=== PATIENT | female | born 1960 | race Caucasian/White ===

== ENCOUNTER 2018-03-29 15:15 | Inpatient (IN) | payer MEDICARE, SELFPAY ==
[2018-03-29 15:37] VITALS: BP 100/59; PULSE 78; RESP 16; TEMP 36.7; O2SAT 92; BMI 20.7
[2018-03-29 16:00] VITALS: BP 100/59; PULSE 78; RESP 16; TEMP 36.7; O2SAT 92
--- NOTE | 2018-03-29 16:47 | PCM.PROGNOTE ---
<Ye Momin - Last Filed: 03/29/18 16:47> Subjective: This is a 57 year old female sent to the rehab unit following meningioma resection (9th occurrence) and CHARGE AUDITOR shunt placement in [facility] per Dr. Carolina. She has had decline in balance and requires PTOT prior to return home. She has had a recurrent meningioma and CSF leak. She experienced some hallucinations at the hospital prior to DC and initially today was wanting to go home apparently not wanting to be here and not remembering that she needed rehab but her son calmed her down. She also initially was not sure where she was but at the moment seems to have retained what the nurse told her. She reports of mild frontal right sided headache and blurry left eye vision. She also complains of no BM in 11 days. She has BL lower abdominal discomfort. No Nausea or vomiting. No issues with suture sights. No Fevers or chills. She has a listed hx of HTN but it is well controlled and she does not take anything for this. - Physical Exam General: Alert, Oriented x3, Cooperative HEENT: PERRLA, EOMI, Normocephalic, - - post surgical skull. sutures intact, no inflammation Neck: Supple, No JVD, Negative Carotid Bruits Lungs: Clear to auscultation, Normal air movement Cardiovascular: Regular rate, No murmurs, - Abdomen: Bowel Sounds Present, Soft, Non Tender, Hypoactive Bowel Sounds, - - right abdomen suture Extremities: No edema, Capillary Refill Less than 3 Seconds Skin: No rashes, No breakdown, - Musculoskeletal: No Tenderness to Palpation of Joints or Extremities Neurological: Cranial nerves II-XII grossly intact Psych/Mental Status: Normal Affect, Appropriate, Alert and oriented to time, place, person, mood and affect Vital Signs Temp Pulse Resp BP Pulse Ox 98.1 F 78 16 100/59 L 92 03/29/18 16:00 03/29/18 16:00 03/29/18 16:00 03/29/18 16:00 03/29/18 16:00 Oxygen Delivery Method Room Air Weight: 59.9 kg Body Mass Index (BMI) 20.7 Assessment/Plan 1. Recurrent Meningioma and CSF leak s/p resection and CHARGE AUDITOR shunt (on 03/15/2018) - Right sphenoid wing. Surgeon was Dr. Carolina. Monitor for recurrent hallucinations, impulsive behavior, memory deficits. Recurrent - 9th surgery. -tylenol for headache 2. HTN - stable, not on meds 3. Constipation - initiate bowel protocol 4. Debility/Unsteady gait - PTOT per rehab team. 5. Moderate protein calorie malnutrition - dietary eval/supplements. This patient was seen by Ye Momin PA-C under the supervision of Dr. Solo <ShaileshpilyIdania morgan - Last Filed: 03/29/18 18:38> - Physical Exam Vital Signs Temp Pulse Resp BP Pulse Ox 98.1 F 78 16 100/59 L 95 03/29/18 16:00 03/29/18 16:00 03/29/18 16:00 03/29/18 16:00 03/29/18 17:10 Oxygen Delivery Method Room Air Weight: 132 lb 0.91 oz Body Mass Index (BMI) 20.7 Assessment/Plan Hospitalist note: I am seeing this patient in conjunction with Ye Momin. I independently seen and examined the patient. Progress note above reviewed and I agree with above treatment plan. Patient was admitted to rehabilitation unit after she underwent meningioma resection and CHARGE AUDITOR shunt placement on March 15, 2018. Her history of recurrent meningiomas, this is the ninth recurrence. We are seeing this patient in consultation for medical management after admission to rehabilitation unit. Patient has been having some issues with hallucination. She does have right eye ptosis and according to her, this is because of the 1 of the surgeries for the meningioma. At this time, her vital signs are stable. - Physical Exam General: Alert, Oriented x3, Cooperative, No apparent distress. HEENT: Atraumatic, PERRLA, EOMI. Neck: Supple, No JVD, Negative Carotid Bruits, Trachea Midline, Thyroid Normal. Lungs: Clear to auscultation, Normal air movement, No rhonchi, No wheeze, No rales. Cardiovascular: Regular rate, Regular Rhythm, Normal S1, Normal S2, PMI Normal. Abdomen: Bowel Sounds Present, Soft, Non Tender, Non-Distended, No Hepato-splenomegaly. Extremities: No clubbing, No cyanosis, No edema Skin: No rashes, No breakdown Neurological: Right eye ptosis, other cranial nerves are intact, normal power and tone of all limbs. Vital Signs are stable. Assessment and plan: #1 status post meningioma resection and CHARGE AUDITOR shunt due to CSF leak, this was performed on March 15, 2018. Vital signs are stable. Plan for PT OT according to rehab team. CBC and BMP ordered for tomorrow. #2 other chronic medical problems: Stable, continue current medications as above. This note was generated with [employer] dictation software. It may contain incorrect words, spelling, and punctuation that were not noted in checking the note before signing. Code Visit Inpatient E&M: 86561 Subs Hosp L2
--- NOTE | 2018-03-29 16:58 | PN_ITS ---
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 Carolina. She has had decline in balance and requires PTOT prior to return home. She has had a recurrent meningioma and CSF leak. She experienced some hallucinations at the hospital prior to DC and initially today was wanting to go home apparently not wanting to be here and not remembering that she needed rehab but her son calmed her down. She also initially was not sure where she was but at the moment seems to have retained what the nurse told her. She reports of mild frontal right sided headache and blurry left eye vision. She also complains of no BM in 11 days. She has BL lower abdominal discomfort. No Nausea or vomiting. No issues with suture sights. No Fevers or chills. She has a listed hx of HTN but it is well controlled and she does not take anything for this. - Physical Exam General: Alert, Oriented x3, Cooperative HEENT: PERRLA, EOMI, Normocephalic, - - post surgical skull. sutures intact, no inflammation Neck: Supple, No JVD, Negative Carotid Bruits Lungs: Clear to auscultation, Normal air movement Cardiovascular: Regular rate, No murmurs, - Abdomen: Bowel Sounds Present, Soft, Non Tender, Hypoactive Bowel Sounds, - - right abdomen suture Extremities: No edema, Capillary Refill Less than 3 Seconds Skin: No rashes, No breakdown, - Musculoskeletal: No Tenderness to Palpation of Joints or Extremities Neurological: Cranial nerves II-XII grossly intact Psych/Mental Status: Normal Affect, Appropriate, Alert and oriented to time, place, person, mood and affect Vital Signs Temp Pulse Resp BP Pulse Ox 98.1 F 78 16 100/59 L 92 03/29/18 16:00 03/29/18 16:00 03/29/18 16:00 03/29/18 16:00 03/29/18 16:00 Oxygen Delivery Method Room Air Weight: 59.9 kg Body Mass Index (BMI) 20.7 Assessment/Plan 1. 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 Surgeon was Dr. Carolina. Monitor for recurrent hallucinations, impulsive behavior, memory deficits. Recurrent - 9th surgery. -tylenol for headache 2. HTN - stable, not on meds 3. Constipation - initiate bowel protocol 4. Debility/Unsteady gait - PTOT per rehab team. 5. Moderate protein calorie malnutrition - dietary eval/supplements. This patient was seen by Ye Momin PA-C under the supervision of Dr. Solo <ShaileshpilyIdania morgan - Last Filed: 03/29/18 18:38> - Physical Exam Vital Signs Temp Pulse Resp BP Pulse Ox 98.1 F 78 16 100/59 L 95 03/29/18 16:00 03/29/18 16:00 03/29/18 16:00 03/29/18 16:00 03/29/18 17:10 Oxygen Delivery Method Room Air Weight: 132 lb 0.91 oz Body Mass Index (BMI) 20.7 Assessment/Plan Hospitalist note: I am seeing this patient in conjunction with Ye Momin. I independently seen and examined the patient. Progress note above reviewed and I agree with above treatment plan. 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 Her history of recurrent meningiomas, this is the ninth recurrence. We are seeing this patient in consultation for medical management after admission to rehabilitation unit. Patient has been having some issues with hallucination. She does have right eye ptosis and according to her, this is because of the 1 of the surgeries for the meningioma. At this time, her vital signs are stable. - Physical Exam General: Alert, Oriented x3, Cooperative, No apparent distress. HEENT: Atraumatic, PERRLA, EOMI. Neck: Supple, No JVD, Negative Carotid Bruits, Trachea Midline, Thyroid Normal. Lungs: Clear to auscultation, Normal air movement, No rhonchi, No wheeze, No rales. Cardiovascular: Regular rate, Regular Rhythm, Normal S1, Normal S2, PMI Normal. Abdomen: Bowel Sounds Present, Soft, Non Tender, Non-Distended, No Hepato- splenomegaly. Extremities: No clubbing, No cyanosis, No edema Skin: No rashes, No breakdown Neurological: Right eye ptosis, other cranial nerves are intact, normal power and tone of all limbs. Vital Signs are stable. 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 Vital signs are stable. Plan for PT OT according to rehab team. CBC and BMP ordered for tomorrow. #2 other chronic medical problems: Stable, continue current medications as above. This note was generated with delicious dictation software. It may contain incorrect words, spelling, and punctuation that were not noted in checking the note before signing. Code Visit Inpatient E&M: 94950 Subs Hosp L2
[2018-03-29 17:10] VITALS: O2SAT 95
[2018-03-29 20:54] VITALS: BP 113/74; PULSE 78; RESP 16; TEMP 36.8; O2SAT 92
[2018-03-29] MEDS: Senna/Docusate Sodium 1 Tablet 2 TABLET PO (21:12)
[2018-03-29] MEDS: ALPRAZolam 0.25 MG Tablet PO (21:13)
[2018-03-30] MEDS: Enoxaparin 30 MG/0.3 ML Syringe SC (06:39)
[2018-03-30 07:31] VITALS: O2SAT 91
[2018-03-30] MEDS: HYDROcodone Bitartrate/Apap 5/325 Tablet PO (07:55)
[2018-03-30] MEDS: Senna/Docusate Sodium 1 Tablet 2 TABLET PO ×2 (07:56→21:11)
[2018-03-30 08:04] VITALS: BP 92/57; PULSE 101; RESP 16; TEMP 36.9; O2SAT 92
[2018-03-30 08:14] LABS: Absolute Lymphocyte Count 2.24 X10^3/ul (0.83-4.51); Absolute Neutrophil Count 5.7 X10^3/uL (2.0-7.7); Basophil# 0.07 X10^3/uL; Basophil% 0.8 % (0-1); Eosinophil# 0.21 X10^3/uL; Eosinophils% 2.4 % (0-5); Hematocrit 38.7 % (37-47); Lymphocyte # 2.24 X10^3/ul (4.0); Lymphocyte % 25.5 % (19-41); Mean Corp Hgb Conc 33.6 g/gl (32-36); Mean Corpuscular Hgb 32.7 pg (27.0-32.0); Mean Corpuscular Volume 97.5 fL (81-99); Mean Platelet Vol. 9.3 fl (6.2-12.0); Monocyte# 0.56 X10^3/uL; Monocyte% 6.4 % (0-10); Neutrophil # 5.67 X10^3/uL (2.7-7.7); Neutrophil % 64.7 % (47-70); Platelet Count 373 K/mm3 (150-450); RBC Distribution Width CV 13.2 % (11.6-14.6); RBC Distribution Width SD 46.1 fl (35.1-43.9); Red Blood Count 3.97 M/mm3 (4.2-5.4); White Blood Count 8.8 K/mm3 (4.4-11.0)
[2018-03-30 08:16] LABS: POSITIVE COUNT NO; POSITIVE DIFFERENTIAL NO; POSITIVE MORPHOLOGY NO
[2018-03-30 08:30] LABS: Anion Gap 6 (5-15); BUN 5 mg/dL (7-18); BUN/Creat Ratio 9.9 RATIO (10-20); Calcium,Total 9.1 mg/dL (8.5-10.1); Chloride 105 mmol/L (98-107); Creatinine, Serum 0.51 mg/dL (0.55-1.02); EST Glomerular Filtration Rate 133 mL/min (>60); Est Glom Filt Rate - Afr Amer 160 mL/min (>60); Glucose 78 mg/dL (74-106); Potassium 3.6 mmol/L (3.5-5.1); Sodium Level 140 mmol/L (136-145)
--- NOTE | 2018-03-30 12:53 | NURSING ---
pt refusing milk of mag offered d/t constipation. States I'm not taking that right now. Will reapproach.
[2018-03-30] MEDS: Magnesium Hydroxide 30 ML UDC PO (15:01)
--- NOTE | 2018-03-30 15:09 | PCM.HP.STD ---
History of Present Illness Date of Admission: 03/29/18 Chief Complaint: Debility The patient is a 57 year old male who is admitted to the [facility] acute rehab unit status post resection of the right sphenoid wing meningioma which was complicated by a CSF leak requiring apparently multiple surgical repairs. She was originally admitted to [place] 03/15/18 for meningioma resection. It is indicate that she did have some hallucinations as well as uncontrolled hypertension nausea and vomiting in the hospital. She does live with her son she describes a two-story house. Going to the hospital notes from [place] she was independent prior to her admission there. Notes also indicate that she has been constipated for quite some time. Her surgery was performed 03/15/[address] clark in [place]. 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 She actually currently is somnolent and denies having a recent surgery. Anger of her history at this point is unclear. The patient is unable to elucidate this and I do not have any other records. Past Medical History Medical History: Medical History (Last Updated 03/29/18 @ 15:53 by Carolina Marie) Cerebrospinal fluid leak G96.0 Former smoker Z87.891 Intracranial meningioma D32.0 Allergies carbamazepine Adverse Reaction (Verified 03/29/18 15:43) Unknown codeine Adverse Reaction (Verified 03/29/18 15:43) Unknown Home Medications: Ambulatory Orders Medication Instructions Recorded ALPRAZolam [Xanax] 0.25 mg PO QHS 03/29/18 Carboxymethyl/Gly/Poly80/Pf 1 each OP TID 03/29/18 [Refresh Optive Advanced Drops] Cholecalciferol (Vitamin D3) 1,000 unit PO DAILY 03/29/18 [Vitamin D3] Fluorometholone Acetate [Flarex] 1 drop RIGHT EYE BID 03/29/18 Hydrocodone/Acetaminophen 1 each PO Q8H PRN 03/29/18 [Hydrocodon-Acetaminophen 5-325] Smoking Status: Heavy Smoker (>10/day) Tobacco Use: Cigarettes Review of Systems Unable to obtain accurate/complete ROS d/t: Is somnolent does arouse and is unable to give me history. VTE Information - Inpt Only VTE Present on Admission: Yes VTE Pharm Prophylaxis ordered?: Yes - Physical Exam General: Lethargic Lungs: Clear to auscultation Cardiovascular: Regular rate Extremities: No Calf Tenderness Neurological: - - Neurologic exam she is sleepy but she arouses to voice and follows simple commands. She has right ptosis and proptosis, and decreased vision on the right apparently she is blind in her right eye. Neurologic examination is otherwise intact. Vital Signs Temp Pulse Resp BP Pulse Ox 36.9 C 101 H 16 92/57 L 92 03/30/18 08:04 03/30/18 08:04 03/30/18 08:04 03/30/18 08:04 03/30/18 08:04 Oxygen Delivery Method Room Air Weight: 59.9 kg Body Mass Index (BMI) 20.7 Intake and Output for Last 24 Hours 03/28/18 03/29/18 03/30/18 23:59 23:59 23:59 Intake Total 80 / 80 Balance 80 / 80 Laboratory Tests Past 24 Hrs 03/30/18 03/30/18 07:40 07:40 WBC 8.8 RBC 3.97 L Hgb 13.0 Hct 38.7 MCV 97.5 MCH 32.7 H MCHC 33.6 RDW 13.2 RDW Differential 46.1 H Plt Count 373 MPV 9.3 Immature Gran % (Auto) 0.200 Neut % (Auto) 64.7 Lymph % (Auto) 25.5 [place] % (Auto) 6.4 Eos % (Auto) 2.4 Baso % (Auto) 0.8 Absolute Neuts (auto) 5.7 Absolute Lymphs (auto) 2.24 Total Counted Not Reportable Sodium 140 Potassium 3.6 Chloride 105 Carbon Dioxide 29.0 Anion Gap 6 BUN 5 L Creatinine 0.51 L Estim Creat Clear Calc 113.70 Est GFR (MDRD) Af Amer 160 Est GFR (MDRD) Non-Af 133 BUN/Creatinine Ratio 9.9 L Glucose 78 Calcium 9.1 Current Medications Generic Name Dose Route Start Last Admin Trade Name Freq PRN Reason Stop Dose Admin Acetaminophen 650 mg 03/29/18 16:56 Tylenol PO Q6H PRN PRN HEADACHE Hydrocodone Bitart/Acetaminophen 1 tablet 03/29/18 17:47 03/30/18 07:55 [place] 5mg-325mg PO 1 tablet Q8H PRN Administration PAIN Alprazolam 0.25 mg 03/29/18 22:00 03/29/18 21:13 Xanax PO 0.25 mg QHS BRO Administration Artificial Tears 1 drop 03/29/18 22:00 03/30/18 14:59 Tears Naturale, Artificial Tears OPHTHALMIC 1 drop TID BRO Administration Bisacodyl 10 mg 03/29/18 16:37 Dulcolax RECTAL X1 PRN CONSTIPATION Cholecalciferol 1,000 unit 03/30/18 10:00 03/30/18 07:56 Vitamin D PO 1,000 unit DAILY BRO Administration Enoxaparin Sodium 30 mg 03/30/18 06:00 03/30/18 06:39 Lovenox SC 30 mg DAILY@0600 BRO Administration Non-Formulary Medication 1 drop 03/29/18 22:00 Fluorometholone Acetate RIGHT EYE BID [facility] Nutritional Formula (Lactose Free) 120 ml 03/30/18 14:00 03/30/18 15:02 Ensure Enlive PO 120 ml 4X/DAY BRO Administration Prednisolone Acetate 1 drop 03/30/18 22:00 Pred Forte Eye Drops (1 Ml) RIGHT EYE BID BRO Senna/Docusate Sodium 2 tablet 03/29/18 22:00 03/30/18 07:56 Senokot-S, Lissette-Colace PO 2 tablet BID BRO Administration Assessment/Plan Early status post meningioma resection status post CSF leak and shunt. The patient was previously independent goal of rehab is [facility] of prior level functional independence. Plan: Physical therapy for gait and balance Occupational Therapy for ADLs Speech therapy for speech and swallowing as well as cognition As needed analgesics Bowel protocol DVT prophylaxis: Lovenox Circadian disruption: Will stimulate during daytime with therapies hopefully this will resolve if not they need to address further by adjusting her Xanax dose or adding other sleep aids.
--- NOTE | 2018-03-30 15:16 | HP.PCM_ITS ---
History of Present Illness Date of Admission: 03/29/18 Chief Complaint: Debility The patient is a 57 year old male who is admitted to the [facility] acute rehab unit status post resection of the right sphenoid wing meningioma which was complicated by a CSF leak requiring apparently multiple surgical repairs. She was originally admitted to [place] 03/15/18 for meningioma resection. It is indicate that she did have some hallucinations as well as uncontrolled hypertension nausea and vomiting in the hospital. She does live with her son she describes a two-story house. Going to the hospital notes from [place] she was independent prior to her admission there. Notes also indicate that she has been constipated for quite some time. Her surgery was performed 03/15/[address] clark in [place]. 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 She actually currently is somnolent and denies having a recent surgery. Anger of her history at this point is unclear. The patient is unable to elucidate this and I do not have any other records. Past Medical History Medical History: Medical History (Last Updated 03/29/18 @ 15:53 by Carolina Marie) Cerebrospinal fluid leak G96.0 Former smoker Z87.891 Intracranial meningioma D32.0 Allergies carbamazepine Adverse Reaction (Verified 03/29/18 15:43) Unknown codeine Adverse Reaction (Verified 03/29/18 15:43) Unknown Home Medications: Ambulatory Orders Medication Instructions Recorded ALPRAZolam [Xanax] 0.25 mg PO QHS 03/29/18 Carboxymethyl/Gly/Poly80/Pf 1 each OP TID 03/29/18 [Refresh Optive Advanced Drops] Cholecalciferol (Vitamin D3) 1,000 unit PO DAILY 03/29/18 [Vitamin D3] Fluorometholone Acetate [Flarex] 1 drop RIGHT EYE BID 03/29/18 Hydrocodone/Acetaminophen 1 each PO Q8H PRN 03/29/18 [Hydrocodon-Acetaminophen 5-325] Smoking Status: Heavy Smoker (>10/day) Tobacco Use: Cigarettes Review of Systems Unable to obtain accurate/complete ROS d/t: Is somnolent does arouse and is unable to give me history. VTE Information - Inpt Only VTE Present on Admission: Yes VTE Pharm Prophylaxis ordered?: Yes - Physical Exam General: Lethargic Lungs: Clear to auscultation Cardiovascular: Regular rate Extremities: No Calf Tenderness Neurological: - - Neurologic exam she is sleepy but she arouses to voice and follows simple commands. She has right ptosis and proptosis, and decreased vision on the right apparently she is blind in her right eye. Neurologic examination is otherwise intact. Vital Signs Temp Pulse Resp BP Pulse Ox 36.9 C 101 H 16 92/57 L 92 03/30/18 08:04 03/30/18 08:04 03/30/18 08:04 03/30/18 08:04 03/30/18 08:04 Oxygen Delivery Method Room Air Weight: 59.9 kg Body Mass Index (BMI) 20.7 Intake and Output for Last 24 Hours 03/28/18 03/29/18 03/30/18 23:59 23:59 23:59 Intake Total 80 / 80 Balance 80 / 80 Laboratory Tests Past 24 Hrs 03/30/18 03/30/18 07:40 07:40 WBC 8.8 RBC 3.97 L Hgb 13.0 Hct 38.7 MCV 97.5 MCH 32.7 H MCHC 33.6 RDW 13.2 RDW Differential 46.1 H Plt Count 373 MPV 9.3 Immature Gran % (Auto) 0.200 Neut % (Auto) 64.7 Lymph % (Auto) 25.5 [place] % (Auto) 6.4 Eos % (Auto) 2.4 Baso % (Auto) 0.8 Absolute Neuts (auto) 5.7 Absolute Lymphs (auto) 2.24 Total Counted Not Reportable Sodium 140 Potassium 3.6 Chloride 105 Carbon Dioxide 29.0 Anion Gap 6 BUN 5 L Creatinine 0.51 L Estim Creat Clear Calc 113.70 Est GFR (MDRD) Af Amer 160 Est GFR (MDRD) Non-Af 133 BUN/Creatinine Ratio 9.9 L Glucose 78 Calcium 9.1 Current Medications Generic Name Dose Route Start Last Admin Trade Name Freq PRN Reason Stop Dose Admin Acetaminophen 650 mg 03/29/18 16:56 Tylenol PO Q6H PRN PRN HEADACHE Hydrocodone Bitart/Acetaminophen 1 tablet 03/29/18 17:47 03/30/18 07:55 [place] 5mg-325mg PO 1 tablet Q8H PRN Administration PAIN Alprazolam 0.25 mg 03/29/18 22:00 03/29/18 21:13 Xanax PO 0.25 mg QHS BRO Administration Artificial Tears 1 drop 03/29/18 22:00 03/30/18 14:59 Tears Naturale, Artificial Tears OPHTHALMIC 1 drop TID BRO Administration Bisacodyl 10 mg 03/29/18 16:37 Dulcolax RECTAL X1 PRN CONSTIPATION Cholecalciferol 1,000 unit 03/30/18 10:00 03/30/18 07:56 Vitamin D PO 1,000 unit DAILY BRO Administration Enoxaparin Sodium 30 mg 03/30/18 06:00 03/30/18 06:39 Lovenox SC 30 mg DAILY@0600 BRO Administration Non-Formulary Medication 1 drop 03/29/18 22:00 Fluorometholone Acetate RIGHT EYE BID [facility] Nutritional Formula (Lactose Free) 120 ml 03/30/18 14:00 03/30/18 15:02 Ensure Enlive PO 120 ml 4X/DAY BRO Administration Prednisolone Acetate 1 drop 03/30/18 22:00 Pred Forte Eye Drops (1 Ml) RIGHT EYE BID BRO Senna/Docusate Sodium 2 tablet 03/29/18 22:00 03/30/18 07:56 Senokot-S, Lissette-Colace PO 2 tablet BID BRO Administration Assessment/Plan Early status post meningioma resection status post CSF leak and shunt. The patient was previously independent goal of rehab is [facility] of prior level functional independence. Plan: Physical therapy for gait and balance Occupational Therapy for ADLs Speech therapy for speech and swallowing as well as cognition As needed analgesics Bowel protocol DVT prophylaxis: Lovenox Circadian disruption: Will stimulate during daytime with therapies hopefully this will resolve if not they need to address further by adjusting her Xanax dose or adding other sleep aids.
--- NOTE | 2018-03-30 15:19 | REHABEVAL_ITS ---
Admission Information Status Changes from Prescreening?: No changes Identified Actual Problem List:: Pain, ALteration in Cmfrt, Cognitve Impr/Memory Loss, Bowel, Constipation, Alteration in Sleep, Alteration in Nutrition, Mobility Impaired, Self Care Deficit, Ineffective Communication, Know.Dfct/Disease Process, Know.Dfct of Medicaitons, BP, Hypertension, Ineffect.D/C Plan r/t Psy Potential Problem List:: DVT, Bleeding, Infection, UTI, Aspiration, Falls, Skin Integrity, Depression Risk of Complications DVT: LMWH, MELECIO Hose, Sequential Compression Device Bleeding: Monitor Lab Values, Nursing to Teach Precautions for anti-coagulation therapy., Wound, if applicable, to be assessed every shift., Stroke patients assessed for lethargy or change in status. Infection: Clinical Staff to Monitor for S/S of infection:, S/S of infection include fever, redness, warmth, etc. Urinary Tract Infection: Monitor for frequency, burning, discomfort, or incontinence., Nursing will obtain urine sample for urinalysis and C&S when ordered. Aspiration: Clinical staff will monitor for coughing, drooling, congestion., Speech will evaluate swallowing and dsyphasia., Nursing will monitor patient swallowing during meals. Falls: Patient will be evaluated for Fall Precautions, Patient will be placed on Fall Precautions as indicated per protocol. Skin Breakdown: Nursing will assess skin daily using assessment tool., Nursing will place on Skin Breakdown Precautions as indicated. Pain: Clinical staff will assess patient's pain level per protocol., Medications will be given, if needed, and the pain level reassessed., Other methods: Massage, distraction, decrease stimulus, etc. used PRN. Plan of Care Patient requires physician specializing in physical medicine and rehab oversight to provide close medical supervision of rehab issues including: Pain Management, Sleep Problems, Bowel and Bladder, Medical and co-morbidity Management, DVT prophylaxis, Rehabilitation Leadership, Coordination of treatment team Patient needs Physical Therapy: For a minimum of 1 hour, At least 5 out of 7 days Patient needs Physical Therapy to improve:: Mobility, Mobility, Mobility, Strengthening, Transfers, Stretching, ROM, Endurance, Stairs, Gait, Balance Patient needs Occupational Therapy: For a minimum of 1 hour, At least 5 out of 7 days Patient needs Occupational Therapy to improve ADL's incl.: Eating, Grooming, Bathing, Dressing, Toileting, Toilet transfers, Community Reintegration, Higher functioning activities, Household tasks, Adaptive Equipment, Splinting, Other activities as determined Patient requires speech therapy: For a minimum of 1 hour, At least 5 out of 7 days Patient requires speech therapy for: Swallowing, Cognition, Language Skills, Compensatory Strategies Patient requires 24/ Rehabilitation Nursing for: Pain Issues, Identifying and preventing risk factors, Monitoring and reporting current medical conditions, Assisting with ambulation, transfer, and all ADL's, Teaching patients about disease process and medications, Family teaching, Providing safe environment, Bowel and Bladder Issues, Skin integrity, Medication Management Patient needs B2B Sales Professional/ Case Management for: Discharge Planning, Arranging Home Equipment or Services, Family Interventions Patient needs Dietary and Nutrition Services for: Adequate Nutrition, Nutritional Supplements, Nutritional Education Goals Patient will remain: free from falls, or injury at time of discharge. Patient will perform bed mobility at: MOD I level of assist. Patient will complete transfers from bed to chair at: MOD I level of assist. Patient will ambulate: 100 feet, with MOD I assist, with LRD Patient will complete upper body dressing at: MOD I level of assist. Patient will complete lower body dressing at: MOD I level of assist. Patient will complete toileting at: MOD I level of assist. Patient will perform bathing at: MOD I level of assist. Patient will complete grooming at: MOD I level of assist. Patient will complete home management skills at: MOD I level of assist. Patient will achieve: 12 stairs, at MOD I assist Patient will have pain level of: of 3 or less Patient's skin will: remain intact, free from infection. Patient will receive: adequate nutrition. Discharge Planning Pt Prognosis for Sig. Practical Improv. w/in Reasonable Time: Good Anticipated D/C Destination: Home with Outpt Therapy Was Preadmission Assessment Accurate?: Yes
--- NOTE | 2018-03-30 15:58 | NURSING ---
Walked pt around the [place], pt tolerated well.
[2018-03-30 19:29] VITALS: BP 91/65; PULSE 88; RESP 18; TEMP 36.8; O2SAT 95
[2018-03-30] MEDS: prednisoLONE eye drops (1 mL) 1 DROP OPTH.BTL 1 DRP RIGHT EYE (21:11)
[2018-03-30] MEDS: ALPRAZolam 0.25 MG Tablet PO (21:12)
[2018-03-30] MEDS: Bisacodyl 10 MG Suppository RECTAL (21:16)
--- NOTE | 2018-03-31 01:33 | NURSING ---
Pt set off alarms frequently while settling down for the night. Pt c/o cramping from the suppository and felt urgency to use the toilet, getting up on own till staff got into room in response to alarms. Pt finally settled down and is now resting quietly in bed with no s/sx of distress or discomfort.
[2018-03-31] MEDS: Enoxaparin 30 MG/0.3 ML Syringe SC (06:30)
[2018-03-31] MEDS: prednisoLONE eye drops (1 mL) 1 DROP OPTH.BTL 1 DRP RIGHT EYE ×2 (08:05→20:29)
[2018-03-31 08:26] VITALS: BP 89/59; PULSE 95; RESP 17; TEMP 36.8; O2SAT 92
[2018-03-31 20:24] VITALS: BP 93/65; PULSE 83; RESP 17; TEMP 36.8; O2SAT 92
[2018-03-31] MEDS: Senna/Docusate Sodium 1 Tablet 2 TABLET PO (20:29)
[2018-03-31] MEDS: ALPRAZolam 0.25 MG Tablet PO (20:40)
[2018-04-01] MEDS: Enoxaparin 30 MG/0.3 ML Syringe SC (05:43)
[2018-04-01 08:10] VITALS: BP 101/66; PULSE 86; RESP 18; TEMP 36.6; O2SAT 96
[2018-04-01] MEDS: prednisoLONE eye drops (1 mL) 1 DROP OPTH.BTL 1 DRP RIGHT EYE ×2 (08:12→20:34)
[2018-04-01] MEDS: Senna/Docusate Sodium 1 Tablet 2 TABLET PO ×2 (08:12→20:35)
[2018-04-01] MEDS: Acetaminophen 325 MG Tablet 650 MG PO (08:15)
--- NOTE | 2018-04-01 10:51 | PCM.PN.NEU ---
Subjective: Patient seen and examined. Complaining of a slight headache, has Tylenol and [place] available. Tolerating therapy. Nursing called surgeon to confirm wound care involving the incision located on her head, the patient may shower and wash her her using baby shampoo, scrub or scratching her head. The incision site has a mesh like dressing which is C/d/I. - Physical Exam General: Alert, Oriented x3, Cooperative HEENT: Atraumatic, PERRLA, EOMI, Normocephalic Neck: Supple, No JVD, Negative Carotid Bruits Lungs: Clear to auscultation, Normal air movement Cardiovascular: Regular rate, No murmurs Abdomen: Bowel Sounds Present, Soft, Non Tender Extremities: No edema, Capillary Refill Less than 3 Seconds Skin: No rashes, No breakdown Musculoskeletal: No Tenderness to Palpation of Joints or Extremities Neurological: Cranial nerves II-XII grossly intact Psych/Mental Status: Normal Affect, Appropriate, Alert and oriented to time, place, person, mood and affect Vital Signs Temp Pulse Resp BP Pulse Ox 97.8 F 86 18 101/66 96 04/01/18 08:10 04/01/18 08:10 04/01/18 08:10 04/01/18 08:10 04/01/18 08:10 Oxygen Delivery Method Room Air Weight: 59.9 kg Body Mass Index (BMI) 20.7 Intake and Output for Last 24 Hours 03/30/18 03/31/18 04/01/18 23:59 23:59 23:59 Intake Total 280 / 280 485 / 485 460 / 460 Balance 280 / 280 485 / 485 460 / 460 Active Medications Acetaminophen (Tylenol) 1,000 mg PO Q8H PRN PRN PRN Reason: HEADACHE Hydrocodone Bitart/Acetaminophen ([place] 5mg-325mg) 1 tablet PO Q8H PRN PRN Reason: PAIN Last Admin: 04/01/18 10:53 Dose: 1 tablet Alprazolam (Xanax) 0.25 mg PO QHS [facility] Last Admin: 03/31/18 20:40 Dose: 0.25 mg Artificial Tears (Tears Naturale, Artificial Tears) 1 drop OPHTHALMIC TID [facility] Last Admin: 04/01/18 05:44 Dose: 1 drop Bisacodyl (Dulcolax) 10 mg RECTAL X1 PRN PRN Reason: CONSTIPATION Last Admin: 03/30/18 21:16 Dose: 10 mg Cholecalciferol (Vitamin D) 1,000 unit PO DAILY [facility] Last Admin: 04/01/18 08:12 Dose: 1,000 unit Enoxaparin Sodium (Lovenox) 30 mg SC DAILY@0600 [facility] Last Admin: 04/01/18 05:43 Dose: 30 mg Nutritional Formula (Lactose Free) (Ensure Enlive) 120 ml PO 4X/DAY [facility] Last Admin: 04/01/18 08:12 Dose: 120 ml Prednisolone Acetate (Pred Forte Eye Drops (1 Ml)) 1 drop RIGHT EYE BID [facility] Last Admin: 04/01/18 08:12 Dose: 1 drop Senna/Docusate Sodium (Senokot-S, Lissette-Colace) 2 tablet PO BID [facility] Last Admin: 04/01/18 08:12 Dose: 2 tablet Medical Necessity - Tobacco Use Smoking Status: Heavy Smoker (>10/day) Tobacco Use: Cigarettes Assessment/Plan Early status post meningioma resection status post CSF leak and shunt. The patient was previously independent goal of rehab is adventist of prior level functional independence. Plan: - Physical therapy for gait and balance - Occupational Therapy for ADLs - Speech therapy for speech and swallowing as well as cognition - As needed analgesics - Bowel protocol - DVT prophylaxis: Lovenox, SCDs, Kael han - Circadian disruption: Will stimulate during daytime with therapies hopefully this will resolve if not they need to address further by adjusting her Xanax dose or adding other sleep aids. - Donor site - C/D/I keep covered with adaptive dressing, do not place gait belt over the area, or below the breast area, may place belt above the breast. - Head incision - May shampoo hair, do not rub incision site, do not scratch incision site. Pat dy incision area.
[2018-04-01] MEDS: HYDROcodone Bitartrate/Apap 5/325 Tablet PO (10:53)
--- NOTE | 2018-04-01 11:02 | PN.NEURO_ITS ---
Subjective: Patient seen and examined. Complaining of a slight headache, has Tylenol and [place] available. Tolerating therapy. Nursing called surgeon to confirm wound care involving the incision located on her head, the patient may shower and wash her her using baby shampoo, scrub or scratching her head. The incision site has a mesh like dressing which is C/d/I. - Physical Exam General: Alert, Oriented x3, Cooperative HEENT: Atraumatic, PERRLA, EOMI, Normocephalic Neck: Supple, No JVD, Negative Carotid Bruits Lungs: Clear to auscultation, Normal air movement Cardiovascular: Regular rate, No murmurs Abdomen: Bowel Sounds Present, Soft, Non Tender Extremities: No edema, Capillary Refill Less than 3 Seconds Skin: No rashes, No breakdown Musculoskeletal: No Tenderness to Palpation of Joints or Extremities Neurological: Cranial nerves II-XII grossly intact Psych/Mental Status: Normal Affect, Appropriate, Alert and oriented to time, place, person, mood and affect Vital Signs Temp Pulse Resp BP Pulse Ox 97.8 F 86 18 101/66 96 04/01/18 08:10 04/01/18 08:10 04/01/18 08:10 04/01/18 08:10 04/01/18 08:10 Oxygen Delivery Method Room Air Weight: 59.9 kg Body Mass Index (BMI) 20.7 Intake and Output for Last 24 Hours 03/30/18 03/31/18 04/01/18 23:59 23:59 23:59 Intake Total 280 / 280 485 / 485 460 / 460 Balance 280 / 280 485 / 485 460 / 460 Active Medications Acetaminophen (Tylenol) 1,000 mg PO Q8H PRN PRN PRN Reason: HEADACHE Hydrocodone Bitart/Acetaminophen ([place] 5mg-325mg) 1 tablet PO Q8H PRN PRN Reason: PAIN Last Admin: 04/01/18 10:53 Dose: 1 tablet Alprazolam (Xanax) 0.25 mg PO QHS [facility] Last Admin: 03/31/18 20:40 Dose: 0.25 mg Artificial Tears (Tears Naturale, Artificial Tears) 1 drop OPHTHALMIC TID [facility] Last Admin: 04/01/18 05:44 Dose: 1 drop Bisacodyl (Dulcolax) 10 mg RECTAL X1 PRN PRN Reason: CONSTIPATION Last Admin: 03/30/18 21:16 Dose: 10 mg Cholecalciferol (Vitamin D) 1,000 unit PO DAILY [facility] Last Admin: 04/01/18 08:12 Dose: 1,000 unit Enoxaparin Sodium (Lovenox) 30 mg SC DAILY@0600 [facility] Last Admin: 04/01/18 05:43 Dose: 30 mg Nutritional Formula (Lactose Free) (Ensure Enlive) 120 ml PO 4X/DAY [facility] Last Admin: 04/01/18 08:12 Dose: 120 ml Prednisolone Acetate (Pred Forte Eye Drops (1 Ml)) 1 drop RIGHT EYE BID [facility] Last Admin: 04/01/18 08:12 Dose: 1 drop Senna/Docusate Sodium (Senokot-S, Lissette-Colace) 2 tablet PO BID [facility] Last Admin: 04/01/18 08:12 Dose: 2 tablet Medical Necessity - Tobacco Use Smoking Status: Heavy Smoker (>10/day) Tobacco Use: Cigarettes Assessment/Plan Early status post meningioma resection status post CSF leak and shunt. The patient was previously independent goal of rehab is rastafarian of prior level functional independence. Plan: - Physical therapy for gait and balance - Occupational Therapy for ADLs - Speech therapy for speech and swallowing as well as cognition - As needed analgesics - Bowel protocol - DVT prophylaxis: Lovenox, SCDs, Kael han - Circadian disruption: Will stimulate during daytime with therapies hopefully this will resolve if not they need to address further by adjusting her Xanax dose or adding other sleep aids. - Donor site - C/D/I keep covered with adaptive dressing, do not place gait belt over the area, or below the breast area, may place belt above the breast. - Head incision - May shampoo hair, do not rub incision site, do not scratch incision site. Pat dy incision area.
--- NOTE | 2018-04-01 12:02 | CASEMGMT ---
Social Work Telephone call to patient son's, Sivakumar and Heber. Updated on team meeting. Both sons work and are unsure if they are able to attend team meeting on . This public health social worker to contact Sivakumar with any updates after team meeting if family is unable to attend. Will continue to follow. Nandini PEÑA, MOLECULAR TECHNOLOGIST
--- NOTE | 2018-04-01 13:22 | NURSING ---
spoke cee at dr clark office. ok for patient to shower, but do not scrub over incision area and use baby shampoo. No drsg required over incision to head. f/u appt with dr clark on 04/16/2018 @ [id number] [place] [id number]
--- NOTE | 2018-04-01 14:10 | NURSING ---
patient a/o x1 self only, constant cues/prompting needed but easily redirected. patient does not call for assistance and attempts self transfers multiple times this shift. Personal alarm, chair alarm, bed alarm and hi low bed.
[2018-04-01 20:03] VITALS: BP 115/71; PULSE 80; RESP 18; TEMP 36.7; O2SAT 94
[2018-04-01] MEDS: ALPRAZolam 0.25 MG Tablet PO (20:37)
--- NOTE | 2018-04-01 21:43 | NURSING ---
Pt's son, Kentrell Hankins, called to check in on todays progress of his mother. Kentrell stated he is concerned about her and would appreciate any update that would occur re:pt status.
--- NOTE | 2018-04-02 03:40 | NURSING ---
Pt setting off bed alarm several times and wondering what time she could get a shower. Pt restless in bed and reoriented to time of night.
[2018-04-02] MEDS: Enoxaparin 30 MG/0.3 ML Syringe SC (05:49)
[2018-04-02] MEDS: HYDROcodone Bitartrate/Apap 5/325 Tablet PO ×2 (06:40→15:33)
[2018-04-02] MEDS: prednisoLONE eye drops (1 mL) 1 DROP OPTH.BTL 1 DRP RIGHT EYE ×2 (07:52→21:56)
[2018-04-02] MEDS: Senna/Docusate Sodium 1 Tablet 2 TABLET PO (07:52)
--- NOTE | 2018-04-02 09:39 | PCM.PN.NEU ---
Subjective: Patient napping in bedside recliner, easily arousable. Was very restless during the night attempting to get out of bed several times, will start low dose of Seroquel at HS. - Physical Exam General: Alert, Oriented x3, Cooperative HEENT: Atraumatic, PERRLA, EOMI, Normocephalic Neck: Supple, No JVD, Negative Carotid Bruits Lungs: Clear to auscultation, Normal air movement Cardiovascular: Regular rate, No murmurs Abdomen: Bowel Sounds Present, Soft, Non Tender Extremities: No edema, Capillary Refill Less than 3 Seconds Skin: No rashes, No breakdown Musculoskeletal: No Tenderness to Palpation of Joints or Extremities Neurological: Cranial nerves II-XII grossly intact Psych/Mental Status: Normal Affect, Appropriate Vital Signs Temp Pulse Resp BP Pulse Ox 98.0 F 80 18 115/71 94 04/01/18 20:03 04/01/18 20:03 04/01/18 20:03 04/01/18 20:03 04/01/18 20:03 Oxygen Delivery Method Room Air Weight: 59.9 kg Body Mass Index (BMI) 20.7 Intake and Output for Last 24 Hours 03/31/18 04/01/18 04/02/18 23:59 23:59 23:59 Intake Total 485 / 485 460 / 460 260 / 260 Balance 485 / 485 460 / 460 260 / 260 Active Medications Acetaminophen (Tylenol) 1,000 mg PO Q8H PRN PRN PRN Reason: HEADACHE Hydrocodone Bitart/Acetaminophen ([place] 5mg-325mg) 1 tablet PO Q8H PRN PRN Reason: PAIN Last Admin: 04/02/18 06:40 Dose: 1 tablet Alprazolam (Xanax) 0.25 mg PO QHS [facility] Last Admin: 04/01/18 20:37 Dose: 0.25 mg Artificial Tears (Tears Naturale, Artificial Tears) 1 drop OPHTHALMIC TID [facility] Last Admin: 04/02/18 05:49 Dose: 1 drop Bisacodyl (Dulcolax) 10 mg RECTAL X1 PRN PRN Reason: CONSTIPATION Last Admin: 03/30/18 21:16 Dose: 10 mg Cholecalciferol (Vitamin D) 1,000 unit PO DAILY [facility] Last Admin: 04/02/18 07:52 Dose: 1,000 unit Enoxaparin Sodium (Lovenox) 30 mg SC DAILY@0600 [facility] Last Admin: 04/02/18 05:49 Dose: 30 mg Nutritional Formula (Lactose Free) (Ensure Enlive) 120 ml PO 4X/DAY [facility] Last Admin: 04/02/18 07:52 Dose: 120 ml Prednisolone Acetate (Pred Forte Eye Drops (1 Ml)) 1 drop RIGHT EYE BID [facility] Last Admin: 04/02/18 07:52 Dose: 1 drop Senna/Docusate Sodium (Senokot-S, Lissette-Colace) 2 tablet PO BID [facility] Last Admin: 04/02/18 07:52 Dose: 2 tablet Medical Necessity - Tobacco Use Smoking Status: Heavy Smoker (>10/day) Tobacco Use: Cigarettes Assessment/Plan Early status post meningioma resection status post CSF leak and shunt. The patient was previously independent goal of rehab is moravian of prior level functional independence. Plan: - Physical therapy for gait and balance - Occupational Therapy for ADLs - Speech therapy for speech and swallowing as well as cognition - As needed analgesics - Bowel protocol - DVT prophylaxis: Lovenox, SCDs, Kael han - Circadian disruption: Will stimulate during daytime with therapies hopefully this will resolve if not they need to address further by adjusting her Xanax dose or adding other sleep aids. - Donor site - C/D/I keep covered with adaptive dressing, do not place gait belt over the area, or below the breast area, may place belt above the breast. - Head incision - May shampoo hair, do not rub incision site, do not scratch incision site. Pat dy incision area.
--- NOTE | 2018-04-02 09:42 | PN.NEURO_ITS ---
Subjective: Patient napping in bedside recliner, easily arousable. Was very restless during the night attempting to get out of bed several times, will start low dose of Seroquel at HS. - Physical Exam General: Alert, Oriented x3, Cooperative HEENT: Atraumatic, PERRLA, EOMI, Normocephalic Neck: Supple, No JVD, Negative Carotid Bruits Lungs: Clear to auscultation, Normal air movement Cardiovascular: Regular rate, No murmurs Abdomen: Bowel Sounds Present, Soft, Non Tender Extremities: No edema, Capillary Refill Less than 3 Seconds Skin: No rashes, No breakdown Musculoskeletal: No Tenderness to Palpation of Joints or Extremities Neurological: Cranial nerves II-XII grossly intact Psych/Mental Status: Normal Affect, Appropriate Vital Signs Temp Pulse Resp BP Pulse Ox 98.0 F 80 18 115/71 94 04/01/18 20:03 04/01/18 20:03 04/01/18 20:03 04/01/18 20:03 04/01/18 20:03 Oxygen Delivery Method Room Air Weight: 59.9 kg Body Mass Index (BMI) 20.7 Intake and Output for Last 24 Hours 03/31/18 04/01/18 04/02/18 23:59 23:59 23:59 Intake Total 485 / 485 460 / 460 260 / 260 Balance 485 / 485 460 / 460 260 / 260 Active Medications Acetaminophen (Tylenol) 1,000 mg PO Q8H PRN PRN PRN Reason: HEADACHE Hydrocodone Bitart/Acetaminophen ([place] 5mg-325mg) 1 tablet PO Q8H PRN PRN Reason: PAIN Last Admin: 04/02/18 06:40 Dose: 1 tablet Alprazolam (Xanax) 0.25 mg PO QHS [facility] Last Admin: 04/01/18 20:37 Dose: 0.25 mg Artificial Tears (Tears Naturale, Artificial Tears) 1 drop OPHTHALMIC TID [facility] Last Admin: 04/02/18 05:49 Dose: 1 drop Bisacodyl (Dulcolax) 10 mg RECTAL X1 PRN PRN Reason: CONSTIPATION Last Admin: 03/30/18 21:16 Dose: 10 mg Cholecalciferol (Vitamin D) 1,000 unit PO DAILY [facility] Last Admin: 04/02/18 07:52 Dose: 1,000 unit Enoxaparin Sodium (Lovenox) 30 mg SC DAILY@0600 [facility] Last Admin: 04/02/18 05:49 Dose: 30 mg Nutritional Formula (Lactose Free) (Ensure Enlive) 120 ml PO 4X/DAY [facility] Last Admin: 04/02/18 07:52 Dose: 120 ml Prednisolone Acetate (Pred Forte Eye Drops (1 Ml)) 1 drop RIGHT EYE BID [facility] Last Admin: 04/02/18 07:52 Dose: 1 drop Senna/Docusate Sodium (Senokot-S, Lissette-Colace) 2 tablet PO BID [facility] Last Admin: 04/02/18 07:52 Dose: 2 tablet Medical Necessity - Tobacco Use Smoking Status: Heavy Smoker (>10/day) Tobacco Use: Cigarettes Assessment/Plan Early status post meningioma resection status post CSF leak and shunt. The patient was previously independent goal of rehab is denominational of prior level functional independence. Plan: - Physical therapy for gait and balance - Occupational Therapy for ADLs - Speech therapy for speech and swallowing as well as cognition - As needed analgesics - Bowel protocol - DVT prophylaxis: Lovenox, SCDs, Kael han - Circadian disruption: Will stimulate during daytime with therapies hopefully this will resolve if not they need to address further by adjusting her Xanax dose or adding other sleep aids. - Donor site - C/D/I keep covered with adaptive dressing, do not place gait belt over the area, or below the breast area, may place belt above the breast. - Head incision - May shampoo hair, do not rub incision site, do not scratch incision site. Pat dy incision area.
--- NOTE | 2018-04-02 09:45 | CT_ITS ---
STUDY: CT BRAIN WITHOUT CONTRAST REASON FOR EXAM: Female, 57 years old. Status post craniotomy for meningioma resection. CSF leak following surgery. RADIATION DOSAGE (If Supplied By Facility): CTDIvol = ( 44.99 ) mGy, DLP = ( 1395.37 ) mGycm TECHNIQUE: Transaxial CT imaging of the brain was performed without administration of intravenous contrast material. Individualized dose optimization techniques were used for this CT. COMPARISON: None. FINDINGS: Normal soft tissue structures. The patient is status post right frontal temporal parietal craniotomy. Postsurgical changes are seen. A right-sided ventriculoperitoneal shunt tube is seen with the tip in the left frontal horn. There is evidence of a 2.4 cm x 3 cm mass in the region of the right sphenoid sinus and right sphenoid wing with evidence of a inhomogeneous appearance of the underlying bony structure demonstrating both hyperostosis and lytic changes. This is in keeping with history of patient's meningioma. There is opacification of the right sphenoid sinus and partial opacification of the right maxillary sinus as well as the ethmoid sinuses and right frontal sinus. There is mild cerebral atrophy with widening of the extra-axial spaces and ventricular dilatation. Focal area of decreased attenuation in the right temporal parietal lobe suggestive of a postoperative encephalomalacia. Normal basal ganglia and thalami. Normal brainstem. Normal cerebellum. There is no intracranial hemorrhage. 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 Electronically Signed: Clifton Taylor MD at 14:02 EDT Tel [phone], Service support ,
[2018-04-02 10:00] VITALS: BP 97/64; PULSE 81; RESP 16; TEMP 36.7; O2SAT 93
--- NOTE | 2018-04-02 15:56 | PCM.PN.HOSP ---
Subjective: Patient's with ongoing confusion, occasional hallucinations and memory impairments as well as insomnia and mild agitation at nights. Low-dose Seroquel added this evening to attempt to improve status. Patient has been complaining of headache ongoing and was administered Tylenol and [place] with some improvement but secondary to ongoing nature CT head was obtained which demonstrated postoperative changes with persistent mass lesion in the right sphenoid sinus and right sphenoid wing with evidence of sinusitis. Per discussion with nursing staff no evidence of fevers, chills, nausea, emesis, abdominal pain, chest pain or dyspnea. Objective: Physical Examination: General: awakens to stimuli, fatigued, less alert currently, laying in bed, recent narcotic w/ sedation secondary to headache, currently NAD. Skin: normal color, turgor, no icterus, cyanosis. HEENT: Post-surgical changes, incision R lateral intact, no evidence of erythema or drainage, MMM, mild facial asymmetry, suspect chronic secondary to serial surgical interventions. Lungs: CTA bilaterally, moderate effort, mild decrease BL bases, no rales, ronchi or wheezing. Heart: Regular rate and rhythm; no gallop, rub audible. Abdomen: soft, NTTP, ND, normal BS. Extremities: no cyanosis, clubbing, or edema. Neurological: awakens to stimuli, fatigued, less alert currently, laying in bed, recent narcotic w/ sedation secondary to headache; cognitive function declined; pupils equally reactive to light and accomodation; cranial nerves II-XII grossly normal, moving all 4 extremities, ataxia ongoing per therapy. Psychiatric: affect appears fatigued, no acute evidence of depressive or anxiety feelings. Vitals/I&O's: Vital Signs Temp Pulse Resp BP Pulse Ox 98.1 F 81 16 97/64 93 04/02/18 10:00 04/02/18 10:00 04/02/18 10:00 04/02/18 10:04/02/18 10:00 Oxygen Delivery Method Room Air Weight: 132 lb 0.91 oz Body Mass Index (BMI) 20.7 Intake and Output for Last 24 Hours 03/31/18 04/01/18 04/02/18 23:59 23:59 23:59 Intake Total 485 / 485 460 / 460 380 / 380 Balance 485 / 485 460 / 460 380 / 380 Current Medications Acetaminophen (Tylenol) 650 mg PO Q8H PRN PRN PRN Reason: HEADACHE Hydrocodone Bitart/Acetaminophen ([place] 5mg-325mg) 1 tablet PO Q6H PRN PRN Reason: PAIN Last Admin: 04/02/18 15:33 Dose: 1 tablet Alprazolam (Xanax) 0.25 mg PO QHS [facility] Last Admin: 04/01/18 20:37 Dose: 0.25 mg Artificial Tears (Tears Naturale, Artificial Tears) 1 drop OPHTHALMIC TID [facility] Last Admin: 04/02/18 14:54 Dose: 1 drop Bisacodyl (Dulcolax) 10 mg RECTAL X1 PRN PRN Reason: CONSTIPATION Last Admin: 03/30/18 21:16 Dose: 10 mg Cholecalciferol (Vitamin D) 1,000 unit PO DAILY [facility] Last Admin: 04/02/18 07:52 Dose: 1,000 unit Enoxaparin Sodium (Lovenox) 30 mg SC DAILY@0600 [facility] Last Admin: 04/02/18 05:49 Dose: 30 mg Nutritional Formula (Lactose Free) (Ensure Enlive) 120 ml PO 4X/DAY [facility] Last Admin: 04/02/18 15:33 Dose: 120 ml Prednisolone Acetate (Pred Forte Eye Drops (1 Ml)) 1 drop RIGHT EYE BID [facility] Last Admin: 04/02/18 07:52 Dose: 1 drop Quetiapine Fumarate (Seroquel) 25 mg PO QHS [facility] Senna/Docusate Sodium (Senokot-S, Lissette-Colace) 2 tablet PO BID [facility] Last Admin: 04/02/18 07:52 Dose: 2 tablet Medical Necessity - Tobacco Use Smoking Status: Heavy Smoker (>10/day) Tobacco Use: Cigarettes Assessment/Plan The patient is a 57 y/o F w/ PMHx: Hypertension, Constipation, Moderate Protein-Calorie Malnutrition, Meningioma who presents to the [facility] Facility on 03/29/18 following recurrent meningioma w/ CSF leak s/p resection and COMMUNICATIONS REPRESENTATIVE shunt placement 03/15/[address] Carolnia. (1) Recurrent Meningioma w/ CSF leak: 03/15/18 s/p resection and COMMUNICATIONS REPRESENTATIVE shunt placement per Dr. Carolnia, transitioned to Acute Rehabilitation for ongoing therapies and close neurological observation, from report now patient's 9th surgery, fall precautions w/ history of unsteady gait/ongoing ataxia, PRN agents for headache w/ follow-up CT Head with post surgical changes, continue wound care for cranial incision w/ mesh-like dressing in place, allowed to shower and wash per surgeon report. q HS seroquel for mild agitation. (2) Hypertension: Noted history, not on regimen, BP normal, continue to trend, defer any regimen addition unless above goal. (3) Anxiety: Maintain on home xanax regimen, q HS seroquel, may benefit from consideration of SSRI/SNRI. (4) Chronic Constipation: Continue bowel regimen. (5) Moderate Protein-calorie Malnutrition: Nutrition consulted, following, supplements per their discretion. (6) DVT Prophylaxis: SCDs, lovenox. Code Visit Inpatient E&M: 19398 Subs Hosp L2
--- NOTE | 2018-04-02 16:03 | PN_ITS ---
Subjective: Patient's with ongoing confusion, occasional hallucinations and memory impairments as well as insomnia and mild agitation at nights. Low-dose Seroquel added this evening to attempt to improve status. Patient has been complaining of headache ongoing and was administered Tylenol and [place] with some improvement but secondary to ongoing nature CT head was obtained which demonstrated postoperative changes with persistent mass lesion in the right sphenoid sinus and right sphenoid wing with evidence of sinusitis. Per discussion with nursing staff no evidence of fevers, chills, nausea, emesis, abdominal pain, chest pain or dyspnea. Objective: Physical Examination: General: awakens to stimuli, fatigued, less alert currently, laying in bed, recent narcotic w/ sedation secondary to headache, currently NAD. Skin: normal color, turgor, no icterus, cyanosis. HEENT: Post-surgical changes, incision R lateral intact, no evidence of erythema or drainage, MMM, mild facial asymmetry, suspect chronic secondary to serial surgical interventions. Lungs: CTA bilaterally, moderate effort, mild decrease BL bases, no rales, ronchi or wheezing. Heart: Regular rate and rhythm; no gallop, rub audible. Abdomen: soft, NTTP, ND, normal BS. Extremities: no cyanosis, clubbing, or edema. Neurological: awakens to stimuli, fatigued, less alert currently, laying in bed , recent narcotic w/ sedation secondary to headache; cognitive function declined ; pupils equally reactive to light and accomodation; cranial nerves II-XII grossly normal, moving all 4 extremities, ataxia ongoing per therapy. Psychiatric: affect appears fatigued, no acute evidence of depressive or anxiety feelings. Vitals/I&O's: Vital Signs Temp Pulse Resp BP Pulse Ox 98.1 F 81 16 97/64 93 04/02/18 10:00 04/02/18 10:00 04/02/18 10:00 04/02/18 10:04/02/18 10:00 Oxygen Delivery Method Room Air Weight: 132 lb 0.91 oz Body Mass Index (BMI) 20.7 Intake and Output for Last 24 Hours 03/31/18 04/01/18 04/02/18 23:59 23:59 23:59 Intake Total 485 / 485 460 / 460 380 / 380 Balance 485 / 485 460 / 460 380 / 380 Current Medications Acetaminophen (Tylenol) 650 mg PO Q8H PRN PRN PRN Reason: HEADACHE Hydrocodone Bitart/Acetaminophen ([place] 5mg-325mg) 1 tablet PO Q6H PRN PRN Reason: PAIN Last Admin: 04/02/18 15:33 Dose: 1 tablet Alprazolam (Xanax) 0.25 mg PO QHS [facility] Last Admin: 04/01/18 20:37 Dose: 0.25 mg Artificial Tears (Tears Naturale, Artificial Tears) 1 drop OPHTHALMIC TID [facility] Last Admin: 04/02/18 14:54 Dose: 1 drop Bisacodyl (Dulcolax) 10 mg RECTAL X1 PRN PRN Reason: CONSTIPATION Last Admin: 03/30/18 21:16 Dose: 10 mg Cholecalciferol (Vitamin D) 1,000 unit PO DAILY [facility] Last Admin: 04/02/18 07:52 Dose: 1,000 unit Enoxaparin Sodium (Lovenox) 30 mg SC DAILY@0600 [facility] Last Admin: 04/02/18 05:49 Dose: 30 mg Nutritional Formula (Lactose Free) (Ensure Enlive) 120 ml PO 4X/DAY [facility] Last Admin: 04/02/18 15:33 Dose: 120 ml Prednisolone Acetate (Pred Forte Eye Drops (1 Ml)) 1 drop RIGHT EYE BID [facility] Last Admin: 04/02/18 07:52 Dose: 1 drop Quetiapine Fumarate (Seroquel) 25 mg PO QHS [facility] Senna/Docusate Sodium (Senokot-S, Lissette-Colace) 2 tablet PO BID [facility] Last Admin: 04/02/18 07:52 Dose: 2 tablet Medical Necessity - Tobacco Use Smoking Status: Heavy Smoker (>10/day) Tobacco Use: Cigarettes Assessment/Plan The patient is a 57 y/o F w/ PMHx: Hypertension, Constipation, Moderate Protein- Calorie Malnutrition, Meningioma who presents to the [facility] Facility on 03/29/18 following recurrent meningioma w/ CSF leak s/p resection and SOFTWARE QA SYSTEM SPECIALIST shunt placement 03/15/[address] Carolina. (1) Recurrent Meningioma w/ CSF leak: 03/15/18 s/p resection and SOFTWARE QA SYSTEM SPECIALIST shunt placement per Dr. Carolina, transitioned to Acute Rehabilitation for ongoing therapies and close neurological observation, from report now patient's 9th surgery, fall precautions w/ history of unsteady gait/ongoing ataxia, PRN agents for headache w/ follow-up CT Head with post surgical changes, continue wound care for cranial incision w/ mesh-like dressing in place, allowed to shower and wash per surgeon report. q HS seroquel for mild agitation. (2) Hypertension: Noted history, not on regimen, BP normal, continue to trend, defer any regimen addition unless above goal. (3) Anxiety: Maintain on home xanax regimen, q HS seroquel, may benefit from consideration of SSRI/SNRI. (4) Chronic Constipation: Continue bowel regimen. (5) Moderate Protein-calorie Malnutrition: Nutrition consulted, following, supplements per their discretion. (6) DVT Prophylaxis: SCDs, lovenox. Code Visit Inpatient E&M: 20944 Subs Hosp L2
[2018-04-02 19:49] VITALS: BP 113/69; PULSE 74; RESP 16; TEMP 37; O2SAT 96
[2018-04-02] MEDS: QUEtiapine 25 MG Tablet PO (20:05)
[2018-04-02] MEDS: ALPRAZolam 0.25 MG Tablet PO (21:57)
[2018-04-03] MEDS: Enoxaparin 30 MG/0.3 ML Syringe SC (05:40)
[2018-04-03 07:56] VITALS: PULSE 101; RESP 16; TEMP 37.1; O2SAT 96
[2018-04-03] MEDS: prednisoLONE eye drops (1 mL) 1 DROP OPTH.BTL 1 DRP RIGHT EYE ×2 (08:01→20:47)
[2018-04-03] MEDS: HYDROcodone Bitartrate/Apap 5/325 Tablet PO (08:04)
--- NOTE | 2018-04-03 10:03 | PCM.PN.NEU ---
Subjective: Patient has ongoing mild confusion, occasional hallucinations and memory impairments. Per nursing staff patient slept well last night no agitation or anxiety noted, started on Seroquel. Tolerating therapy. CTH was negative for acute hemorrhage, did show some sinuitis. She is tolerating regular diet. No issues with GI/. - Physical Exam General: Alert, Cooperative HEENT: Atraumatic, PERRLA, EOMI, Normocephalic Neck: Supple, No JVD, Negative Carotid Bruits Lungs: Clear to auscultation, Normal air movement Cardiovascular: Regular rate, No murmurs Abdomen: Bowel Sounds Present, Soft, Non Tender Extremities: No edema, Capillary Refill Less than 3 Seconds Skin: No rashes, No breakdown Musculoskeletal: No Tenderness to Palpation of Joints or Extremities Neurological: Cranial nerves II-XII grossly intact Psych/Mental Status: Normal Affect, Appropriate Vital Signs Temp Pulse Resp BP Pulse Ox 98.7 F 101 H 16 113/69 96 04/03/18 07:56 04/03/18 07:56 04/03/18 07:56 04/02/18 19:49 04/03/18 07:56 Oxygen Delivery Method Room Air Weight: 59.6 kg Body Mass Index (BMI) 20.7 Intake and Output for Last 24 Hours 04/01/18 04/02/18 04/03/18 23:59 23:59 23:59 Intake Total 460 / 460 380 / 380 Balance 460 / 460 380 / 380 Active Medications Acetaminophen (Tylenol) 650 mg PO Q8H PRN PRN PRN Reason: HEADACHE Hydrocodone Bitart/Acetaminophen ([place] 5mg-325mg) 1 tablet PO Q6H PRN PRN Reason: PAIN Last Admin: 04/03/18 08:04 Dose: 1 tablet Artificial Tears (Tears Naturale, Artificial Tears) 1 drop OPHTHALMIC TID [facility] Last Admin: 04/03/18 05:40 Dose: 1 drop Bisacodyl (Dulcolax) 10 mg RECTAL X1 PRN PRN Reason: CONSTIPATION Last Admin: 03/30/18 21:16 Dose: 10 mg Cholecalciferol (Vitamin D) 1,000 unit PO DAILY [facility] Last Admin: 04/03/18 08:02 Dose: 1,000 unit Enoxaparin Sodium (Lovenox) 30 mg SC DAILY@0600 [facility] Last Admin: 04/03/18 05:40 Dose: 30 mg Nutritional Formula (Lactose Free) (Ensure Enlive) 120 ml PO 4X/DAY [facility] Last Admin: 04/03/18 08:02 Dose: 120 ml Prednisolone Acetate (Pred Forte Eye Drops (1 Ml)) 1 drop RIGHT EYE BID [facility] Last Admin: 04/03/18 08:01 Dose: 1 drop Quetiapine Fumarate (Seroquel) 25 mg PO QHS [facility] Last Admin: 04/02/18 20:05 Dose: 25 mg Senna/Docusate Sodium (Senokot-S, Lissette-Colace) 2 tablet PO BID [facility] Last Admin: 04/03/18 08:02 Dose: Not Given Medical Necessity - Tobacco Use Smoking Status: Heavy Smoker (>10/day) Tobacco Use: Cigarettes Assessment/Plan Early status post meningioma resection status post CSF leak and shunt. The patient was previously independent goal of rehab is buddhism of prior level functional independence. Plan: - Physical therapy for gait and balance - Occupational Therapy for ADLs - Speech therapy for speech and swallowing as well as cognition - As needed analgesics - Bowel protocol - DVT prophylaxis: Lovenox, SCDs, Kael han - Circadian disruption: Will stimulate during daytime with therapies hopefully this will resolve if not they need to address further by adjusting her Xanax dose or adding other sleep aids. - Donor site - C/D/I keep covered with adaptive dressing, do not place gait belt over the area, or below the breast area, may place belt above the breast. - Head incision - May shampoo hair, do not rub incision site, do not scratch incision site. Pat dy incision area.
--- NOTE | 2018-04-03 10:10 | PN.NEURO_ITS ---
Subjective: Patient has ongoing mild confusion, occasional hallucinations and memory impairments. Per nursing staff patient slept well last night no agitation or anxiety noted, started on Seroquel. Tolerating therapy. CTH was negative for acute hemorrhage, did show some sinuitis. She is tolerating regular diet. No issues with GI/. - Physical Exam General: Alert, Cooperative HEENT: Atraumatic, PERRLA, EOMI, Normocephalic Neck: Supple, No JVD, Negative Carotid Bruits Lungs: Clear to auscultation, Normal air movement Cardiovascular: Regular rate, No murmurs Abdomen: Bowel Sounds Present, Soft, Non Tender Extremities: No edema, Capillary Refill Less than 3 Seconds Skin: No rashes, No breakdown Musculoskeletal: No Tenderness to Palpation of Joints or Extremities Neurological: Cranial nerves II-XII grossly intact Psych/Mental Status: Normal Affect, Appropriate Vital Signs Temp Pulse Resp BP Pulse Ox 98.7 F 101 H 16 113/69 96 04/03/18 07:56 04/03/18 07:56 04/03/18 07:56 04/02/18 19:49 04/03/18 07:56 Oxygen Delivery Method Room Air Weight: 59.6 kg Body Mass Index (BMI) 20.7 Intake and Output for Last 24 Hours 04/01/18 04/02/18 04/03/18 23:59 23:59 23:59 Intake Total 460 / 460 380 / 380 Balance 460 / 460 380 / 380 Active Medications Acetaminophen (Tylenol) 650 mg PO Q8H PRN PRN PRN Reason: HEADACHE Hydrocodone Bitart/Acetaminophen ([place] 5mg-325mg) 1 tablet PO Q6H PRN PRN Reason: PAIN Last Admin: 04/03/18 08:04 Dose: 1 tablet Artificial Tears (Tears Naturale, Artificial Tears) 1 drop OPHTHALMIC TID [facility] Last Admin: 04/03/18 05:40 Dose: 1 drop Bisacodyl (Dulcolax) 10 mg RECTAL X1 PRN PRN Reason: CONSTIPATION Last Admin: 03/30/18 21:16 Dose: 10 mg Cholecalciferol (Vitamin D) 1,000 unit PO DAILY [facility] Last Admin: 04/03/18 08:02 Dose: 1,000 unit Enoxaparin Sodium (Lovenox) 30 mg SC DAILY@0600 [facility] Last Admin: 04/03/18 05:40 Dose: 30 mg Nutritional Formula (Lactose Free) (Ensure Enlive) 120 ml PO 4X/DAY [facility] Last Admin: 04/03/18 08:02 Dose: 120 ml Prednisolone Acetate (Pred Forte Eye Drops (1 Ml)) 1 drop RIGHT EYE BID [facility] Last Admin: 04/03/18 08:01 Dose: 1 drop Quetiapine Fumarate (Seroquel) 25 mg PO QHS [facility] Last Admin: 04/02/18 20:05 Dose: 25 mg Senna/Docusate Sodium (Senokot-S, Lissette-Colace) 2 tablet PO BID [facility] Last Admin: 04/03/18 08:02 Dose: Not Given Medical Necessity - Tobacco Use Smoking Status: Heavy Smoker (>10/day) Tobacco Use: Cigarettes Assessment/Plan Early status post meningioma resection status post CSF leak and shunt. The patient was previously independent goal of rehab is orthodoxy of prior level functional independence. Plan: - Physical therapy for gait and balance - Occupational Therapy for ADLs - Speech therapy for speech and swallowing as well as cognition - As needed analgesics - Bowel protocol - DVT prophylaxis: Lovenox, SCDs, Kael han - Circadian disruption: Will stimulate during daytime with therapies hopefully this will resolve if not they need to address further by adjusting her Xanax dose or adding other sleep aids. - Donor site - C/D/I keep covered with adaptive dressing, do not place gait belt over the area, or below the breast area, may place belt above the breast. - Head incision - May shampoo hair, do not rub incision site, do not scratch incision site. Pat dy incision area.
[2018-04-03 11:00] VITALS: BP 140/88
[2018-04-03] MEDS: Senna/Docusate Sodium 1 Tablet 2 TABLET PO (20:48)
[2018-04-03] MEDS: QUEtiapine 25 MG Tablet PO (20:48)
[2018-04-03 20:53] VITALS: BP 104/61; PULSE 78; RESP 16; TEMP 37.1; O2SAT 91
--- NOTE | 2018-04-03 22:54 | NURSING ---
Reviewed and agree with LANDING SIGNAL OFFICER documentation and FIMS charting.
--- NOTE | 2018-04-04 02:09 | NURSING ---
Pt awakened for toileting and exhibiting confusion. Pt cued to stand up to walk to bathroom. Pt stated everyone keeps telling her she is in the hospital but she finds that hard to believe since she is home and there has been some remodeling done. Pt bed alarm and PA in place. Pt reoriented to time of night and urged to try to relax to enable more sleep. Pt states she is checking everything out.
[2018-04-04] MEDS: Enoxaparin 30 MG/0.3 ML Syringe SC (05:13)
[2018-04-04] MEDS: HYDROcodone Bitartrate/Apap 5/325 Tablet PO (05:30)
--- NOTE | 2018-04-04 05:31 | NURSING ---
1 norco tablet provided for 4/10 pain in head.
[2018-04-04 10:00] VITALS: BP 98/64; PULSE 83; RESP 17; TEMP 36.9; O2SAT 92
[2018-04-04] MEDS: Senna/Docusate Sodium 1 Tablet 2 TABLET PO ×2 (10:15→20:16)
[2018-04-04] MEDS: prednisoLONE eye drops (1 mL) 1 DROP OPTH.BTL 1 DRP RIGHT EYE ×2 (10:16→20:16)
--- NOTE | 2018-04-04 10:23 | PCM.PN.NEU ---
Subjective: Staffed in team meeting. Family at bedside. Questions answered. With Physical therapy, She is able to walk about 166 feet with a walker. She was able to walk a flight of stairs with no loss of balance. She does require cues to use her walker at all times, she feels she is able to do a cane, she was trial with a cane and was very unsteady. With Occupational therapy, she is contact guard for toileting and stand by assist for personal care. With Speech therapy, she continues to have issues with attention, memory, and processing information. Speech recommends when she is discharged home that she have 24 hour supervision, due to Safety concerns. With Nursing, the patient is having a lot of confusion, prior to coming to this hospital at [facility] she had a UTI, it is unclear if they treated her for it, a UA, and culture was sent. Her appetite is very poor she is eating less than 25% at each meal, and she is having some depression like symptoms will start a low dose of Remeron. Will re-team her again next . - Physical Exam General: Alert, Oriented x3, Cooperative HEENT: Atraumatic, PERRLA, EOMI, Normocephalic Neck: Supple, No JVD, Negative Carotid Bruits Lungs: Clear to auscultation, Normal air movement Cardiovascular: Regular rate, No murmurs Abdomen: Bowel Sounds Present, Soft, Non Tender Extremities: No edema, Capillary Refill Less than 3 Seconds Skin: No rashes, No breakdown Musculoskeletal: No Tenderness to Palpation of Joints or Extremities Neurological: Cranial nerves II-XII grossly intact Psych/Mental Status: Normal Affect, Appropriate Vital Signs Temp Pulse Resp BP Pulse Ox 98.7 F 78 16 104/61 91 04/03/18 20:53 04/03/18 20:53 04/03/18 20:53 04/03/18 20:53 04/03/18 20:53 Oxygen Delivery Method Room Air Weight: 59.6 kg Body Mass Index (BMI) 20.7 Intake and Output for Last 24 Hours 04/02/18 04/03/18 04/04/18 23:59 23:59 23:59 Intake Total 380 / 380 260 / 260 Balance 380 / 380 260 / 260 Active Medications Acetaminophen (Tylenol) 650 mg PO Q8H PRN PRN PRN Reason: HEADACHE Hydrocodone Bitart/Acetaminophen ([place] 5mg-325mg) 1 tablet PO Q6H PRN PRN Reason: PAIN Last Admin: 04/04/18 05:30 Dose: 1 tablet Artificial Tears (Tears Naturale, Artificial Tears) 1 drop OPHTHALMIC TID [facility] Last Admin: 04/04/18 05:13 Dose: 1 drop Bisacodyl (Dulcolax) 10 mg RECTAL X1 PRN PRN Reason: CONSTIPATION Last Admin: 03/30/18 21:16 Dose: 10 mg Cholecalciferol (Vitamin D) 1,000 unit PO DAILY [facility] Last Admin: 04/04/18 10:16 Dose: 1,000 unit Enoxaparin Sodium (Lovenox) 30 mg SC DAILY@0600 [facility] Last Admin: 04/04/18 05:13 Dose: 30 mg Mirtazapine (Remeron) 15 mg PO QHS [facility] Nutritional Formula (Lactose Free) (Ensure Enlive) 120 ml PO 4X/DAY [facility] Last Admin: 04/04/18 10:18 Dose: 120 ml Prednisolone Acetate (Pred Forte Eye Drops (1 Ml)) 1 drop RIGHT EYE BID [facility] Last Admin: 04/04/18 10:16 Dose: 1 drop Quetiapine Fumarate (Seroquel) 25 mg PO QHS [facility] Last Admin: 04/03/18 20:48 Dose: 25 mg Senna/Docusate Sodium (Senokot-S, Lissette-Colace) 2 tablet PO BID [facility] Last Admin: 04/04/18 10:15 Dose: 2 tablet Medical Necessity - Tobacco Use Smoking Status: Heavy Smoker (>10/day) Tobacco Use: Cigarettes Assessment/Plan Early status post meningioma resection status post CSF leak and shunt. The patient was previously independent goal of rehab is oriental orthodox of prior level functional independence. Plan: - Physical therapy for gait and balance - Occupational Therapy for ADLs - Speech therapy for speech and swallowing as well as cognition - As needed analgesics - Bowel protocol - DVT prophylaxis: Lovenox, SCDs, Kael guille - Circadian disruption: Will stimulate during daytime with therapies hopefully this will resolve if not they need to address further by adjusting her Xanax dose or adding other sleep aids. - Donor site - C/D/I keep covered with adaptive dressing, do not place gait belt over the area, or below the breast area, may place belt above the breast. - Head incision - May shampoo hair, do not rub incision site, do not scratch incision site. Pat dy incision area. - Depression, decreased appetite => Remeron 15mg at HS
--- NOTE | 2018-04-04 11:57 | CASEMGMT ---
Team meeting held. Patient present as well as patient family. No discharge date set at this time. Patient with an insurance update due on 04/05/18, patient and patient aware that continued stay approval is not guaranteed. Team currently recommending continued stay for patient at this time due to cognitive deficits. Patient is being tested for a UTI on this day. Team currently recommending for patient to have 24hr care/supervision at time of discharge due to cognitive deficits. This aids social worker asking family and patient if patient would be able to have 24hr care within the home if continued stay is denied by insurance, family not answering said question and simply looking at this aids social worker. This aids social worker explaining that a facility could be an option for patient but that if [facility] is not approving Inpatient Rehab any more then they may not approve a penitentiary facility and patient would need to pay private pay to stay in the facility, family voicing understanding and planning to discuss further. A telephone call to was made to, Sivakumar (patient son who was not present during team) per patient request. Voicemail left. This aids social worker encouraging Sivakumar to contact this aids social worker back in regards to collaborating on possible discharge plan. Support given. Will continue to follow. Nandini PEÑA, CIVIL CLERK
[2018-04-04 12:00] LABS: Mucous, Urine 0 SEEN /hpf (<or=2+); Red Blood Cells-Urine 0 SEEN /hpf (0-5)
[2018-04-04] MEDS: Acetaminophen 325 MG Tablet 650 MG PO (12:15)
[2018-04-04 12:35] LABS: Color, Urine Yellow (Yellow); Glucose, Dipstick Normal (Normal); Ketone-Dipstick Negative (Negative); Leukocyte Esterase-Dipstick 100 /ul (Negative); Nitrite-Dipstick Negative (Negative); Occult Blood-Urine Negative /ul (Negative); Protein-Dipstick Negative (Negative); Specific Gravity, Urine 1.015 (1.002-1.030); Urine Bilirubin Dipstick Negative (Negative); Urine Clarity Sl. Cloudy (Clear); Urine Urobilinogen Normal (Normal); Urine pH 6.5 (5.0 - 8.0)
[2018-04-04 12:51] LABS: Bacteria 1+ /hpf (None Seen); Squamous Epithelial Cells - UA 0-5 SEEN /hpf (5-10); White Blood Cells 10-25 SEEN /hpf (0-5)
--- NOTE | 2018-04-04 16:42 | CASEMGMT ---
Social Work Telephone call from patient son, Joseluis. Joseluis reporting to be working with family on a plan B in the event that continued stay is denied by insurance. Joseluis educated on facilities in the area both assisted living and extended care facilities. Joseluis reporting to be planning to appeal insurance if continued stay is denied. Support given. Will continue to follow. Nandini PEÑA, FOOD AND BEVERAGE ASSOCIATE
[2018-04-04 18:09] VITALS: BP 98/64; PULSE 83; RESP 17; TEMP 36.9; O2SAT 92
[2018-04-04] MEDS: Cephalexin 500 MG Capsule PO (18:50)
[2018-04-04 20:08] VITALS: BP 91/48; PULSE 85; RESP 16; TEMP 36.8; O2SAT 81
[2018-04-04] MEDS: Mirtazapine 15 MG Tablet PO (20:16)
[2018-04-04] MEDS: QUEtiapine 25 MG Tablet PO (20:16)
[2018-04-05] MEDS: HYDROcodone Bitartrate/Apap 5/325 Tablet PO ×2 (00:18→06:00)
[2018-04-05] MEDS: Enoxaparin 30 MG/0.3 ML Syringe SC (06:00)
[2018-04-05] MEDS: Cephalexin 500 MG Capsule PO (07:48)
[2018-04-05] MEDS: prednisoLONE eye drops (1 mL) 1 DROP OPTH.BTL 1 DRP RIGHT EYE ×2 (07:48→20:13)
[2018-04-05 09:41] VITALS: BP 103/58; PULSE 89; RESP 16; TEMP 36.8; O2SAT 93
--- NOTE | 2018-04-05 11:06 | CASEMGMT ---
Insurance Clinical updates faxed to insurance company. Will await continued stay determination. Auth # [id number] MARIANA Ballard
[2018-04-05 20:06] VITALS: BP 97/55; PULSE 81; RESP 16; TEMP 36.8; O2SAT 92
[2018-04-05] MEDS: Senna/Docusate Sodium 1 Tablet 2 TABLET PO (20:14)
[2018-04-05] MEDS: QUEtiapine 25 MG Tablet PO (20:14)
[2018-04-05] MEDS: Mirtazapine 15 MG Tablet PO (20:14)
[2018-04-05] MEDS: Acetaminophen 325 MG Tablet 650 MG PO (20:16)
[2018-04-06] MEDS: HYDROcodone Bitartrate/Apap 5/325 Tablet PO (00:46)
--- NOTE | 2018-04-06 01:07 | NURSING ---
Bed alarms and PA going off - pt asks how RN got into her house. Wants to go out for a cigarette. Reoriented. Continues to think staff is in her house. Calls staff by name. C/O headache - refusing pain med. States I want to go into a rubber room. Staff reorients frequently. Staff offers to walk with pt in halls. Pt agrees and currently is walking the halls with FILM MAKER. notified - ativan 2mg IM ordered.
[2018-04-06] MEDS: LORazepam 2 MG/ML Syringe IM (01:32)
--- NOTE | 2018-04-06 01:52 | NURSING ---
Now sitting on edge of bed, talking pleasantly with CARDIAC CATH RN and drinking coffee. Ativan given.
[2018-04-06] MEDS: Enoxaparin 30 MG/0.3 ML Syringe SC (06:40)
[2018-04-06] MEDS: prednisoLONE eye drops (1 mL) 1 DROP OPTH.BTL 1 DRP RIGHT EYE ×2 (07:34→22:27)
[2018-04-06 08:10] VITALS: BP 96/60; PULSE 80; RESP 16; TEMP 36.6; O2SAT 96
[2018-04-06 19:41] VITALS: BP 120/58; PULSE 81; RESP 12; TEMP 36.7; O2SAT 94
[2018-04-06] MEDS: QUEtiapine 25 MG Tablet PO (22:27)
[2018-04-06] MEDS: Senna/Docusate Sodium 1 Tablet 2 TABLET PO (22:27)
[2018-04-06] MEDS: Mirtazapine 15 MG Tablet PO (22:27)
[2018-04-07] MEDS: HYDROcodone Bitartrate/Apap 5/325 Tablet PO ×2 (00:42→08:57)
--- NOTE | 2018-04-07 01:21 | NURSING ---
PT ATTEMPTS CONFUSED AND RESTLESS IN BED WITH REPEATED AND FREQUENT ATTEMPTS TO GET OUT OF BED. PT RETURNS LAYS BACK DOWN IN BED AFTER EXPLANATION AND ATTEMPTS TO REORIENT PT TO SURROUNDING. PT HALLUCINATES THAT SHE SEES WOLVES AND MISTAKES ORDINARY OBJECTS FOR OTHER THINGS. PT REMAINS MOSTLY CALM, BUT OCCASIONALLY GETS ANNOYED WITH STAFF.
--- NOTE | 2018-04-07 01:37 | NURSING ---
PT CONTINUING TO TRY TO GET OUT OF BED AND WANTS TO GO UPSTAIRS. PT WALKED IN HALLWAY WITH FIREMAN HELPER AND RETURNS TO BED. CONTINUES TO HAVE HEADACHE PAIN WHICH SHE RATES #5. PT DRIFTS TO R SIDE WHEN SHE WALKS.
--- NOTE | 2018-04-07 02:15 | NURSING ---
DR ASHLEY NOTIFIED THAT PT IS CURRENTLY PAIN FREE AND THAT SHE IS CONFUSED AND CONTINUALLY TRYING TO GET OUT OF BED THIS SHIFT. ORDERS GIVEN.
[2018-04-07] MEDS: LORazepam 1 MG Tablet PO ×3 (02:23→23:51)
[2018-04-07] MEDS: Enoxaparin 30 MG/0.3 ML Syringe SC (08:55)
--- NOTE | 2018-04-07 09:10 | CT_ITS ---
STUDY: CT BRAIN WITHOUT CONTRAST REASON FOR EXAM: Female, 57 years old. CSF leak following surgery. Intracranial meningioma. RADIATION DOSAGE (If Supplied By Facility): CTDIvol = ( 44.99 ) mGy, DLP = ( 812.98 ) mGycm TECHNIQUE: Transaxial CT imaging of the brain was performed without administration of intravenous contrast material. Individualized dose optimization techniques were used for this CT. COMPARISON: None. FINDINGS: Right-sided frontal temporal craniotomy changes noted. Encephalomalacia and gliosis in the right temporal lobe seen. Heterogeneous soft tissue density with osseous destructive changes in the greater and lesser sphenoid wings identified. Soft tissue density extends along the pterygopalatine fossa and the retromaxillary region as well as along the right aspect of the nasopharynx as well as in the sella with suprasellar extension. Involvement of the right orbit also seen with sclerotic appearance of the adjacent bony structures. There is likely invasion of the right cavernous sinus however this is not well determined on the current examination. There is likely narrowing of the right optic canal A right-sided frontal approach ventriculostomy shunt catheter noted traversing through the frontal horn of the left lateral ventricle with its tip in the left basal ganglia. The ventricular system appears decompressed. No discrete mass in the posterior fossa. Opacification of the bilateral mastoid air cells. Mucosal thickening of the ethmoid vessels also seen. IMPRESSION: Status post right-sided ventriculostomy shunt catheter placement with its tip traversing through the frontal horn of the left lateral ventricle and terminating in the left basal ganglia. Decompressed appearance of the ventricular system. Postsurgical changes in the right frontal lobe with a large area of encephalomalacia and gliosis. Heterogeneous density mass in the right parasellar region with suprasellar extension as well as involvement of the sella and the greater as well as the lesser sphenoid wings with extension into the nasopharynx and the pterygopalatine fossa as well as in the right orbit. Involvement of the right-sided masseter muscles with osseous destructive changes of the pterygoid plates and the maxillary sinus can as well as the right middle cranial fossa. There is consider MRI exam for better assessment Electronically Signed: Kristofer Bocanegra, at 10:47 EDT Tel , Service support , CT/Brain/Head without Contrast
--- NOTE | 2018-04-07 09:27 | NURSING ---
Dr. Kim aware of increased confusion and agitation noted by staff report and new orders received. Patient currently 1:1 provided by nursing due to increased confusion and at this time patient refused to go for her CT scan and became agitated with staff. Prn ativan given. 1:1 has been ineffective and reorientation.
[2018-04-07 09:53] LABS: Hematocrit 37.2 % (37-47); Mean Corp Hgb Conc 32.3 g/gl (32-36); Mean Corpuscular Hgb 31.7 pg (27.0-32.0); Mean Corpuscular Volume 98.2 fL (81-99); Mean Platelet Vol. 9.2 fl (6.2-12.0); Platelet Count 413 K/mm3 (150-450); RBC Distribution Width CV 13.8 % (11.6-14.6); RBC Distribution Width SD 48.8 fl (35.1-43.9); Red Blood Count 3.79 M/mm3 (4.2-5.4); White Blood Count 5.5 K/mm3 (4.4-11.0)
[2018-04-07 09:54] LABS: Scan Indicated on CBC? Y/N NO
[2018-04-07 10:00] VITALS: BP 100/50; PULSE 83; RESP 17; TEMP 36.7; O2SAT 96
--- NOTE | 2018-04-07 10:09 | NURSING ---
Patient given much 1:1 and redirection, continues to report she is leaving and going to smoke a cigarette and going outside. Patient agreed at this time to go get CT scan done per Dr. kenyon. Off floor with LIFE UNDERWRITER.
[2018-04-07 10:12] LABS: Anion Gap 7 (5-15); BUN 9 mg/dL (7-18); Calcium,Total 9.1 mg/dL (8.5-10.1); Chloride 107 mmol/L (98-107); Creatinine, Serum 0.56 mg/dL (0.55-1.02); EST Glomerular Filtration Rate 118 mL/min (>60); Est Glom Filt Rate - Afr Amer 142 mL/min (>60); Estimated Creatinine Clearance 103.03 ml/min; Glucose 99 mg/dL (74-106); Potassium 3.7 mmol/L (3.5-5.1); Sodium Level 142 mmol/L (136-145)
[2018-04-07] MEDS: prednisoLONE eye drops (1 mL) 1 DROP OPTH.BTL 1 DRP RIGHT EYE ×2 (10:57→21:19)
[2018-04-07] MEDS: QUEtiapine 25 MG Tablet PO (12:13)
--- NOTE | 2018-04-07 15:57 | PN_ITS ---
Subjective: Patient seen and examined. Resting comfortably in bed. Nursing reports patient has had ongoing confusion/agitation requiring a sitter at bedside for safety. Patient denies current complaints. Denies headache. Denies pain. - Physical Exam General: No apparent distress, - - Drowsy HEENT: - - Right eye chronic swelling, right lateral scalp incision intact. Blindness right eye. Oral: Moist Mucosa Neck: Supple, No JVD, Negative Carotid Bruits Lungs: Clear to auscultation, Diminished Cardiovascular: Regular rate, Regular Rhythm, Normal S1, Normal S2, No murmurs Abdomen: Bowel Sounds Present, Soft, Non Tender, Non-Distended Extremities: No clubbing, No cyanosis, No edema, Capillary Refill Less than 3 Seconds Skin: No rashes, No breakdown, - - Right lateral scalp postoperative incision intact without redness, drainage. Musculoskeletal: No Tenderness to Palpation of Joints or Extremities Neurological: Cranial nerves II-XII grossly intact, Motor Exam 5/5 strength throughout Psych/Mental Status: Appropriate Vital Signs Temp Pulse Resp BP Pulse Ox 98.0 F 83 17 100/50 L 96 04/07/18 10:00 04/07/18 10:00 04/07/18 10:00 04/07/18 10:04/07/18 10:00 Oxygen Delivery Method Room Air Weight: 59.6 kg Body Mass Index (BMI) 20.7 Intake and Output for Last 24 Hours 04/05/18 04/06/18 04/07/18 23:59 23:59 23:59 Intake Total 200 / 200 200 / 200 120 / 120 Balance 200 / 200 200 / 200 120 / 120 Microbiology Past 72 Hours 04/04/18 11:50 Urine Culture - Final Urine, Clean Catch Mixed Gram Positive Organisms Laboratory Tests Past 24 Hrs 04/07/18 04/07/18 09:30 09:30 WBC 5.5 RBC 3.79 L Hgb 12.0 Hct 37.2 MCV 98.2 MCH 31.7 MCHC 32.3 RDW 13.8 RDW Differential 48.8 H Plt Count 413 MPV 9.2 Sodium 142 Potassium 3.7 Chloride 107 Carbon Dioxide 28.0 Anion Gap 7 BUN 9 Creatinine 0.56 Estim Creat Clear Calc 103.03 Est GFR (MDRD) Af Amer 142 Est GFR (MDRD) Non-Af 118 BUN/Creatinine Ratio 16.0 Glucose 99 Calcium 9.1 Medical Necessity - Tobacco Use Smoking Status: Heavy Smoker (>10/day) Tobacco Use: Cigarettes Assessment/Plan Patient is a 57-year-old female admitted to rehab unit 03/29/2018 status post resection of right sphenoid wing meningioma complicated by CSF leak requiring multiple surgical repairs including BLANKET INSPECTOR shunt placement 03/15/[address] Carolina. She has a past medical history of hypertension, moderate protein calorie malnutrition, chronic constipation, recurrent meningioma. 1. Physical debility, cognitive impairment due to recurrent meningioma with CSF leak-status post meningioma with BLANKET INSPECTOR shunt placement 03/15/[address] Carolina. Patient is reported to have a history of 9 brain surgeries regarding recurrent meningiomas. PT/OT. PRN pain regimen for intermittent headache. Fall precautions given ongoing ataxia. Seroquel recently added for mild agitation. No significant improvement thus far. Sitter at bedside for safety. Repeat CT of brain this morning showed status post right-sided ventriculostomy shunt catheter placement with its tip tray worsening through the frontal horn of the left lateral ventricle and terminating in the left basal ganglia. A decompressed appearance of the ventricle system. Postsurgical changes in the right frontal lobe with a large area of encephalomalacia and gliosis. Heterogeneous density mass in the right parasellar region with suprasellar extension as well as involvement of the sella and the greater as well as the lesser sphenoid wings with extension into the nasal pharynx and the pterygopalatine fossa as well as in the right orbit. Involvement of the right sided massive tear muscles with osseous destructive changes of the pterygoid plates and the maxillary sinus can as well as the right middle cranial fossa. Urinalysis unremarkable. No evidence of infectious etiology for her ongoing confusion. 2. Hypertension-stable, not on current regimen. Continue to monitor. 3. Chronic constipation-continue current bowel regimen. 4. Moderate protein calorie malnutrition-nutrition consulted. Continue supplementations. 5. Anxiety/depression-continue home Xanax, remeron regimen. Continue Seroquel in a.m. and nightly. DVT prophylaxis-SCDs, Lovenox subcu. This patient was seen by CHRISTI Okeefe under the supervision of Dr. Odell.
[2018-04-07 20:50] VITALS: BP 86/62; PULSE 95; RESP 16; TEMP 36.6; O2SAT 95
[2018-04-07] MEDS: Acetaminophen 325 MG Tablet 650 MG PO (20:56)
[2018-04-07] MEDS: QUEtiapine 25 MG Tablet 50 MG PO (21:18)
[2018-04-07] MEDS: Mirtazapine 15 MG Tablet PO (21:18)
--- NOTE | 2018-04-07 23:56 | NURSING ---
PT GETTING HAS TRIED TO GET OUT OF BED WITHOUT ASKING FOR HELP 5-6 TIMES AND IS BECOMING INCREASINGLY ANNOYED AND IRRITATED WITH CHIEF CLINICAL DIETITIAN WHO IS OBSERVING PT CONTINUOUSLY. PT IS HALLUCINATING AND CONFUSED. PT HAS BEEN PROVIDED WITH TOILETING OPPORTUNITIES, PAIN MEDICATION, REPOSITIONING AND ORAL FLUIDS. MEDICATED FOR AGITATION.
--- NOTE | 2018-04-08 01:59 | NURSING ---
REVIEWED AND AGREE WITH PATIENT ACCOUNT REPRESENTATIVE'S FIM AND HANDOFF CHARTING.
[2018-04-08] MEDS: LORazepam 1 MG Tablet PO (04:31)
--- NOTE | 2018-04-08 04:34 | NURSING ---
PT AGITATED, RESTLESS AND HALLUCINATING AND REPEATEDLY COAXED BACK TO BED SHE ATTEMPTS TO GET OUT. PT HAS BEEN WALKED IN [place] 3 TIMES WITH SOME RELIEF FROM AGITATION PT BELIEVES SHE IS WALKING HOME AND RETURNING TO HER BED. PT IMAGINES SHE SEES MULTIPLE DIFFERENT ANIMALS IN ROOM DURING THIS SHIFT. MEDICATED FOR AGITATION.
[2018-04-08] MEDS: Enoxaparin 30 MG/0.3 ML Syringe SC (05:12)
[2018-04-08 07:19] VITALS: BP 95/65; PULSE 63; RESP 18; TEMP 36.6; O2SAT 98
[2018-04-08] MEDS: HYDROcodone Bitartrate/Apap 5/325 Tablet PO (07:34)
[2018-04-08] MEDS: prednisoLONE eye drops (1 mL) 1 DROP OPTH.BTL 1 DRP RIGHT EYE ×2 (07:34→20:43)
[2018-04-08] MEDS: QUEtiapine 25 MG Tablet PO (08:16)
--- NOTE | 2018-04-08 13:09 | PN.NEURO_ITS ---
Subjective: Patient is less agitated today, she still has confusion, which has improved slightly since starting the additional dose of Seroquel in the morning. She was able to do therapy today, however the therapist had to explained things very slowly and she still had some difficulty following instructions. Repeat CT was unchanged from the one done earlier in the week, Will continue to monitor. - Physical Exam General: Alert, Oriented x3, Cooperative HEENT: Atraumatic, PERRLA, EOMI, Normocephalic Neck: Supple, No JVD, Negative Carotid Bruits Lungs: Clear to auscultation, Normal air movement Cardiovascular: Regular rate, No murmurs Abdomen: Bowel Sounds Present, Soft, Non Tender Extremities: No edema, Capillary Refill Less than 3 Seconds Skin: No rashes, No breakdown Musculoskeletal: No Tenderness to Palpation of Joints or Extremities Neurological: Cranial nerves II-XII grossly intact Psych/Mental Status: Normal Affect, Appropriate Vital Signs Temp Pulse Resp BP Pulse Ox 97.8 F 63 18 95/65 98 04/08/18 07:19 04/08/18 07:19 04/08/18 07:19 04/08/18 07:19 04/08/18 07:19 Oxygen Delivery Method Room Air Weight: 59.6 kg Body Mass Index (BMI) 20.7 Intake and Output for Last 24 Hours 04/06/18 04/07/18 04/08/18 23:59 23:59 23:59 Intake Total 200 / 200 120 / 120 Balance 200 / 200 120 / 120 Microbiology Past 72 Hours 04/04/18 11:50 Urine Culture - Final Urine, Clean Catch Mixed Gram Positive Organisms Active Medications Acetaminophen (Tylenol) 650 mg PO Q8H PRN PRN PRN Reason: HEADACHE Last Admin: 04/07/18 20:56 Dose: 650 mg Hydrocodone Bitart/Acetaminophen ([place] 5mg-325mg) 1 tablet PO Q6H PRN PRN Reason: PAIN Last Admin: 04/08/18 07:34 Dose: 1 tablet Artificial Tears (Tears Naturale, Artificial Tears) 1 drop OPHTHALMIC TID BRO Last Admin: 04/08/18 05:11 Dose: 1 drop Bisacodyl (Dulcolax) 10 mg RECTAL X1 PRN PRN Reason: CONSTIPATION Last Admin: 03/30/18 21:16 Dose: 10 mg Cholecalciferol (Vitamin D) 1,000 unit PO DAILY BRO Last Admin: 04/08/18 07:34 Dose: 1,000 unit Enoxaparin Sodium (Lovenox) 30 mg SC DAILY@0600 [facility] Last Admin: 04/08/18 05:12 Dose: 30 mg Mirtazapine (Remeron) 15 mg PO QHS [facility] Last Admin: 04/07/18 21:18 Dose: 15 mg Nutritional Formula (Lactose Free) (Ensure Enlive) 120 ml PO 4X/DAY [facility] Last Admin: 04/08/18 07:34 Dose: 120 ml Prednisolone Acetate (Pred Forte Eye Drops (1 Ml)) 1 drop RIGHT EYE BID [facility] Last Admin: 04/08/18 07:34 Dose: 1 drop Quetiapine Fumarate (Seroquel) 50 mg PO QHS [facility] Last Admin: 04/07/18 21:18 Dose: 50 mg Quetiapine Fumarate (Seroquel) 25 mg PO QAM [facility] Last Admin: 04/08/18 08:16 Dose: 25 mg Senna/Docusate Sodium (Senokot-S, Lissette-Colace) 2 tablet PO BID [facility] Last Admin: 04/08/18 07:35 Dose: Not Given Medical Necessity - Tobacco Use Smoking Status: Heavy Smoker (>10/day) Tobacco Use: Cigarettes Assessment/Plan Early status post meningioma resection status post CSF leak and shunt. The patient was previously independent goal of rehab is buddhism of prior level functional independence. Plan: - Physical therapy for gait and balance - Occupational Therapy for ADLs - Speech therapy for speech and swallowing as well as cognition - As needed analgesics - Bowel protocol - DVT prophylaxis: Lovenox, SCDs, Kael han - Circadian disruption: Will stimulate during daytime with therapies hopefully this will resolve if not they need to address further by adjusting her Xanax dose or adding other sleep aids. - Donor site - C/D/I keep covered with adaptive dressing, do not place gait belt over the area, or below the breast area, may place belt above the breast. - Head incision - May shampoo hair, do not rub incision site, do not scratch incision site. Pat dy incision area. - Depression, decreased appetite => Remeron 15mg at HS - Seroquel 25mg in AM, and 50mg PM
--- NOTE | 2018-04-08 15:58 | CHAPLAIN ---
Type of Pastoral Visit _x__ Initial Visit ___ Follow-up Visit ___ On-call Visit ___ General Patient Visit ___ Spiritual Assessment ___ Family Conference ___ Bereavement ___ Rapid Response ___ Code Blue ___ Other (describe below) Pastoral Care Referral From ___ Patient ___ Family _x__ Nurse ___ Physician ___ Director Systems ___ Arcade Technician ___ Other (describe below) Sacrament/Intervention _x__ Active listening ___ Anointing ___ Hindu ___ Bereavement ___ Communion ___ Megan exploration ___ ___ Life review _x__ Prayer ___ Reconciliation ___ Sacrament of Sick _x__ Supportive presence ___ Wedding ___ Other (describe below) Pastoral Comments RN asked this tablet tester to visit with patient for a brief time; [facility] was with patient at this time but she excused herself while I talked with pt; pt is not showing awareness of where she is at this time; pt conversed but had difficulty due to poor hearing and eyesight; [place] family around; pt said yes to prayer but after the prayer seemed 'confused' as to what I had just done or said
[2018-04-08] MEDS: QUEtiapine 25 MG Tablet 50 MG PO (20:43)
[2018-04-08] MEDS: Senna/Docusate Sodium 1 Tablet 2 TABLET PO (20:44)
[2018-04-08] MEDS: Mirtazapine 15 MG Tablet PO (20:44)
[2018-04-08 20:45] VITALS: BP 93/62; PULSE 83; RESP 16; TEMP 36.8; O2SAT 93
--- NOTE | 2018-04-09 02:27 | NURSING ---
Reviewed and agree with CALL CENTER RECEPTIONIST documentation and FIMS charting
[2018-04-09] MEDS: Enoxaparin 30 MG/0.3 ML Syringe SC (06:30)
[2018-04-09] MEDS: Senna/Docusate Sodium 1 Tablet 2 TABLET PO ×2 (07:30→19:34)
[2018-04-09] MEDS: HYDROcodone Bitartrate/Apap 5/325 Tablet PO (07:30)
[2018-04-09] MEDS: QUEtiapine 25 MG Tablet PO (07:31)
[2018-04-09] MEDS: prednisoLONE eye drops (1 mL) 1 DROP OPTH.BTL 1 DRP RIGHT EYE ×2 (07:31→19:35)
[2018-04-09 08:30] VITALS: BP 100/65; PULSE 90; RESP 18; TEMP 36.9; O2SAT 95
--- NOTE | 2018-04-09 13:02 | PCM.PN.NEU ---
Subjective: Patient's confusion has improved, she is more oriented and alert. She is calmer today and better able to follow commands and instructions. Overall she is doing better today. - Physical Exam General: Alert, Oriented x3, Cooperative HEENT: Atraumatic, PERRLA, EOMI, Normocephalic Neck: Supple, No JVD, Negative Carotid Bruits Lungs: Clear to auscultation, Normal air movement Cardiovascular: Regular rate, No murmurs Abdomen: Bowel Sounds Present, Soft, Non Tender Extremities: No edema, Capillary Refill Less than 3 Seconds Skin: No rashes, No breakdown Musculoskeletal: No Tenderness to Palpation of Joints or Extremities Neurological: Cranial nerves II-XII grossly intact Psych/Mental Status: Normal Affect, Appropriate, Alert and oriented to time, place, person, mood and affect Vital Signs Temp Pulse Resp BP Pulse Ox 98.4 F 90 18 100/65 95 04/09/18 08:30 04/09/18 08:30 04/09/18 08:30 04/09/18 08:30 04/09/18 08:30 Oxygen Delivery Method Room Air Weight: 59.6 kg Body Mass Index (BMI) 20.7 Intake and Output for Last 24 Hours 04/07/18 04/08/18 04/09/18 23:59 23:59 23:59 Intake Total 120 / 120 240 / 240 Balance 120 / 120 240 / 240 Microbiology Past 72 Hours 04/04/18 11:50 Urine Culture - Final Urine, Clean Catch Mixed Gram Positive Organisms Active Medications Acetaminophen (Tylenol) 650 mg PO Q8H PRN PRN PRN Reason: HEADACHE Last Admin: 04/07/18 20:56 Dose: 650 mg Hydrocodone Bitart/Acetaminophen ([place] 5mg-325mg) 1 tablet PO Q6H PRN PRN Reason: PAIN Last Admin: 04/09/18 07:30 Dose: 1 tablet Artificial Tears (Tears Naturale, Artificial Tears) 1 drop OPHTHALMIC TID BRO Last Admin: 04/09/18 06:30 Dose: 1 drop Bisacodyl (Dulcolax) 10 mg RECTAL X1 PRN PRN Reason: CONSTIPATION Last Admin: 03/30/18 21:16 Dose: 10 mg Cholecalciferol (Vitamin D) 1,000 unit PO DAILY BRO Last Admin: 04/09/18 07:31 Dose: 1,000 unit Enoxaparin Sodium (Lovenox) 30 mg SC DAILY@0600 [facility] Last Admin: 04/09/18 06:30 Dose: 30 mg Mirtazapine (Remeron) 15 mg PO QHS [facility] Last Admin: 04/08/18 20:44 Dose: 15 mg Nutritional Formula (Lactose Free) (Ensure Enlive) 120 ml PO 4X/DAY [facility] Last Admin: 04/09/18 07:32 Dose: 120 ml Prednisolone Acetate (Pred Forte Eye Drops (1 Ml)) 1 drop RIGHT EYE BID [facility] Last Admin: 04/09/18 07:31 Dose: 1 drop Quetiapine Fumarate (Seroquel) 25 mg PO DAILY@0800 [facility] Last Admin: 04/09/18 07:31 Dose: 25 mg Quetiapine Fumarate (Seroquel) 50 mg PO DAILY@1999 [facility] Last Admin: 04/08/18 20:43 Dose: 50 mg Senna/Docusate Sodium (Senokot-S, Lissette-Colace) 2 tablet PO BID [facility] Last Admin: 04/09/18 07:30 Dose: 2 tablet Medical Necessity - Tobacco Use Smoking Status: Heavy Smoker (>10/day) Tobacco Use: Cigarettes Assessment/Plan Early status post meningioma resection status post CSF leak and shunt. The patient was previously independent goal of rehab is bahai of prior level functional independence. Plan: - Physical therapy for gait and balance - Occupational Therapy for ADLs - Speech therapy for speech and swallowing as well as cognition - As needed analgesics - Bowel protocol - DVT prophylaxis: Lovenox, SCDs, Kael hoses - Circadian disruption: Will stimulate during daytime with therapies hopefully this will resolve if not they need to address further by adjusting her Xanax dose or adding other sleep aids. - Donor site - C/D/I keep covered with adaptive dressing, do not place gait belt over the area, or below the breast area, may place belt above the breast. - Head incision - May shampoo hair, do not rub incision site, do not scratch incision site. Pat dy incision area. - Depression, decreased appetite => Remeron 15mg at HS - Seroquel 25mg in AM, and 50mg PM
--- NOTE | 2018-04-09 13:08 | PN.NEURO_ITS ---
Subjective: Patient's confusion has improved, she is more oriented and alert. She is calmer today and better able to follow commands and instructions. Overall she is doing better today. - Physical Exam General: Alert, Oriented x3, Cooperative HEENT: Atraumatic, PERRLA, EOMI, Normocephalic Neck: Supple, No JVD, Negative Carotid Bruits Lungs: Clear to auscultation, Normal air movement Cardiovascular: Regular rate, No murmurs Abdomen: Bowel Sounds Present, Soft, Non Tender Extremities: No edema, Capillary Refill Less than 3 Seconds Skin: No rashes, No breakdown Musculoskeletal: No Tenderness to Palpation of Joints or Extremities Neurological: Cranial nerves II-XII grossly intact Psych/Mental Status: Normal Affect, Appropriate, Alert and oriented to time, place, person, mood and affect Vital Signs Temp Pulse Resp BP Pulse Ox 98.4 F 90 18 100/65 95 04/09/18 08:30 04/09/18 08:30 04/09/18 08:30 04/09/18 08:30 04/09/18 08:30 Oxygen Delivery Method Room Air Weight: 59.6 kg Body Mass Index (BMI) 20.7 Intake and Output for Last 24 Hours 04/07/18 04/08/18 04/09/18 23:59 23:59 23:59 Intake Total 120 / 120 240 / 240 Balance 120 / 120 240 / 240 Microbiology Past 72 Hours 04/04/18 11:50 Urine Culture - Final Urine, Clean Catch Mixed Gram Positive Organisms Active Medications Acetaminophen (Tylenol) 650 mg PO Q8H PRN PRN PRN Reason: HEADACHE Last Admin: 04/07/18 20:56 Dose: 650 mg Hydrocodone Bitart/Acetaminophen ([place] 5mg-325mg) 1 tablet PO Q6H PRN PRN Reason: PAIN Last Admin: 04/09/18 07:30 Dose: 1 tablet Artificial Tears (Tears Naturale, Artificial Tears) 1 drop OPHTHALMIC TID BRO Last Admin: 04/09/18 06:30 Dose: 1 drop Bisacodyl (Dulcolax) 10 mg RECTAL X1 PRN PRN Reason: CONSTIPATION Last Admin: 03/30/18 21:16 Dose: 10 mg Cholecalciferol (Vitamin D) 1,000 unit PO DAILY BRO Last Admin: 04/09/18 07:31 Dose: 1,000 unit Enoxaparin Sodium (Lovenox) 30 mg SC DAILY@0600 [facility] Last Admin: 04/09/18 06:30 Dose: 30 mg Mirtazapine (Remeron) 15 mg PO QHS [facility] Last Admin: 04/08/18 20:44 Dose: 15 mg Nutritional Formula (Lactose Free) (Ensure Enlive) 120 ml PO 4X/DAY [facility] Last Admin: 04/09/18 07:32 Dose: 120 ml Prednisolone Acetate (Pred Forte Eye Drops (1 Ml)) 1 drop RIGHT EYE BID [facility] Last Admin: 04/09/18 07:31 Dose: 1 drop Quetiapine Fumarate (Seroquel) 25 mg PO DAILY@0800 [facility] Last Admin: 04/09/18 07:31 Dose: 25 mg Quetiapine Fumarate (Seroquel) 50 mg PO DAILY@1999 [facility] Last Admin: 04/08/18 20:43 Dose: 50 mg Senna/Docusate Sodium (Senokot-S, Lissette-Colace) 2 tablet PO BID [facility] Last Admin: 04/09/18 07:30 Dose: 2 tablet Medical Necessity - Tobacco Use Smoking Status: Heavy Smoker (>10/day) Tobacco Use: Cigarettes Assessment/Plan Early status post meningioma resection status post CSF leak and shunt. The patient was previously independent goal of rehab is jew of prior level functional independence. Plan: - Physical therapy for gait and balance - Occupational Therapy for ADLs - Speech therapy for speech and swallowing as well as cognition - As needed analgesics - Bowel protocol - DVT prophylaxis: Lovenox, SCDs, Kael hoses - Circadian disruption: Will stimulate during daytime with therapies hopefully this will resolve if not they need to address further by adjusting her Xanax dose or adding other sleep aids. - Donor site - C/D/I keep covered with adaptive dressing, do not place gait belt over the area, or below the breast area, may place belt above the breast. - Head incision - May shampoo hair, do not rub incision site, do not scratch incision site. Pat dy incision area. - Depression, decreased appetite => Remeron 15mg at HS - Seroquel 25mg in AM, and 50mg PM
[2018-04-09 19:30] VITALS: BP 88/63; PULSE 97; RESP 18; TEMP 36.8; O2SAT 93
[2018-04-09] MEDS: Mirtazapine 15 MG Tablet PO (19:34)
[2018-04-09] MEDS: QUEtiapine 25 MG Tablet 50 MG PO (19:35)
[2018-04-10] MEDS: Enoxaparin 30 MG/0.3 ML Syringe SC (06:47)
[2018-04-10 07:43] VITALS: BP 97/62; PULSE 82; RESP 16; TEMP 36.2; O2SAT 96
[2018-04-10] MEDS: QUEtiapine 25 MG Tablet PO (07:45)
[2018-04-10] MEDS: prednisoLONE eye drops (1 mL) 1 DROP OPTH.BTL 1 DRP RIGHT EYE ×2 (07:45→20:34)
[2018-04-10] MEDS: Senna/Docusate Sodium 1 Tablet 2 TABLET PO ×2 (07:45→20:34)
--- NOTE | 2018-04-10 10:04 | PCM.PN.NEU ---
Subjective: Patient did not require a sitter during the night, or this morning. She is Tolerating therapy, and a regular diet. No issues with GI/. - Physical Exam General: Alert, Cooperative, No apparent distress HEENT: Atraumatic, PERRLA, EOMI, Normocephalic Neck: Supple, No JVD, Negative Carotid Bruits Lungs: Clear to auscultation, Normal air movement Cardiovascular: Regular rate, No murmurs Abdomen: Bowel Sounds Present, Soft, Non Tender Extremities: No edema, Capillary Refill Less than 3 Seconds Skin: No rashes, No breakdown Musculoskeletal: No Tenderness to Palpation of Joints or Extremities Neurological: Cranial nerves II-XII grossly intact Psych/Mental Status: Normal Affect, Appropriate Vital Signs Temp Pulse Resp BP Pulse Ox 97.2 F L 82 16 97/62 96 04/10/18 07:43 04/10/18 07:43 04/10/18 07:43 04/10/18 07:43 04/10/18 07:43 Oxygen Delivery Method Room Air Weight: 60 kg Body Mass Index (BMI) 20.7 Intake and Output for Last 24 Hours 04/08/18 04/09/18 04/10/18 23:59 23:59 23:59 Intake Total 360 / 360 Balance 360 / 360 Active Medications Acetaminophen (Tylenol) 650 mg PO Q8H PRN PRN PRN Reason: HEADACHE Last Admin: 04/07/18 20:56 Dose: 650 mg Hydrocodone Bitart/Acetaminophen ([place] 5mg-325mg) 1 tablet PO Q6H PRN PRN Reason: PAIN Last Admin: 04/09/18 07:30 Dose: 1 tablet Artificial Tears (Tears Naturale, Artificial Tears) 1 drop OPHTHALMIC TID [facility] Last Admin: 04/10/18 06:47 Dose: 1 drop Bisacodyl (Dulcolax) 10 mg RECTAL X1 PRN PRN Reason: CONSTIPATION Last Admin: 03/30/18 21:16 Dose: 10 mg Cholecalciferol (Vitamin D) 1,000 unit PO DAILY [facility] Last Admin: 04/10/18 07:45 Dose: 1,000 unit Enoxaparin Sodium (Lovenox) 30 mg SC DAILY@0600 [facility] Last Admin: 04/10/18 06:47 Dose: 30 mg Mirtazapine (Remeron) 15 mg PO QHS [facility] Last Admin: 04/09/18 19:34 Dose: 15 mg Nutritional Formula (Lactose Free) (Ensure Enlive) 120 ml PO 4X/DAY [facility] Last Admin: 04/10/18 07:45 Dose: 120 ml Prednisolone Acetate (Pred Forte Eye Drops (1 Ml)) 1 drop RIGHT EYE BID [facility] Last Admin: 04/10/18 07:45 Dose: 1 drop Quetiapine Fumarate (Seroquel) 25 mg PO DAILY@0800 [facility] Last Admin: 04/10/18 07:45 Dose: 25 mg Quetiapine Fumarate (Seroquel) 50 mg PO DAILY@2000 [facility] Last Admin: 04/09/18 19:35 Dose: 50 mg Senna/Docusate Sodium (Senokot-S, Lissette-Colace) 2 tablet PO BID [facility] Last Admin: 04/10/18 07:45 Dose: 2 tablet Medical Necessity - Tobacco Use Smoking Status: Heavy Smoker (>10/day) Tobacco Use: Cigarettes Assessment/Plan Early status post meningioma resection status post CSF leak and shunt. The patient was previously independent goal of rehab is synagogue of prior level functional independence. Plan: - Physical therapy for gait and balance - Occupational Therapy for ADLs - Speech therapy for speech and swallowing as well as cognition - As needed analgesics - Bowel protocol - DVT prophylaxis: Lovenox, SCDs, Kael han - Circadian disruption: Will stimulate during daytime with therapies hopefully this will resolve if not they need to address further by adjusting her Xanax dose or adding other sleep aids. - Donor site - C/D/I keep covered with adaptive dressing, do not place gait belt over the area, or below the breast area, may place belt above the breast. - Head incision - May shampoo hair, do not rub incision site, do not scratch incision site. Pat dy incision area. - Depression, decreased appetite => Remeron 15mg at HS - Seroquel 25mg in AM, and 50mg PM
--- NOTE | 2018-04-10 10:07 | PN.NEURO_ITS ---
Subjective: Patient did not require a sitter during the night, or this morning. She is Tolerating therapy, and a regular diet. No issues with GI/. - Physical Exam General: Alert, Cooperative, No apparent distress HEENT: Atraumatic, PERRLA, EOMI, Normocephalic Neck: Supple, No JVD, Negative Carotid Bruits Lungs: Clear to auscultation, Normal air movement Cardiovascular: Regular rate, No murmurs Abdomen: Bowel Sounds Present, Soft, Non Tender Extremities: No edema, Capillary Refill Less than 3 Seconds Skin: No rashes, No breakdown Musculoskeletal: No Tenderness to Palpation of Joints or Extremities Neurological: Cranial nerves II-XII grossly intact Psych/Mental Status: Normal Affect, Appropriate Vital Signs Temp Pulse Resp BP Pulse Ox 97.2 F L 82 16 97/62 96 04/10/18 07:43 04/10/18 07:43 04/10/18 07:43 04/10/18 07:43 04/10/18 07:43 Oxygen Delivery Method Room Air Weight: 60 kg Body Mass Index (BMI) 20.7 Intake and Output for Last 24 Hours 04/08/18 04/09/18 04/10/18 23:59 23:59 23:59 Intake Total 360 / 360 Balance 360 / 360 Active Medications Acetaminophen (Tylenol) 650 mg PO Q8H PRN PRN PRN Reason: HEADACHE Last Admin: 04/07/18 20:56 Dose: 650 mg Hydrocodone Bitart/Acetaminophen ([place] 5mg-325mg) 1 tablet PO Q6H PRN PRN Reason: PAIN Last Admin: 04/09/18 07:30 Dose: 1 tablet Artificial Tears (Tears Naturale, Artificial Tears) 1 drop OPHTHALMIC TID [facility] Last Admin: 04/10/18 06:47 Dose: 1 drop Bisacodyl (Dulcolax) 10 mg RECTAL X1 PRN PRN Reason: CONSTIPATION Last Admin: 03/30/18 21:16 Dose: 10 mg Cholecalciferol (Vitamin D) 1,000 unit PO DAILY [facility] Last Admin: 04/10/18 07:45 Dose: 1,000 unit Enoxaparin Sodium (Lovenox) 30 mg SC DAILY@0600 [facility] Last Admin: 04/10/18 06:47 Dose: 30 mg Mirtazapine (Remeron) 15 mg PO QHS [facility] Last Admin: 04/09/18 19:34 Dose: 15 mg Nutritional Formula (Lactose Free) (Ensure Enlive) 120 ml PO 4X/DAY [facility] Last Admin: 04/10/18 07:45 Dose: 120 ml Prednisolone Acetate (Pred Forte Eye Drops (1 Ml)) 1 drop RIGHT EYE BID [facility] Last Admin: 04/10/18 07:45 Dose: 1 drop Quetiapine Fumarate (Seroquel) 25 mg PO DAILY@0800 [facility] Last Admin: 04/10/18 07:45 Dose: 25 mg Quetiapine Fumarate (Seroquel) 50 mg PO DAILY@2000 [facility] Last Admin: 04/09/18 19:35 Dose: 50 mg Senna/Docusate Sodium (Senokot-S, Lissette-Colace) 2 tablet PO BID [facility] Last Admin: 04/10/18 07:45 Dose: 2 tablet Medical Necessity - Tobacco Use Smoking Status: Heavy Smoker (>10/day) Tobacco Use: Cigarettes Assessment/Plan Early status post meningioma resection status post CSF leak and shunt. The patient was previously independent goal of rehab is sikhism of prior level functional independence. Plan: - Physical therapy for gait and balance - Occupational Therapy for ADLs - Speech therapy for speech and swallowing as well as cognition - As needed analgesics - Bowel protocol - DVT prophylaxis: Lovenox, SCDs, Kael han - Circadian disruption: Will stimulate during daytime with therapies hopefully this will resolve if not they need to address further by adjusting her Xanax dose or adding other sleep aids. - Donor site - C/D/I keep covered with adaptive dressing, do not place gait belt over the area, or below the breast area, may place belt above the breast. - Head incision - May shampoo hair, do not rub incision site, do not scratch incision site. Pat dy incision area. - Depression, decreased appetite => Remeron 15mg at HS - Seroquel 25mg in AM, and 50mg PM
[2018-04-10] MEDS: HYDROcodone Bitartrate/Apap 5/325 Tablet PO (10:10)
--- NOTE | 2018-04-10 14:29 | NURSING ---
patient has been cooperative this shift, no agitation noted. patient has called for assistance with needs and participating in therapy well.
[2018-04-10 20:30] VITALS: BP 98/57; PULSE 81; RESP 16; TEMP 36.8; O2SAT 96
[2018-04-10] MEDS: Mirtazapine 15 MG Tablet PO (20:33)
[2018-04-10] MEDS: QUEtiapine 25 MG Tablet 50 MG PO (20:34)
[2018-04-11] MEDS: HYDROcodone Bitartrate/Apap 5/325 Tablet PO (02:48)
--- NOTE | 2018-04-11 02:50 | NURSING ---
REVIEWED AND AGREE WITH BODY FITTER'S FIM AND HANDOFF CHARTING.
--- NOTE | 2018-04-11 02:53 | NURSING ---
pt woke to the go to the br and upon returning pt became weak and nauseated per director emergency services. pt stated that she had a headache and was noted to be dry heaving when back in the bed. vs 113/71 and ap was 89, which was higher than when assessed earlier in the shift. pt reports that her h/a was a 5/10 on the pain scale with a slight increase in blurriness;pt did not have her glasses on at this time. pt given sprite, crackers and cool wash cloth for her head. pt reported her nausea was subsiding. pt medicated with norco for h/a. will continue to monitor pt, rn aware.
[2018-04-11] MEDS: Enoxaparin 30 MG/0.3 ML Syringe SC (06:26)
[2018-04-11 07:44] VITALS: BP 112/67; PULSE 83; RESP 16; TEMP 36.6; O2SAT 95
[2018-04-11] MEDS: QUEtiapine 25 MG Tablet PO (07:48)
[2018-04-11] MEDS: prednisoLONE eye drops (1 mL) 1 DROP OPTH.BTL 1 DRP RIGHT EYE ×2 (07:49→20:24)
[2018-04-11] MEDS: Senna/Docusate Sodium 1 Tablet 2 TABLET PO ×2 (07:49→20:24)
--- NOTE | 2018-04-11 09:40 | CASEMGMT ---
Team meeting held. Patient present as well as patient son, Sivakumar. No discharge date set at this time. Patient to have insurance update on 04/12/18, patient and Sivakumar aware that continued stay approval is not guaranteed. Patient plans to discharge home where Sivakumar is working on getting [place] paperwork in order to be able to provide 24hr care for patient at time of discharge. Team is recommending for patient to have 24hr supervision at time of discharge. Patient to continue at this time. Plan is to re-team patient next week in the event that insurance approves more time. Support given. Will continue to follow. Nandini PEÑA, OUTBOUND SALES CONSULTANT
--- NOTE | 2018-04-11 10:44 | PCM.PN.NEU ---
Subjective: Staffed in team meeting. Family at bedside. Questions answered. With Physical therapy she is standby assist for getting to her feet, and for transfers. She is able to walk about 130 feet with a walker at contact guard. She does require cues occasionally to use the walker, has a tendency to park the walker and attempt to walk without it. She is able to go up and down 10 steps using one handrails at stand by to contact guard. With Occupational therapy, she is stand by assist for all self care, she occasionally needs help with some of her clothing, mostly to orient how the clothing items should go on. With Speech therapy, they will continue to work on the higher executive functional task. With Nursing, no new issues, patient's confusion has improved greatly. She has a follow up appointment with the surgeon on 04/16 at 11:30. Will re-team her next on 04/18. - Physical Exam General: Alert, Oriented x3, Cooperative HEENT: Atraumatic, PERRLA, EOMI, Normocephalic Neck: Supple, No JVD, Negative Carotid Bruits Lungs: Clear to auscultation, Normal air movement Cardiovascular: Regular rate, No murmurs Abdomen: Bowel Sounds Present, Soft, Non Tender Extremities: No edema, Capillary Refill Less than 3 Seconds Skin: No rashes, No breakdown Musculoskeletal: No Tenderness to Palpation of Joints or Extremities Neurological: Cranial nerves II-XII grossly intact Psych/Mental Status: Normal Affect, Appropriate Vital Signs Temp Pulse Resp BP Pulse Ox 97.8 F 83 16 112/67 95 04/11/18 07:44 04/11/18 07:44 04/11/18 07:44 04/11/18 07:44 04/11/18 07:44 Oxygen Delivery Method Room Air Weight: 60 kg Body Mass Index (BMI) 20.7 Intake and Output for Last 24 Hours 04/09/18 04/10/18 04/11/18 23:59 23:59 23:59 Intake Total 360 / 360 280 / 280 240 / 240 Balance 360 / 360 280 / 280 240 / 240 Active Medications Acetaminophen (Tylenol) 650 mg PO Q8H PRN PRN PRN Reason: HEADACHE Last Admin: 04/07/18 20:56 Dose: 650 mg Hydrocodone Bitart/Acetaminophen ([place] 5mg-325mg) 1 tablet PO Q6H PRN PRN Reason: PAIN Last Admin: 04/11/18 02:48 Dose: 1 tablet Artificial Tears (Tears Naturale, Artificial Tears) 1 drop OPHTHALMIC TID [facility] Last Admin: 04/11/18 06:26 Dose: 1 drop Bisacodyl (Dulcolax) 10 mg RECTAL X1 PRN PRN Reason: CONSTIPATION Last Admin: 03/30/18 21:16 Dose: 10 mg Cholecalciferol (Vitamin D) 1,000 unit PO DAILY [facility] Last Admin: 04/11/18 07:49 Dose: 1,000 unit Enoxaparin Sodium (Lovenox) 30 mg SC DAILY@0600 [facility] Last Admin: 04/11/18 06:26 Dose: 30 mg Mirtazapine (Remeron) 15 mg PO QHS [facility] Last Admin: 04/10/18 20:33 Dose: 15 mg Nutritional Formula (Lactose Free) (Ensure Enlive) 120 ml PO 4X/DAY [facility] Last Admin: 04/11/18 07:49 Dose: 120 ml Prednisolone Acetate (Pred Forte Eye Drops (1 Ml)) 1 drop RIGHT EYE BID [facility] Last Admin: 04/11/18 07:49 Dose: 1 drop Quetiapine Fumarate (Seroquel) 25 mg PO DAILY@0800 [facility] Last Admin: 04/11/18 07:48 Dose: 25 mg Quetiapine Fumarate (Seroquel) 50 mg PO DAILY@2000 [facility] Last Admin: 04/10/18 20:34 Dose: 50 mg Senna/Docusate Sodium (Senokot-S, Lissette-Colace) 2 tablet PO BID [facility] Last Admin: 04/11/18 07:49 Dose: 2 tablet Medical Necessity - Tobacco Use Smoking Status: Heavy Smoker (>10/day) Tobacco Use: Cigarettes Assessment/Plan Early status post meningioma resection status post CSF leak and shunt. The patient was previously independent goal of rehab is nondenominational of prior level functional independence. Plan: - Physical therapy for gait and balance - Occupational Therapy for ADLs - Speech therapy for speech and swallowing as well as cognition - As needed analgesics - Bowel protocol - DVT prophylaxis: Lovenox, SCDs, Kael hoses - Circadian disruption: Will stimulate during daytime with therapies hopefully this will resolve if not they need to address further by adjusting her Xanax dose or adding other sleep aids. - Donor site - C/D/I keep covered with adaptive dressing, do not place gait belt over the area, or below the breast area, may place belt above the breast. - Head incision - May shampoo hair, do not rub incision site, do not scratch incision site. Pat dy incision area. - Depression, decreased appetite => Remeron 15mg at HS - Seroquel 25mg in AM, and 50mg PM
--- NOTE | 2018-04-11 10:54 | PN.NEURO_ITS ---
Subjective: Staffed in team meeting. Family at bedside. Questions answered. With Physical therapy she is standby assist for getting to her feet, and for transfers. She is able to walk about 130 feet with a walker at contact guard. She does require cues occasionally to use the walker, has a tendency to park the walker and attempt to walk without it. She is able to go up and down 10 steps using one handrails at stand by to contact guard. With Occupational therapy, she is stand by assist for all self care, she occasionally needs help with some of her clothing, mostly to orient how the clothing items should go on. With Speech therapy, they will continue to work on the higher executive functional task. With Nursing, no new issues, patient's confusion has improved greatly. She has a follow up appointment with the surgeon on 04/16 at 11:30. Will re-team her next on 04/18. - Physical Exam General: Alert, Oriented x3, Cooperative HEENT: Atraumatic, PERRLA, EOMI, Normocephalic Neck: Supple, No JVD, Negative Carotid Bruits Lungs: Clear to auscultation, Normal air movement Cardiovascular: Regular rate, No murmurs Abdomen: Bowel Sounds Present, Soft, Non Tender Extremities: No edema, Capillary Refill Less than 3 Seconds Skin: No rashes, No breakdown Musculoskeletal: No Tenderness to Palpation of Joints or Extremities Neurological: Cranial nerves II-XII grossly intact Psych/Mental Status: Normal Affect, Appropriate Vital Signs Temp Pulse Resp BP Pulse Ox 97.8 F 83 16 112/67 95 04/11/18 07:44 04/11/18 07:44 04/11/18 07:44 04/11/18 07:44 04/11/18 07:44 Oxygen Delivery Method Room Air Weight: 60 kg Body Mass Index (BMI) 20.7 Intake and Output for Last 24 Hours 04/09/18 04/10/18 04/11/18 23:59 23:59 23:59 Intake Total 360 / 360 280 / 280 240 / 240 Balance 360 / 360 280 / 280 240 / 240 Active Medications Acetaminophen (Tylenol) 650 mg PO Q8H PRN PRN PRN Reason: HEADACHE Last Admin: 04/07/18 20:56 Dose: 650 mg Hydrocodone Bitart/Acetaminophen ([place] 5mg-325mg) 1 tablet PO Q6H PRN PRN Reason: PAIN Last Admin: 04/11/18 02:48 Dose: 1 tablet Artificial Tears (Tears Naturale, Artificial Tears) 1 drop OPHTHALMIC TID [facility] Last Admin: 04/11/18 06:26 Dose: 1 drop Bisacodyl (Dulcolax) 10 mg RECTAL X1 PRN PRN Reason: CONSTIPATION Last Admin: 03/30/18 21:16 Dose: 10 mg Cholecalciferol (Vitamin D) 1,000 unit PO DAILY [facility] Last Admin: 04/11/18 07:49 Dose: 1,000 unit Enoxaparin Sodium (Lovenox) 30 mg SC DAILY@0600 [facility] Last Admin: 04/11/18 06:26 Dose: 30 mg Mirtazapine (Remeron) 15 mg PO QHS [facility] Last Admin: 04/10/18 20:33 Dose: 15 mg Nutritional Formula (Lactose Free) (Ensure Enlive) 120 ml PO 4X/DAY [facility] Last Admin: 04/11/18 07:49 Dose: 120 ml Prednisolone Acetate (Pred Forte Eye Drops (1 Ml)) 1 drop RIGHT EYE BID [facility] Last Admin: 04/11/18 07:49 Dose: 1 drop Quetiapine Fumarate (Seroquel) 25 mg PO DAILY@0800 [facility] Last Admin: 04/11/18 07:48 Dose: 25 mg Quetiapine Fumarate (Seroquel) 50 mg PO DAILY@2000 [facility] Last Admin: 04/10/18 20:34 Dose: 50 mg Senna/Docusate Sodium (Senokot-S, Lissette-Colace) 2 tablet PO BID [facility] Last Admin: 04/11/18 07:49 Dose: 2 tablet Medical Necessity - Tobacco Use Smoking Status: Heavy Smoker (>10/day) Tobacco Use: Cigarettes Assessment/Plan Early status post meningioma resection status post CSF leak and shunt. The patient was previously independent goal of rehab is voodoo of prior level functional independence. Plan: - Physical therapy for gait and balance - Occupational Therapy for ADLs - Speech therapy for speech and swallowing as well as cognition - As needed analgesics - Bowel protocol - DVT prophylaxis: Lovenox, SCDs, Kael hoses - Circadian disruption: Will stimulate during daytime with therapies hopefully this will resolve if not they need to address further by adjusting her Xanax dose or adding other sleep aids. - Donor site - C/D/I keep covered with adaptive dressing, do not place gait belt over the area, or below the breast area, may place belt above the breast. - Head incision - May shampoo hair, do not rub incision site, do not scratch incision site. Pat dy incision area. - Depression, decreased appetite => Remeron 15mg at HS - Seroquel 25mg in AM, and 50mg PM
--- NOTE | 2018-04-11 12:00 | CASEMGMT ---
Insurance Continued stay approved with next update due on 04/12/18. Auth#[id number] Nandini PEÑA, TMH TEACHER
[2018-04-11] MEDS: QUEtiapine 25 MG Tablet 50 MG PO (20:23)
[2018-04-11] MEDS: Mirtazapine 15 MG Tablet PO (20:24)
[2018-04-11 20:26] VITALS: BP 81/43; PULSE 76; RESP 20; TEMP 36.4; O2SAT 95
[2018-04-11 20:31] VITALS: PULSE 76; RESP 20; O2SAT 95
[2018-04-12] MEDS: Enoxaparin 30 MG/0.3 ML Syringe SC (06:26)
--- NOTE | 2018-04-12 06:46 | NURSING ---
Reviewed and agree with LPNs fims and handoff
[2018-04-12] MEDS: QUEtiapine 25 MG Tablet PO (07:48)
[2018-04-12] MEDS: Senna/Docusate Sodium 1 Tablet 2 TABLET PO ×2 (07:49→19:41)
[2018-04-12] MEDS: prednisoLONE eye drops (1 mL) 1 DROP OPTH.BTL 1 DRP RIGHT EYE ×2 (07:49→19:41)
[2018-04-12 07:54] VITALS: BP 88/60; PULSE 78; RESP 16; TEMP 36.8; O2SAT 93
[2018-04-12] MEDS: Acetaminophen 325 MG Tablet 650 MG PO (11:17)
--- NOTE | 2018-04-12 13:52 | CASEMGMT ---
Insurance Clinical information sent. Pending continued stay approval at this time. Auth#[id number] Nandini PEÑA, SAND CARRIER
[2018-04-12] MEDS: Mirtazapine 15 MG Tablet PO (19:41)
[2018-04-12] MEDS: QUEtiapine 25 MG Tablet 50 MG PO (19:41)
[2018-04-12 19:46] VITALS: BP 93/64; PULSE 80; RESP 20; TEMP 36.5; O2SAT 96
[2018-04-12 19:48] VITALS: PULSE 80; RESP 20; O2SAT 96
--- NOTE | 2018-04-13 03:06 | NURSING ---
Reviewed and agree with LPNs fims and handoff
[2018-04-13] MEDS: Enoxaparin 30 MG/0.3 ML Syringe SC (06:21)
[2018-04-13 08:54] VITALS: BP 88/59; PULSE 81; RESP 16; TEMP 36.9; O2SAT 96
[2018-04-13] MEDS: prednisoLONE eye drops (1 mL) 1 DROP OPTH.BTL 1 DRP RIGHT EYE ×2 (09:03→20:56)
[2018-04-13] MEDS: QUEtiapine 25 MG Tablet PO (09:03)
[2018-04-13] MEDS: Senna/Docusate Sodium 1 Tablet 2 TABLET PO ×2 (09:03→20:57)
--- NOTE | 2018-04-13 13:24 | PCM.PROGNOTE ---
Subjective: Chief complaint: Follow-up after consultation for medical management after admission to rehab unit after patient underwent meningioma resection and BARGE MASTER shunt. Patient seen and examined. No acute events overnight. She denies any specific complaints. Her vital signs are stable, blood pressure is borderline but she is asymptomatic this has been her baseline. - Physical Exam General: Alert, Oriented x3, Cooperative, No apparent distress HEENT: Atraumatic, EOMI, Normocephalic, - - Right parietal surgical scar is clean and dry, right eye ptosis. Oral: Moist Mucosa, No Gingival or Mucosal Lesions/ Ulcerations Neck: Supple, No JVD, Negative Carotid Bruits, Trachea Midline, Thyroid Normal Size and Texture Lungs: Clear to auscultation, No rhonchi, No wheeze, No rales, Diminished Cardiovascular: Regular rate, Regular Rhythm, Normal S1, Normal S2, PMI Normal Abdomen: Bowel Sounds Present, Soft, Non Tender, Non-Distended, No Hepato-splenomegaly Extremities: No clubbing, No cyanosis, No edema Skin: No rashes, No breakdown Lymphatic: No Cervical, Supraclavicular, or Inguinal Adenopathy Neurological: Motor Exam 5/5 strength throughout, - - Right eye ptosis. Psych/Mental Status: Normal Affect, Appropriate, Alert and oriented to time, place, person, mood and affect Vital Signs Temp Pulse Resp BP Pulse Ox 98.5 F 81 16 88/59 L 96 04/13/18 08:54 04/13/18 08:54 04/13/18 08:54 04/13/18 08:54 04/13/18 08:54 Oxygen Delivery Method Room Air Weight: 132 lb 4.438 oz Body Mass Index (BMI) 20.7 Intake and Output for Last 24 Hours 04/11/18 04/12/18 04/13/18 23:59 23:59 23:59 Intake Total 600 / 600 240 / 240 Balance 600 / 600 240 / 240 Medical Necessity - Tobacco Use Smoking Status: Heavy Smoker (>10/day) Tobacco Use: Cigarettes Assessment/Plan This is a 57 years old female patient admitted to rehabilitation unit after she underwent meningioma resection with CSF leak status post BARGE MASTER shunt placement and she has a history of recurrent meningiomas. #1 status post meningioma resection and BARGE MASTER shunt due to CSF leak: Neurologically stable. Vital signs are stable. Routine blood work from April 07, 2018 reviewed and was unremarkable. She is doing good with physical therapy. #2 hypertension: Blood pressure stable, currently she is not on any antihypertensive medications. #3 moderate protein calorie malnutrition: Nutrition is seeing the patient, she is on supplements. #4 anxiety/depression: Continue Xanax, Remeron and Seroquel. #5 DVT prophylaxis: Subcu Lovenox. This note was generated with [employer] dictation software. It may contain incorrect words, spelling, and punctuation that were not noted in checking the note before signing. Code Visit Inpatient E&M: 62835 Subs Hosp L2
--- NOTE | 2018-04-13 13:31 | PN_ITS ---
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 Patient seen and examined. No acute events overnight. She denies any specific complaints. Her vital signs are stable, blood pressure is borderline but she is asymptomatic this has been her baseline. - Physical Exam General: Alert, Oriented x3, Cooperative, No apparent distress HEENT: Atraumatic, EOMI, Normocephalic, - - Right parietal surgical scar is clean and dry, right eye ptosis. Oral: Moist Mucosa, No Gingival or Mucosal Lesions/ Ulcerations Neck: Supple, No JVD, Negative Carotid Bruits, Trachea Midline, Thyroid Normal Size and Texture Lungs: Clear to auscultation, No rhonchi, No wheeze, No rales, Diminished Cardiovascular: Regular rate, Regular Rhythm, Normal S1, Normal S2, PMI Normal Abdomen: Bowel Sounds Present, Soft, Non Tender, Non-Distended, No Hepato- splenomegaly Extremities: No clubbing, No cyanosis, No edema Skin: No rashes, No breakdown Lymphatic: No Cervical, Supraclavicular, or Inguinal Adenopathy Neurological: Motor Exam 5/5 strength throughout, - - Right eye ptosis. Psych/Mental Status: Normal Affect, Appropriate, Alert and oriented to time, place, person, mood and affect Vital Signs Temp Pulse Resp BP Pulse Ox 98.5 F 81 16 88/59 L 96 04/13/18 08:54 04/13/18 08:54 04/13/18 08:54 04/13/18 08:54 04/13/18 08:54 Oxygen Delivery Method Room Air Weight: 132 lb 4.438 oz Body Mass Index (BMI) 20.7 Intake and Output for Last 24 Hours 04/11/18 04/12/18 04/13/18 23:59 23:59 23:59 Intake Total 600 / 600 240 / 240 Balance 600 / 600 240 / 240 Medical Necessity - Tobacco Use Smoking Status: Heavy Smoker (>10/day) Tobacco Use: Cigarettes Assessment/Plan This is a 57 years old female patient admitted to rehabilitation unit after she underwent meningioma resection with CSF leak status post MILLING OPERATOR shunt placement and she has a history of recurrent meningiomas. #1 status post meningioma resection and MILLING OPERATOR shunt due to CSF leak: Neurologically stable. Vital signs are stable. Routine blood work from [facility] , 2018 reviewed and was unremarkable. She is doing good with physical therapy. #2 hypertension: Blood pressure stable, currently she is not on any antihypertensive medications. #3 moderate protein calorie malnutrition: Nutrition is seeing the patient, she is on supplements. #4 anxiety/depression: Continue Xanax, Remeron and Seroquel. #5 DVT prophylaxis: Subcu Lovenox. This note was generated with [employer] dictation software. It may contain incorrect words, spelling, and punctuation that were not noted in checking the note before signing. Code Visit Inpatient E&M: 53661 Subs Hosp L2
[2018-04-13] MEDS: Acetaminophen 325 MG Tablet 650 MG PO (18:19)
[2018-04-13 20:49] VITALS: BP 98/72; PULSE 80; RESP 16; TEMP 36.6; O2SAT 93
[2018-04-13] MEDS: QUEtiapine 25 MG Tablet 50 MG PO (20:52)
[2018-04-13] MEDS: Mirtazapine 15 MG Tablet PO (20:57)
--- NOTE | 2018-04-14 03:08 | NURSING ---
Reviewed and agree with HEALTH ANALYST documentation and FIMS charting.
[2018-04-14] MEDS: Acetaminophen 325 MG Tablet 650 MG PO (06:23)
[2018-04-14] MEDS: Enoxaparin 30 MG/0.3 ML Syringe SC (06:23)
[2018-04-14 08:34] VITALS: BP 89/60; PULSE 77; RESP 16; TEMP 36.6; O2SAT 92
[2018-04-14] MEDS: Senna/Docusate Sodium 1 Tablet 2 TABLET PO ×2 (08:46→19:58)
[2018-04-14] MEDS: QUEtiapine 25 MG Tablet PO (08:46)
[2018-04-14] MEDS: prednisoLONE eye drops (1 mL) 1 DROP OPTH.BTL 1 DRP RIGHT EYE ×2 (08:46→19:57)
[2018-04-14 08:50] VITALS: PULSE 77; RESP 16; O2SAT 92
[2018-04-14] MEDS: HYDROcodone Bitartrate/Apap 5/325 Tablet PO (14:00)
[2018-04-14 18:16] VITALS: BP 90/67; PULSE 75; RESP 16; TEMP 36.6; O2SAT 93
[2018-04-14] MEDS: QUEtiapine 25 MG Tablet 50 MG PO (19:57)
[2018-04-14] MEDS: Mirtazapine 15 MG Tablet PO (19:58)
--- NOTE | 2018-04-15 05:16 | NURSING ---
Reviewed and agree with PRIMER SUPERVISOR documentation and FIMS charting.
[2018-04-15] MEDS: Enoxaparin 30 MG/0.3 ML Syringe SC (05:53)
--- NOTE | 2018-04-15 05:58 | NURSING ---
upon walking through the hallway, this nurse noted that pt was talking on the phone. pt rang call light and upon entering room, this nurse found pt extremely confused and questioning where she was. pt was on the phone with son, AMALIA, and was claiming that she was not in [place] where she was supposed to be. Son asked to speak with this nurse. Son was informed that the pt was indeed at [facility]. pt was reoriented back to place and time. POA aware pt has some confusion at times. son expressed concerns for the pt and how she is progressing. this nurse informed son that pt is participating well in therapy, but at times she can become very confused. son aware of mental status and very understanding of the situation. will continue to monitor.
[2018-04-15 07:46] VITALS: BP 82/62; PULSE 81; RESP 20; TEMP 36.4; O2SAT 96
[2018-04-15] MEDS: prednisoLONE eye drops (1 mL) 1 DROP OPTH.BTL 1 DRP RIGHT EYE ×2 (07:54→19:43)
[2018-04-15] MEDS: QUEtiapine 25 MG Tablet PO (07:54)
[2018-04-15] MEDS: Senna/Docusate Sodium 1 Tablet 2 TABLET PO (07:55)
--- NOTE | 2018-04-15 10:54 | PCM.PN.NEU ---
Subjective: Patient lying quietly in be sleeping, easily arousable. She denies any specific complaints. No acute issues over night per Nursing staff. Tolerating therapy. No issues with GI/. Her vital signs are stable. - Physical Exam General: Alert, Oriented x3, Cooperative HEENT: Atraumatic, PERRLA, EOMI, Normocephalic, - - Right eye ptosis Neck: Supple, No JVD, Negative Carotid Bruits Lungs: Clear to auscultation, Normal air movement Cardiovascular: Regular rate, No murmurs Abdomen: Bowel Sounds Present, Soft, Non Tender Extremities: No edema, Capillary Refill Less than 3 Seconds Skin: No rashes, No breakdown Musculoskeletal: No Tenderness to Palpation of Joints or Extremities Neurological: Cranial nerves II-XII grossly intact Psych/Mental Status: Normal Affect, Appropriate, Alert and oriented to time, place, person, mood and affect Vital Signs Temp Pulse Resp BP Pulse Ox 97.6 F L 81 20 H 82/62 L 96 04/15/18 07:46 04/15/18 07:46 04/15/18 07:46 04/15/18 07:46 04/15/18 07:46 Oxygen Delivery Method Room Air Weight: 60 kg Body Mass Index (BMI) 20.7 Intake and Output for Last 24 Hours 04/13/18 04/14/18 04/15/18 23:59 23:59 23:59 Intake Total 240 / 240 200 / 200 240 / 240 Balance 240 / 240 200 / 200 240 / 240 Active Medications Acetaminophen (Tylenol) 650 mg PO Q8H PRN PRN PRN Reason: HEADACHE Last Admin: 04/14/18 06:23 Dose: 650 mg Hydrocodone Bitart/Acetaminophen ([place] 5mg-325mg) 1 tablet PO Q6H PRN PRN Reason: PAIN Last Admin: 04/14/18 14:00 Dose: 1 tablet Artificial Tears (Tears Naturale, Artificial Tears) 1 drop OPHTHALMIC TID [facility] Last Admin: 04/15/18 05:53 Dose: 1 drop Bisacodyl (Dulcolax) 10 mg RECTAL X1 PRN PRN Reason: CONSTIPATION Last Admin: 03/30/18 21:16 Dose: 10 mg Cholecalciferol (Vitamin D) 1,000 unit PO DAILY [facility] Last Admin: 04/15/18 07:55 Dose: 1,000 unit Enoxaparin Sodium (Lovenox) 30 mg SC DAILY@0600 [facility] Last Admin: 04/15/18 05:53 Dose: 30 mg Mirtazapine (Remeron) 15 mg PO QHS [facility] Last Admin: 04/14/18 19:58 Dose: 15 mg Nutritional Formula (Lactose Free) (Ensure Enlive) 120 ml PO 4X/DAY [facility] Last Admin: 04/15/18 07:54 Dose: 120 ml Prednisolone Acetate (Pred Forte Eye Drops (1 Ml)) 1 drop RIGHT EYE BID [facility] Last Admin: 04/15/18 07:54 Dose: 1 drop Quetiapine Fumarate (Seroquel) 25 mg PO DAILY@0800 [facility] Last Admin: 04/15/18 07:54 Dose: 25 mg Quetiapine Fumarate (Seroquel) 50 mg PO DAILY@1999 [facility] Last Admin: 04/14/18 19:57 Dose: 50 mg Senna/Docusate Sodium (Senokot-S, Lissette-Colace) 2 tablet PO BID [facility] Last Admin: 04/15/18 07:55 Dose: 2 tablet Medical Necessity - Tobacco Use Smoking Status: Heavy Smoker (>10/day) Tobacco Use: Cigarettes Assessment/Plan Early status post meningioma resection status post CSF leak and shunt. The patient was previously independent goal of rehab is yazdanism of prior level functional independence. Plan: - Physical therapy for gait and balance - Occupational Therapy for ADLs - Speech therapy for speech and swallowing as well as cognition - As needed analgesics - Bowel protocol - DVT prophylaxis: Lovenox, SCDs, Kael hoses - Circadian disruption: Will stimulate during daytime with therapies hopefully this will resolve if not they need to address further by adjusting her Xanax dose or adding other sleep aids. - Donor site - C/D/I keep covered with adaptive dressing, do not place gait belt over the area, or below the breast area, may place belt above the breast. - Head incision - May shampoo hair, do not rub incision site, do not scratch incision site. Pat dy incision area. - Depression, decreased appetite => Remeron 15mg at HS - Seroquel 25mg in AM, and 50mg PM
--- NOTE | 2018-04-15 10:58 | PN.NEURO_ITS ---
Subjective: Patient lying quietly in be sleeping, easily arousable. She denies any specific complaints. No acute issues over night per Nursing staff. Tolerating therapy. No issues with GI/. Her vital signs are stable. - Physical Exam General: Alert, Oriented x3, Cooperative HEENT: Atraumatic, PERRLA, EOMI, Normocephalic, - - Right eye ptosis Neck: Supple, No JVD, Negative Carotid Bruits Lungs: Clear to auscultation, Normal air movement Cardiovascular: Regular rate, No murmurs Abdomen: Bowel Sounds Present, Soft, Non Tender Extremities: No edema, Capillary Refill Less than 3 Seconds Skin: No rashes, No breakdown Musculoskeletal: No Tenderness to Palpation of Joints or Extremities Neurological: Cranial nerves II-XII grossly intact Psych/Mental Status: Normal Affect, Appropriate, Alert and oriented to time, place, person, mood and affect Vital Signs Temp Pulse Resp BP Pulse Ox 97.6 F L 81 20 H 82/62 L 96 04/15/18 07:46 04/15/18 07:46 04/15/18 07:46 04/15/18 07:46 04/15/18 07:46 Oxygen Delivery Method Room Air Weight: 60 kg Body Mass Index (BMI) 20.7 Intake and Output for Last 24 Hours 04/13/18 04/14/18 04/15/18 23:59 23:59 23:59 Intake Total 240 / 240 200 / 200 240 / 240 Balance 240 / 240 200 / 200 240 / 240 Active Medications Acetaminophen (Tylenol) 650 mg PO Q8H PRN PRN PRN Reason: HEADACHE Last Admin: 04/14/18 06:23 Dose: 650 mg Hydrocodone Bitart/Acetaminophen ([place] 5mg-325mg) 1 tablet PO Q6H PRN PRN Reason: PAIN Last Admin: 04/14/18 14:00 Dose: 1 tablet Artificial Tears (Tears Naturale, Artificial Tears) 1 drop OPHTHALMIC TID [facility] Last Admin: 04/15/18 05:53 Dose: 1 drop Bisacodyl (Dulcolax) 10 mg RECTAL X1 PRN PRN Reason: CONSTIPATION Last Admin: 03/30/18 21:16 Dose: 10 mg Cholecalciferol (Vitamin D) 1,000 unit PO DAILY [facility] Last Admin: 04/15/18 07:55 Dose: 1,000 unit Enoxaparin Sodium (Lovenox) 30 mg SC DAILY@0600 [facility] Last Admin: 04/15/18 05:53 Dose: 30 mg Mirtazapine (Remeron) 15 mg PO QHS [facility] Last Admin: 04/14/18 19:58 Dose: 15 mg Nutritional Formula (Lactose Free) (Ensure Enlive) 120 ml PO 4X/DAY [facility] Last Admin: 04/15/18 07:54 Dose: 120 ml Prednisolone Acetate (Pred Forte Eye Drops (1 Ml)) 1 drop RIGHT EYE BID [facility] Last Admin: 04/15/18 07:54 Dose: 1 drop Quetiapine Fumarate (Seroquel) 25 mg PO DAILY@0800 [facility] Last Admin: 04/15/18 07:54 Dose: 25 mg Quetiapine Fumarate (Seroquel) 50 mg PO DAILY@1999 [facility] Last Admin: 04/14/18 19:57 Dose: 50 mg Senna/Docusate Sodium (Senokot-S, Lissette-Colace) 2 tablet PO BID [facility] Last Admin: 04/15/18 07:55 Dose: 2 tablet Medical Necessity - Tobacco Use Smoking Status: Heavy Smoker (>10/day) Tobacco Use: Cigarettes Assessment/Plan Early status post meningioma resection status post CSF leak and shunt. The patient was previously independent goal of rehab is faith of prior level functional independence. Plan: - Physical therapy for gait and balance - Occupational Therapy for ADLs - Speech therapy for speech and swallowing as well as cognition - As needed analgesics - Bowel protocol - DVT prophylaxis: Lovenox, SCDs, Kael hoses - Circadian disruption: Will stimulate during daytime with therapies hopefully this will resolve if not they need to address further by adjusting her Xanax dose or adding other sleep aids. - Donor site - C/D/I keep covered with adaptive dressing, do not place gait belt over the area, or below the breast area, may place belt above the breast. - Head incision - May shampoo hair, do not rub incision site, do not scratch incision site. Pat dy incision area. - Depression, decreased appetite => Remeron 15mg at HS - Seroquel 25mg in AM, and 50mg PM
--- NOTE | 2018-04-15 12:35 | PN_ITS ---
Subjective: Patient had meningioma resection and CREPE BOX TENDER shunt. Right eye ptosis. Hard of hearing. Vitals/I&O's: Vital Signs Temp Pulse Resp BP Pulse Ox 97.6 F L 81 20 H 82/62 L 96 04/15/18 07:46 04/15/18 07:46 04/15/18 07:46 04/15/18 07:46 04/15/18 07:46 Oxygen Delivery Method Room Air Weight: 132 lb 4.438 oz Body Mass Index (BMI) 20.7 Intake and Output for Last 24 Hours 04/13/18 04/14/18 04/15/18 23:59 23:59 23:59 Intake Total 240 / 240 200 / 200 240 / 240 Balance 240 / 240 200 / 200 240 / 240 General: Alert, Oriented x3, Cooperative HEENT: Atraumatic, PERRLA, EOMI, Normocephalic Neck: Supple, No JVD, Negative Carotid Bruits Lungs: Clear to auscultation, Normal air movement Cardiovascular: Regular rate, Normal S1, Normal S2, No murmurs Abdomen: Bowel Sounds Present, Soft, Non Tender Extremities: No edema, Capillary Refill Less than 3 Seconds Skin: No rashes, No breakdown Musculoskeletal: No Tenderness to Palpation of Joints or Extremities, Arthritic Changes Neurological: Cranial nerves II-XII grossly intact, - - Slow speech, but denies problem in finding words. Psych/Mental Status: Normal Affect, Appropriate Current Medications Acetaminophen (Tylenol) 650 mg PO Q8H PRN PRN PRN Reason: HEADACHE Last Admin: 04/14/18 06:23 Dose: 650 mg Hydrocodone Bitart/Acetaminophen ([place] 5mg-325mg) 1 tablet PO Q6H PRN PRN Reason: PAIN Last Admin: 04/14/18 14:00 Dose: 1 tablet Artificial Tears (Tears Naturale, Artificial Tears) 1 drop OPHTHALMIC TID [facility] Last Admin: 04/15/18 05:53 Dose: 1 drop Bisacodyl (Dulcolax) 10 mg RECTAL X1 PRN PRN Reason: CONSTIPATION Last Admin: 03/30/18 21:16 Dose: 10 mg Cholecalciferol (Vitamin D) 1,000 unit PO DAILY [facility] Last Admin: 04/15/18 07:55 Dose: 1,000 unit Enoxaparin Sodium (Lovenox) 30 mg SC DAILY@0600 [facility] Last Admin: 04/15/18 05:53 Dose: 30 mg Mirtazapine (Remeron) 15 mg PO QHS [facility] Last Admin: 04/14/18 19:58 Dose: 15 mg Nutritional Formula (Lactose Free) (Ensure Enlive) 120 ml PO 4X/DAY [facility] Last Admin: 04/15/18 07:54 Dose: 120 ml Prednisolone Acetate (Pred Forte Eye Drops (1 Ml)) 1 drop RIGHT EYE BID [facility] Last Admin: 04/15/18 07:54 Dose: 1 drop Quetiapine Fumarate (Seroquel) 25 mg PO DAILY@0800 [facility] Last Admin: 04/15/18 07:54 Dose: 25 mg Quetiapine Fumarate (Seroquel) 50 mg PO DAILY@1999 [facility] Last Admin: 04/14/18 19:57 Dose: 50 mg Senna/Docusate Sodium (Senokot-S, Lissette-Colace) 2 tablet PO BID [facility] Last Admin: 04/15/18 07:55 Dose: 2 tablet Medical Necessity - Tobacco Use Smoking Status: Heavy Smoker (>10/day) Tobacco Use: Cigarettes Assessment/Plan This is a 57 years old female patient is being admitted to rehabilitation unit after she underwent meningioma resection with CSF leak status post right CREPE BOX TENDER shunt placement and she has a history of recurrent meningiomas. #1 status post meningioma resection and CREPE BOX TENDER shunt due to CSF leak: Right parietal surgical scar is clean and dry. Neurologically stable. Vital signs are stable. Labs from April 07, 2018 reviewed and was unremarkable. She is doing good with physical therapy. 2. Pyuria IN UA: Patient denies lower urinary tract symptoms. UA shows mild leukocyte esterase and WBC 10-25 cells per hpf. Urine culture shows contamination of mixed organism. UTI ruled out. No antibiotic indicated. 3 hypertension: Blood pressure stable, currently she is not on any antihypertensive medications. moderate protein calorie malnutrition: Nutrition is seeing the patient, she is on supplements. #4 anxiety/depression: Continue Xanax, Remeron and Seroquel. #5 DVT prophylaxis: Subcu Lovenox. Code Visit Inpatient E&M: 46017 Subs Hosp L2
--- NOTE | 2018-04-15 13:43 | CASEMGMT ---
Insurance Continued stay approved with next update due on 04/19/18. Auth#[id number] Nandini PEÑA, ONLINE PUBLISHER
[2018-04-15 19:28] VITALS: BP 92/70; PULSE 85; RESP 20; TEMP 36.6; O2SAT 96
[2018-04-15] MEDS: QUEtiapine 25 MG Tablet 50 MG PO (19:42)
[2018-04-15] MEDS: Mirtazapine 15 MG Tablet PO (19:43)
--- NOTE | 2018-04-16 01:44 | NURSING ---
REVIEWED AND AGREE WITH STORE ADMINISTRATOR'S FIM AND HANDOFF CHARTING.
[2018-04-16] MEDS: Enoxaparin 30 MG/0.3 ML Syringe SC (06:20)
[2018-04-16 07:42] VITALS: BP 84/58; PULSE 82; RESP 18; TEMP 36.8; O2SAT 96
[2018-04-16] MEDS: Senna/Docusate Sodium 1 Tablet 2 TABLET PO ×2 (07:49→19:51)
[2018-04-16] MEDS: QUEtiapine 25 MG Tablet PO (07:49)
[2018-04-16] MEDS: prednisoLONE eye drops (1 mL) 1 DROP OPTH.BTL 1 DRP RIGHT EYE ×2 (07:50→19:51)
[2018-04-16] MEDS: HYDROcodone Bitartrate/Apap 5/325 Tablet PO (07:53)
[2018-04-16 08:06] VITALS: BP 94/68
--- NOTE | 2018-04-16 10:15 | NURSING ---
off unit to dr clark appt via [facility].
--- NOTE | 2018-04-16 10:46 | PCM.PN.NEU ---
Subjective: Patient is sitting comfortably in bedside recliner, working with the Speech therapist. She is much more alert and oriented to her surroundings. Tolerating therapy. She has an appointment with her Surgeon today. - Physical Exam General: Alert, Oriented x3, Cooperative HEENT: Atraumatic, PERRLA, EOMI, Normocephalic Neck: Supple, No JVD, Negative Carotid Bruits Lungs: Clear to auscultation, Normal air movement Cardiovascular: Regular rate, No murmurs Abdomen: Bowel Sounds Present, Soft, Non Tender Extremities: No edema, Capillary Refill Less than 3 Seconds Skin: No rashes, No breakdown Musculoskeletal: No Tenderness to Palpation of Joints or Extremities Neurological: Cranial nerves II-XII grossly intact, Motor Exam 5/5 strength throughout, - - Right eye ptosis Psych/Mental Status: Normal Affect, Appropriate, Alert and oriented to time, place, person, mood and affect - Still unable to name the city she is in, but is aware when she says a place that it is not right. Vital Signs Temp Pulse Resp BP Pulse Ox 98.2 F 82 18 94/68 96 04/16/18 07:42 04/16/18 07:42 04/16/18 07:42 04/16/18 08:06 04/16/18 07:42 Oxygen Delivery Method Room Air Weight: 60 kg Body Mass Index (BMI) 20.7 Intake and Output for Last 24 Hours 04/14/18 04/15/18 04/16/18 23:59 23:59 23:59 Intake Total 200 / 200 600 / 600 260 / 260 Balance 200 / 200 600 / 600 260 / 260 Active Medications Acetaminophen (Tylenol) 650 mg PO Q8H PRN PRN PRN Reason: HEADACHE Last Admin: 04/14/18 06:23 Dose: 650 mg Hydrocodone Bitart/Acetaminophen ([place] 5mg-325mg) 1 tablet PO Q6H PRN PRN Reason: PAIN Last Admin: 04/16/18 07:53 Dose: 1 tablet Artificial Tears (Tears Naturale, Artificial Tears) 1 drop OPHTHALMIC TID [facility] Last Admin: 04/16/18 06:21 Dose: 1 drop Bisacodyl (Dulcolax) 10 mg RECTAL X1 PRN PRN Reason: CONSTIPATION Last Admin: 03/30/18 21:16 Dose: 10 mg Cholecalciferol (Vitamin D) 1,000 unit PO DAILY [facility] Last Admin: 04/16/18 07:49 Dose: 1,000 unit Enoxaparin Sodium (Lovenox) 30 mg SC DAILY@0600 [facility] Last Admin: 04/16/18 06:20 Dose: 30 mg Mirtazapine (Remeron) 15 mg PO QHS [facility] Last Admin: 04/15/18 19:43 Dose: 15 mg Nutritional Formula (Lactose Free) (Ensure Enlive) 120 ml PO 4X/DAY [facility] Last Admin: 04/16/18 07:51 Dose: 120 ml Prednisolone Acetate (Pred Forte Eye Drops (1 Ml)) 1 drop RIGHT EYE BID [facility] Last Admin: 04/16/18 07:50 Dose: 1 drop Quetiapine Fumarate (Seroquel) 25 mg PO DAILY@0800 [facility] Last Admin: 04/16/18 07:49 Dose: 25 mg Quetiapine Fumarate (Seroquel) 50 mg PO DAILY@1999 [facility] Last Admin: 04/15/18 19:42 Dose: 50 mg Senna/Docusate Sodium (Senokot-S, Lissette-Colace) 2 tablet PO BID [facility] Last Admin: 04/16/18 07:49 Dose: 1 tablet Medical Necessity - Tobacco Use Smoking Status: Heavy Smoker (>10/day) Tobacco Use: Cigarettes Assessment/Plan Early status post meningioma resection status post CSF leak and shunt. The patient was previously independent goal of rehab is yarsanism of prior level functional independence. Plan: - Physical therapy for gait and balance - Occupational Therapy for ADLs - Speech therapy for speech and swallowing as well as cognition - As needed analgesics - Bowel protocol - DVT prophylaxis: Lovenox, SCDs, Kael han - Circadian disruption: Will stimulate during daytime with therapies hopefully this will resolve if not they need to address further by adjusting her Xanax dose or adding other sleep aids. - Donor site - C/D/I keep covered with adaptive dressing, do not place gait belt over the area, or below the breast area, may place belt above the breast. - Head incision - May shampoo hair, do not rub incision site, do not scratch incision site. Pat dy incision area. - Depression, decreased appetite => Remeron 15mg at HS - Seroquel 25mg in AM, and 50mg PM
--- NOTE | 2018-04-16 10:49 | PN.NEURO_ITS ---
Subjective: Patient is sitting comfortably in bedside recliner, working with the Speech therapist. She is much more alert and oriented to her surroundings. Tolerating therapy. She has an appointment with her Surgeon today. - Physical Exam General: Alert, Oriented x3, Cooperative HEENT: Atraumatic, PERRLA, EOMI, Normocephalic Neck: Supple, No JVD, Negative Carotid Bruits Lungs: Clear to auscultation, Normal air movement Cardiovascular: Regular rate, No murmurs Abdomen: Bowel Sounds Present, Soft, Non Tender Extremities: No edema, Capillary Refill Less than 3 Seconds Skin: No rashes, No breakdown Musculoskeletal: No Tenderness to Palpation of Joints or Extremities Neurological: Cranial nerves II-XII grossly intact, Motor Exam 5/5 strength throughout, - - Right eye ptosis Psych/Mental Status: Normal Affect, Appropriate, Alert and oriented to time, place, person, mood and affect - Still unable to name the city she is in, but is aware when she says a place that it is not right. Vital Signs Temp Pulse Resp BP Pulse Ox 98.2 F 82 18 94/68 96 04/16/18 07:42 04/16/18 07:42 04/16/18 07:42 04/16/18 08:06 04/16/18 07:42 Oxygen Delivery Method Room Air Weight: 60 kg Body Mass Index (BMI) 20.7 Intake and Output for Last 24 Hours 04/14/18 04/15/18 04/16/18 23:59 23:59 23:59 Intake Total 200 / 200 600 / 600 260 / 260 Balance 200 / 200 600 / 600 260 / 260 Active Medications Acetaminophen (Tylenol) 650 mg PO Q8H PRN PRN PRN Reason: HEADACHE Last Admin: 04/14/18 06:23 Dose: 650 mg Hydrocodone Bitart/Acetaminophen ([place] 5mg-325mg) 1 tablet PO Q6H PRN PRN Reason: PAIN Last Admin: 04/16/18 07:53 Dose: 1 tablet Artificial Tears (Tears Naturale, Artificial Tears) 1 drop OPHTHALMIC TID [facility] Last Admin: 04/16/18 06:21 Dose: 1 drop Bisacodyl (Dulcolax) 10 mg RECTAL X1 PRN PRN Reason: CONSTIPATION Last Admin: 03/30/18 21:16 Dose: 10 mg Cholecalciferol (Vitamin D) 1,000 unit PO DAILY [facility] Last Admin: 04/16/18 07:49 Dose: 1,000 unit Enoxaparin Sodium (Lovenox) 30 mg SC DAILY@0600 [facility] Last Admin: 04/16/18 06:20 Dose: 30 mg Mirtazapine (Remeron) 15 mg PO QHS [facility] Last Admin: 04/15/18 19:43 Dose: 15 mg Nutritional Formula (Lactose Free) (Ensure Enlive) 120 ml PO 4X/DAY [facility] Last Admin: 04/16/18 07:51 Dose: 120 ml Prednisolone Acetate (Pred Forte Eye Drops (1 Ml)) 1 drop RIGHT EYE BID [facility] Last Admin: 04/16/18 07:50 Dose: 1 drop Quetiapine Fumarate (Seroquel) 25 mg PO DAILY@0800 [facility] Last Admin: 04/16/18 07:49 Dose: 25 mg Quetiapine Fumarate (Seroquel) 50 mg PO DAILY@1999 [facility] Last Admin: 04/15/18 19:42 Dose: 50 mg Senna/Docusate Sodium (Senokot-S, Lissette-Colace) 2 tablet PO BID [facility] Last Admin: 04/16/18 07:49 Dose: 1 tablet Medical Necessity - Tobacco Use Smoking Status: Heavy Smoker (>10/day) Tobacco Use: Cigarettes Assessment/Plan Early status post meningioma resection status post CSF leak and shunt. The patient was previously independent goal of rehab is zoroastrianism of prior level functional independence. Plan: - Physical therapy for gait and balance - Occupational Therapy for ADLs - Speech therapy for speech and swallowing as well as cognition - As needed analgesics - Bowel protocol - DVT prophylaxis: Lovenox, SCDs, Kael han - Circadian disruption: Will stimulate during daytime with therapies hopefully this will resolve if not they need to address further by adjusting her Xanax dose or adding other sleep aids. - Donor site - C/D/I keep covered with adaptive dressing, do not place gait belt over the area, or below the breast area, may place belt above the breast. - Head incision - May shampoo hair, do not rub incision site, do not scratch incision site. Pat dy incision area. - Depression, decreased appetite => Remeron 15mg at HS - Seroquel 25mg in AM, and 50mg PM
[2018-04-16] MEDS: QUEtiapine 25 MG Tablet 50 MG PO (19:51)
[2018-04-16] MEDS: Mirtazapine 15 MG Tablet PO (19:51)
[2018-04-16 20:00] VITALS: PULSE 73; RESP 18; O2SAT 95
[2018-04-16 20:32] VITALS: BP 94/66; PULSE 68; RESP 16; TEMP 36.7; O2SAT 96
--- NOTE | 2018-04-17 02:03 | NURSING ---
Reviewed and agree with MOTORCYCLE BUILDER documentation and FIMS charting.
[2018-04-17] MEDS: Enoxaparin 30 MG/0.3 ML Syringe SC (05:23)
[2018-04-17] MEDS: Senna/Docusate Sodium 1 Tablet 2 TABLET PO ×2 (08:33→20:11)
[2018-04-17] MEDS: prednisoLONE eye drops (1 mL) 1 DROP OPTH.BTL 1 DRP RIGHT EYE ×2 (08:33→20:05)
[2018-04-17] MEDS: QUEtiapine 25 MG Tablet PO (08:33)
[2018-04-17] MEDS: Acetaminophen 325 MG Tablet 650 MG PO (08:47)
--- NOTE | 2018-04-17 08:54 | NURSING ---
pt refusing to have hearing aids in at this time.
[2018-04-17 10:00] VITALS: BP 107/69; PULSE 82; RESP 16; TEMP 36.7; O2SAT 93
--- NOTE | 2018-04-17 15:30 | PN_ITS ---
Subjective: Patient has right eye ptosis and lateral margin of eyelashes stick together Vitals/I&O's: Vital Signs Temp Pulse Resp BP Pulse Ox 98.0 F 82 16 107/69 93 04/17/18 10:00 04/17/18 10:00 04/17/18 10:00 04/17/18 10:00 04/17/18 10:00 Oxygen Delivery Method Room Air Weight: 129 lb 6.581 oz Body Mass Index (BMI) 20.7 Intake and Output for Last 24 Hours 04/15/18 04/16/18 04/17/18 23:59 23:59 23:59 Intake Total 600 / 600 380 / 380 360 / 360 Balance 600 / 600 380 / 380 360 / 360 General: Alert, Cooperative, Disoriented - Disoriented to time and place HEENT: Atraumatic, PERRLA, EOMI, Normocephalic Neck: Supple, No JVD, Negative Carotid Bruits Lungs: Clear to auscultation, Normal air movement Cardiovascular: Regular rate, Normal S1, Normal S2, No murmurs Abdomen: Bowel Sounds Present, Soft, Non Tender Extremities: No edema, Capillary Refill Less than 3 Seconds Skin: No rashes, No breakdown Musculoskeletal: No Tenderness to Palpation of Joints or Extremities Neurological: - - Right eye ptosis. Psych/Mental Status: Normal Affect, Appropriate Current Medications Acetaminophen (Tylenol) 650 mg PO Q8H PRN PRN PRN Reason: HEADACHE Last Admin: 04/17/18 08:47 Dose: 650 mg Hydrocodone Bitart/Acetaminophen ([place] 5mg-325mg) 1 tablet PO Q6H PRN PRN Reason: PAIN Last Admin: 04/16/18 07:53 Dose: 1 tablet Artificial Tears (Tears Naturale, Artificial Tears) 1 drop OPHTHALMIC TID [facility] Last Admin: 04/17/18 05:24 Dose: 1 drop Bisacodyl (Dulcolax) 10 mg RECTAL X1 PRN PRN Reason: CONSTIPATION Last Admin: 03/30/18 21:16 Dose: 10 mg Cholecalciferol (Vitamin D) 1,000 unit PO DAILY [facility] Last Admin: 04/17/18 08:33 Dose: 1,000 unit Enoxaparin Sodium (Lovenox) 30 mg SC DAILY@0600 [facility] Last Admin: 04/17/18 05:23 Dose: 30 mg Mirtazapine (Remeron) 15 mg PO QHS [facility] Last Admin: 04/16/18 19:51 Dose: 15 mg Nutritional Formula (Lactose Free) (Ensure Enlive) 120 ml PO 4X/DAY [facility] Last Admin: 04/17/18 08:33 Dose: 120 ml Prednisolone Acetate (Pred Forte Eye Drops (1 Ml)) 1 drop RIGHT EYE BID [facility] Last Admin: 04/17/18 08:33 Dose: 1 drop Quetiapine Fumarate (Seroquel) 25 mg PO DAILY@0800 [facility] Last Admin: 04/17/18 08:33 Dose: 25 mg Quetiapine Fumarate (Seroquel) 50 mg PO DAILY@2000 [facility] Last Admin: 04/16/18 19:51 Dose: 50 mg Senna/Docusate Sodium (Senokot-S, Lissette-Colace) 2 tablet PO BID [facility] Last Admin: 04/17/18 08:33 Dose: 2 tablet Medical Necessity - Tobacco Use Smoking Status: Heavy Smoker (>10/day) Tobacco Use: Cigarettes Assessment/Plan This is a 57 years old female patient is being admitted to rehabilitation unit after she underwent meningioma resection with CSF leak status post right TECHNICIAN SUPPORT ASSOCIATION shunt placement and she has a history of recurrent meningiomas. #1 status post meningioma resection and TECHNICIAN SUPPORT [employer]OCIATION shunt due to CSF leak: Right parietal surgical scar is clean and dry. Neurologically stable. Vital signs are stable. Labs from April 07, 2018 reviewed and was unremarkable. She is doing good with physical therapy. She still has some problem in balance and equilibrium. 2. Pyuria IN UA: Patient denies lower urinary tract symptoms. UA shows mild leukocyte esterase and WBC 10-25 cells per hpf. Urine culture shows contamination of mixed organism. UTI ruled out. No antibiotic indicated. 3 hypertension: Blood pressure stable, currently she is not on any antihypertensive medications. moderate protein calorie malnutrition: Nutrition is seeing the patient, she is on supplements. #4 anxiety/depression and some mild insomnia: Continue Seroquel. Additional Ambien 5 mg as patient having hard time in initiation and maintenance of sleep #5 DVT prophylaxis: Subcu Lovenox. Code Visit Inpatient E&M: 90349 Subs Hosp L2
[2018-04-17 19:13] VITALS: BP 90/67; PULSE 86; RESP 18; TEMP 37.2; O2SAT 97
[2018-04-17 20:00] VITALS: PULSE 86; RESP 18
[2018-04-17] MEDS: QUEtiapine 25 MG Tablet 50 MG PO (20:05)
[2018-04-17] MEDS: Mirtazapine 15 MG Tablet PO (20:05)
--- NOTE | 2018-04-18 02:00 | NURSING ---
Reviewed and agree with STAVE AND BOLT EQUALIZER documentation and FIMS charting.
[2018-04-18] MEDS: Enoxaparin 30 MG/0.3 ML Syringe SC (06:04)
[2018-04-18 07:36] VITALS: BP 107/66; PULSE 77; RESP 18; TEMP 36.7; O2SAT 94
[2018-04-18] MEDS: prednisoLONE eye drops (1 mL) 1 DROP OPTH.BTL 1 DRP RIGHT EYE ×2 (07:58→20:08)
[2018-04-18] MEDS: Senna/Docusate Sodium 1 Tablet 2 TABLET PO ×2 (07:58→20:07)
[2018-04-18] MEDS: QUEtiapine 25 MG Tablet PO (07:58)
--- NOTE | 2018-04-18 09:20 | CASEMGMT ---
Team meeting held. Patient present as well as patient family. No discharge date set at this time. Team did broach topic of discharge date as insurance is requesting for a discharge date to be set. Patient and patient family that were present were unsure about what day would work for discharge. Patient requesting for this social welfare administrator to contact patient sonJoseluis in regards to setting a discharge date. Team continues to recommend for patient to have 24hr care at time of discharge. Patient voicing understanding. Patient to continue with further care and treatment on the Inpatient Rehab Unit at this time. Patient with insurance update due on 04/19/18. Telephone call to Joseluismarkos encouraging Joseluis to contact this social welfare administrator by 10:00am on 04/19/18 in order to be able to include discharge date in the insurance update. Support given. Will continue to follow. Nandini PEÑA, PACKAGE DELIVERY DRIVER
--- NOTE | 2018-04-18 09:30 | NURSING ---
Brother in team meeting and he is aware that family needs to call Dr. Carolina office to schedule a follow up appt and he verbalized understanding.
[2018-04-18] MEDS: Acetaminophen 325 MG Tablet 650 MG PO ×2 (10:39→20:08)
--- NOTE | 2018-04-18 10:41 | PN.NEURO_ITS ---
Subjective: Staffed in team meeting. Family at bedside. Questions answered. With Physical therapy she is standby assist for getting to her feet, and for transfers. She is able to walk about 160 feet with a walker at standby assist. Walked in the community with the walker did very well, did not require any cues for safety. Challenged her balance she did not have any loss of balance. She is able to go up and down 10 steps using one handrails at stand by to contact guard. With Occupational therapy, she is stand by assist for all self care, she occasionally needs help with some of her clothing, mostly to orient how the clothing items should go on, she is requiring less cues for this. With Speech therapy, they will continue to work on the higher executive functional task. With Nursing, no new issues. 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 He discussed the risk involved in doing a resection of this tumor. He also emphasized the need for 24 hour care if she is discharged home. He will see the patient back again in 4-6 weeks. We will re-team again next if the patient is still here. - Physical Exam General: Alert, Oriented x3, Cooperative HEENT: Atraumatic, PERRLA, EOMI, Normocephalic Neck: Supple, No JVD, Negative Carotid Bruits Lungs: Clear to auscultation, Normal air movement Cardiovascular: Regular rate, No murmurs Abdomen: Bowel Sounds Present, Soft, Non Tender Extremities: No edema, Capillary Refill Less than 3 Seconds Skin: No rashes, No breakdown Musculoskeletal: No Tenderness to Palpation of Joints or Extremities Neurological: Cranial nerves II-XII grossly intact Psych/Mental Status: Normal Affect, Appropriate, Alert and oriented to time, place, person, mood and affect Vital Signs Temp Pulse Resp BP Pulse Ox 98.1 F 77 18 107/66 94 04/18/18 07:36 04/18/18 07:36 04/18/18 07:36 04/18/18 07:36 04/18/18 07:36 Oxygen Delivery Method Room Air Weight: 58.7 kg Body Mass Index (BMI) 20.7 Intake and Output for Last 24 Hours 04/16/18 04/17/18 04/18/18 23:59 23:59 23:59 Intake Total 380 / 380 360 / 360 120 / 120 Balance 380 / 380 360 / 360 120 / 120 Active Medications Acetaminophen (Tylenol) 650 mg PO Q8H PRN PRN PRN Reason: HEADACHE Last Admin: 04/18/18 10:39 Dose: 650 mg Hydrocodone Bitart/Acetaminophen ([place] 5mg-325mg) 1 tablet PO Q6H PRN PRN Reason: PAIN Last Admin: 04/16/18 07:53 Dose: 1 tablet Artificial Tears (Tears Naturale, Artificial Tears) 1 drop OPHTHALMIC TID [facility] Last Admin: 04/18/18 06:05 Dose: 1 drop Bisacodyl (Dulcolax) 10 mg RECTAL X1 PRN PRN Reason: CONSTIPATION Last Admin: 03/30/18 21:16 Dose: 10 mg Cholecalciferol (Vitamin D) 1,000 unit PO DAILY [facility] Last Admin: 04/18/18 07:59 Dose: 1,000 unit Enoxaparin Sodium (Lovenox) 30 mg SC DAILY@0600 [facility] Last Admin: 04/18/18 06:04 Dose: 30 mg Mirtazapine (Remeron) 15 mg PO QHS [facility] Last Admin: 04/17/18 20:05 Dose: 15 mg Nutritional Formula (Lactose Free) (Ensure Enlive) 120 ml PO 4X/DAY [facility] Last Admin: 04/18/18 07:58 Dose: 120 ml Prednisolone Acetate (Pred Forte Eye Drops (1 Ml)) 1 drop RIGHT EYE BID [facility] Last Admin: 04/18/18 07:58 Dose: 1 drop Quetiapine Fumarate (Seroquel) 25 mg PO DAILY@0800 [facility] Last Admin: 04/18/18 07:58 Dose: 25 mg Quetiapine Fumarate (Seroquel) 50 mg PO DAILY@2000 [facility] Last Admin: 04/17/18 20:05 Dose: 50 mg Senna/Docusate Sodium (Senokot-S, Lissette-Colace) 2 tablet PO BID [facility] Last Admin: 04/18/18 07:58 Dose: 2 tablet Zolpidem Tartrate (Ambien (Generic)) 5 mg PO QHS PRN PRN PRN Reason: INSOMNIA Medical Necessity - Tobacco Use Smoking Status: Heavy Smoker (>10/day) Tobacco Use: Cigarettes Assessment/Plan Early status post meningioma resection status post CSF leak and shunt. The patient was previously independent goal of rehab is [facility] of prior level functional independence. Plan: - Physical therapy for gait and balance - Occupational Therapy for ADLs - Speech therapy for speech and swallowing as well as cognition - As needed analgesics - Bowel protocol - DVT prophylaxis: Lovenox, SCDs, Kael han - Circadian disruption: Will stimulate during daytime with therapies hopefully this will resolve if not they need to address further by adjusting her Xanax dose or adding other sleep aids. - Donor site - C/D/I keep covered with adaptive dressing, do not place gait belt over the area, or below the breast area, may place belt above the breast. - Head incision - May shampoo hair, do not rub incision site, do not scratch incision site. Pat dy incision area. - Depression, decreased appetite => Remeron 15mg at HS - Seroquel 25mg in AM, and 50mg PM
[2018-04-18 20:00] VITALS: BP 105/64; PULSE 67; RESP 16; TEMP 37.1; O2SAT 92
[2018-04-18] MEDS: Mirtazapine 15 MG Tablet PO (20:07)
[2018-04-18] MEDS: QUEtiapine 25 MG Tablet 50 MG PO (20:07)
[2018-04-18] MEDS: Bisacodyl 10 MG Suppository RECTAL (20:13)
--- NOTE | 2018-04-19 03:01 | NURSING ---
REVIEWED AND AGREE WITH GOLF COURSE DESIGNER'S FIM AND HANDOFF CHARTING.
[2018-04-19] MEDS: Enoxaparin 30 MG/0.3 ML Syringe SC (06:35)
[2018-04-19] MEDS: Senna/Docusate Sodium 1 Tablet 2 TABLET PO ×2 (07:54→20:27)
[2018-04-19] MEDS: QUEtiapine 25 MG Tablet PO (07:54)
[2018-04-19] MEDS: prednisoLONE eye drops (1 mL) 1 DROP OPTH.BTL 1 DRP RIGHT EYE ×2 (07:55→20:28)
[2018-04-19 08:15] VITALS: BP 96/66; PULSE 81; RESP 16; TEMP 36.9; O2SAT 97
--- NOTE | 2018-04-19 13:03 | CASEMGMT ---
Social Work Telephone call from patient son. Patient son voicing that a good day for discharge would be 04/26/18 for patient. Spoke with patient and team, 04/26/18 is an agreeable day of discharge and patient would benefit from the further therapy. Patient plans to discharge home with family on 04/26/18. Patient with insurance update due on this day. Will continue to follow. Proposed discharge date: 04/26/18 PLAN: Discharge home with family. Nandini PEÑA, READY TO WEAR DEPARTMENT MANAGER
--- NOTE | 2018-04-19 13:10 | CASEMGMT ---
Insurance Clinical information faxed. Pending continued stay approval. Auth#[id number] Nandini PEÑA, ENGLISH COMPOSITION INSTRUCTOR
[2018-04-19] MEDS: Acetaminophen 325 MG Tablet 650 MG PO ×2 (13:32→20:27)
--- NOTE | 2018-04-19 16:57 | PCM.PN.HOSP ---
Subjective: Patient is very hard of hearing. constipation. No headache. Objective: General: Alert, Cooperative, Disoriented - Disoriented to time and place HEENT: Atraumatic, PERRLA, EOMI, Normocephalic. Bilateral hearing loss most probably sensorineural deafness Neck: Supple, No JVD, Negative Carotid Bruits Lungs: Clear to auscultation, Normal air movement Cardiovascular: Regular rate, Normal S1, Normal S2, No murmurs Abdomen: Bowel Sounds Present, Soft, Non Tender Extremities: No edema, Capillary Refill Less than 3 Seconds Skin: No rashes, No breakdown. Akhil of craniectomy are intact. Musculoskeletal: No Tenderness to Palpation of Joints or Extremities Neurological: - - Right eye ptosis. Psych/Mental Status: Normal Affect, Appropriate Vitals/I&O's: Vital Signs Temp Pulse Resp BP Pulse Ox 98.4 F 81 16 96/66 97 04/19/18 08:15 04/19/18 08:15 04/19/18 08:15 04/19/18 08:15 04/19/18 08:15 Oxygen Delivery Method Room Air Weight: 129 lb 6.581 oz Body Mass Index (BMI) 20.7 Intake and Output for Last 24 Hours 04/17/18 04/18/18 04/19/18 23:59 23:59 23:59 Intake Total 360 / 360 120 / 120 260 / 260 Balance 360 / 360 120 / 120 260 / 260 Current Medications Acetaminophen (Tylenol) 650 mg PO Q8H PRN PRN PRN Reason: HEADACHE Last Admin: 04/19/18 13:32 Dose: 650 mg Hydrocodone Bitart/Acetaminophen ([place] 5mg-325mg) 1 tablet PO Q6H PRN PRN Reason: PAIN Last Admin: 04/16/18 07:53 Dose: 1 tablet Artificial Tears (Tears Naturale, Artificial Tears) 1 drop OPHTHALMIC TID [facility] Last Admin: 04/19/18 13:32 Dose: 1 drop Bisacodyl (Dulcolax) 10 mg RECTAL X1 PRN PRN Reason: CONSTIPATION Last Admin: 04/18/18 20:13 Dose: 10 mg Cholecalciferol (Vitamin D) 1,000 unit PO DAILY [facility] Last Admin: 04/19/18 07:54 Dose: 1,000 unit Enoxaparin Sodium (Lovenox) 30 mg SC DAILY@0600 [facility] Last Admin: 04/19/18 06:35 Dose: 30 mg Mirtazapine (Remeron) 15 mg PO QHS [facility] Last Admin: 04/18/18 20:07 Dose: 15 mg Nutritional Formula (Lactose Free) (Ensure Enlive) 120 ml PO 4X/DAY [facility] Last Admin: 04/19/18 13:32 Dose: 120 ml Prednisolone Acetate (Pred Forte Eye Drops (1 Ml)) 1 drop RIGHT EYE BID [facility] Last Admin: 04/19/18 07:55 Dose: 1 drop Quetiapine Fumarate (Seroquel) 25 mg PO DAILY@0800 [facility] Last Admin: 04/19/18 07:54 Dose: 25 mg Quetiapine Fumarate (Seroquel) 50 mg PO DAILY@1999 [facility] Last Admin: 04/18/18 20:07 Dose: 50 mg Senna/Docusate Sodium (Senokot-S, Lissette-Colace) 2 tablet PO BID [facility] Last Admin: 04/19/18 07:54 Dose: 1 tablet Zolpidem Tartrate (Ambien (Generic)) 5 mg PO QHS PRN PRN PRN Reason: INSOMNIA Medical Necessity - Tobacco Use Smoking Status: Heavy Smoker (>10/day) Tobacco Use: Cigarettes Assessment/Plan This is a 57 years old female patient is being admitted to rehabilitation unit after she underwent meningioma resection with CSF leak status post right ARCHIVAL STUDIES PROFESSOR shunt placement and she has a history of recurrent meningiomas. #1 status post meningioma resection and ARCHIVAL STUDIES PROFESSOR shunt due to CSF leak: Right parietal surgical scar is clean and dry. Neurologically stable. Vital signs are stable. Labs from April 07, 2018 reviewed and was unremarkable. She is doing good with physical therapy. She still has some problem in balance and equilibrium. Continue PT and OT 2. Pyuria IN UA: Patient denies lower urinary tract symptoms. UA shows mild leukocyte esterase and WBC 10-25 cells per hpf. Urine culture shows contamination of mixed organism. UTI ruled out. No antibiotic indicated. 3 hypertension: Blood pressure stable, currently she is not on any antihypertensive medications. moderate protein calorie malnutrition: Nutrition is seeing the patient, she is on supplements. #4 anxiety/depression and some mild insomnia: Continue Seroquel. Ambien 5 mg as patient having hard time in initiation and maintenance of sleep. Patient has been on Xanax at home for prolonged time and therefore has cicardian rhythm disorder. Avoid Xanax or other benzodiazepine. #5 DVT prophylaxis: Subcut Lovenox. Code Visit Inpatient E&M: 91561 Subs Hosp L2
--- NOTE | 2018-04-19 17:01 | PN_ITS ---
Subjective: Patient is very hard of hearing. constipation. No headache. Objective: General: Alert, Cooperative, Disoriented - Disoriented to time and place HEENT: Atraumatic, PERRLA, EOMI, Normocephalic. Bilateral hearing loss most probably sensorineural deafness Neck: Supple, No JVD, Negative Carotid Bruits Lungs: Clear to auscultation, Normal air movement Cardiovascular: Regular rate, Normal S1, Normal S2, No murmurs Abdomen: Bowel Sounds Present, Soft, Non Tender Extremities: No edema, Capillary Refill Less than 3 Seconds Skin: No rashes, No breakdown. Akhil of craniectomy are intact. Musculoskeletal: No Tenderness to Palpation of Joints or Extremities Neurological: - - Right eye ptosis. Psych/Mental Status: Normal Affect, Appropriate Vitals/I&O's: Vital Signs Temp Pulse Resp BP Pulse Ox 98.4 F 81 16 96/66 97 04/19/18 08:15 04/19/18 08:15 04/19/18 08:15 04/19/18 08:15 04/19/18 08:15 Oxygen Delivery Method Room Air Weight: 129 lb 6.581 oz Body Mass Index (BMI) 20.7 Intake and Output for Last 24 Hours 04/17/18 04/18/18 04/19/18 23:59 23:59 23:59 Intake Total 360 / 360 120 / 120 260 / 260 Balance 360 / 360 120 / 120 260 / 260 Current Medications Acetaminophen (Tylenol) 650 mg PO Q8H PRN PRN PRN Reason: HEADACHE Last Admin: 04/19/18 13:32 Dose: 650 mg Hydrocodone Bitart/Acetaminophen ([place] 5mg-325mg) 1 tablet PO Q6H PRN PRN Reason: PAIN Last Admin: 04/16/18 07:53 Dose: 1 tablet Artificial Tears (Tears Naturale, Artificial Tears) 1 drop OPHTHALMIC TID [facility] Last Admin: 04/19/18 13:32 Dose: 1 drop Bisacodyl (Dulcolax) 10 mg RECTAL X1 PRN PRN Reason: CONSTIPATION Last Admin: 04/18/18 20:13 Dose: 10 mg Cholecalciferol (Vitamin D) 1,000 unit PO DAILY [facility] Last Admin: 04/19/18 07:54 Dose: 1,000 unit Enoxaparin Sodium (Lovenox) 30 mg SC DAILY@0600 [facility] Last Admin: 04/19/18 06:35 Dose: 30 mg Mirtazapine (Remeron) 15 mg PO QHS [facility] Last Admin: 04/18/18 20:07 Dose: 15 mg Nutritional Formula (Lactose Free) (Ensure Enlive) 120 ml PO 4X/DAY [facility] Last Admin: 04/19/18 13:32 Dose: 120 ml Prednisolone Acetate (Pred Forte Eye Drops (1 Ml)) 1 drop RIGHT EYE BID [facility] Last Admin: 04/19/18 07:55 Dose: 1 drop Quetiapine Fumarate (Seroquel) 25 mg PO DAILY@0800 [facility] Last Admin: 04/19/18 07:54 Dose: 25 mg Quetiapine Fumarate (Seroquel) 50 mg PO DAILY@1999 [facility] Last Admin: 04/18/18 20:07 Dose: 50 mg Senna/Docusate Sodium (Senokot-S, Lissette-Colace) 2 tablet PO BID [facility] Last Admin: 04/19/18 07:54 Dose: 1 tablet Zolpidem Tartrate (Ambien (Generic)) 5 mg PO QHS PRN PRN PRN Reason: INSOMNIA Medical Necessity - Tobacco Use Smoking Status: Heavy Smoker (>10/day) Tobacco Use: Cigarettes Assessment/Plan This is a 57 years old female patient is being admitted to rehabilitation unit after she underwent meningioma resection with CSF leak status post right INFERTILITY MEDICAL ASSISTANT shunt placement and she has a history of recurrent meningiomas. #1 status post meningioma resection and INFERTILITY MEDICAL ASSISTANT shunt due to CSF leak: Right parietal surgical scar is clean and dry. Neurologically stable. Vital signs are stable. Labs from April 07, 2018 reviewed and was unremarkable. She is doing good with physical therapy. She still has some problem in balance and equilibrium. Continue PT and OT 2. Pyuria IN UA: Patient denies lower urinary tract symptoms. UA shows mild leukocyte esterase and WBC 10-25 cells per hpf. Urine culture shows contamination of mixed organism. UTI ruled out. No antibiotic indicated. 3 hypertension: Blood pressure stable, currently she is not on any antihypertensive medications. moderate protein calorie malnutrition: Nutrition is seeing the patient, she is on supplements. #4 anxiety/depression and some mild insomnia: Continue Seroquel. Ambien 5 mg as patient having hard time in initiation and maintenance of sleep. Patient has been on Xanax at home for prolonged time and therefore has cicardian rhythm disorder. Avoid Xanax or other benzodiazepine. #5 DVT prophylaxis: Subcut Lovenox. Code Visit Inpatient E&M: 04938 Subs Hosp L2
[2018-04-19] MEDS: Mirtazapine 15 MG Tablet PO (20:27)
[2018-04-19] MEDS: QUEtiapine 25 MG Tablet 50 MG PO (20:27)
[2018-04-19 20:30] VITALS: BP 96/65; PULSE 77; RESP 16; TEMP 36.8; O2SAT 94
--- NOTE | 2018-04-20 05:13 | NURSING ---
Reviewed and agree with LPNs fims and handoff
[2018-04-20] MEDS: Enoxaparin 30 MG/0.3 ML Syringe SC (06:28)
[2018-04-20] MEDS: Acetaminophen 325 MG Tablet 650 MG PO (07:10)
[2018-04-20 08:14] VITALS: BP 106/69; PULSE 72; RESP 16; TEMP 36.6; O2SAT 92
[2018-04-20] MEDS: prednisoLONE eye drops (1 mL) 1 DROP OPTH.BTL 1 DRP RIGHT EYE ×2 (09:08→20:32)
[2018-04-20] MEDS: Senna/Docusate Sodium 1 Tablet 2 TABLET PO (09:09)
[2018-04-20] MEDS: QUEtiapine 25 MG Tablet PO (09:09)
--- NOTE | 2018-04-20 17:17 | PN_ITS ---
Subjective: Patient has no concerns. She denies any pain or distress. Objective: General: Alert, Cooperative, Disoriented - Mild Disorientation. She stated that she is in a Rehab facility at [place]. And today's date was April 21. HEENT: Atraumatic, PERRLA, EOMI, Normocephalic. Neck: Supple, No JVD, Negative Carotid Bruits Lungs: Clear to auscultation, Normal air movement Cardiovascular: Regular rate, Normal S1, Normal S2, No murmurs Abdomen: Bowel Sounds Present, Soft, Non Tender Extremities: No edema, Capillary Refill Less than 3 Seconds Skin: No rashes, No breakdown. Akhil of craniectomy are intact. Musculoskeletal: No Tenderness to Palpation of Joints or Extremities Neurological: - - Right eye ptosis. Psych/Mental Status: Normal Affect, Appropriate Vitals/I&O's: Vital Signs Temp Pulse Resp BP Pulse Ox 97.9 F 72 16 106/69 92 04/20/18 08:14 04/20/18 08:14 04/20/18 08:14 04/20/18 08:14 04/20/18 08:14 Oxygen Delivery Method Room Air Weight: 58.7 kg Body Mass Index (BMI) 20.7 Intake and Output for Last 24 Hours 04/18/18 04/19/18 04/20/18 23:59 23:59 23:59 Intake Total 120 / 120 260 / 260 120 / 120 Balance 120 / 120 260 / 260 120 / 120 Current Medications Acetaminophen (Tylenol) 650 mg PO Q8H PRN PRN PRN Reason: HEADACHE Last Admin: 04/20/18 07:10 Dose: 650 mg Hydrocodone Bitart/Acetaminophen ([place] 5mg-325mg) 1 tablet PO Q6H PRN PRN Reason: PAIN Last Admin: 04/16/18 07:53 Dose: 1 tablet Artificial Tears (Tears Naturale, Artificial Tears) 1 drop OPHTHALMIC TID [facility] Last Admin: 04/20/18 16:00 Dose: 1 drop Bisacodyl (Dulcolax) 10 mg RECTAL X1 PRN PRN Reason: CONSTIPATION Last Admin: 04/18/18 20:13 Dose: 10 mg Cholecalciferol (Vitamin D) 1,000 unit PO DAILY [facility] Last Admin: 04/20/18 09:09 Dose: 1,000 unit Enoxaparin Sodium (Lovenox) 30 mg SC DAILY@0600 [facility] Last Admin: 04/20/18 06:28 Dose: 30 mg Mirtazapine (Remeron) 15 mg PO QHS [facility] Last Admin: 04/19/18 20:27 Dose: 15 mg Nutritional Formula (Lactose Free) (Ensure Enlive) 120 ml PO 4X/DAY [facility] Last Admin: 04/20/18 16:01 Dose: Not Given Prednisolone Acetate (Pred Forte Eye Drops (1 Ml)) 1 drop RIGHT EYE BID [facility] Last Admin: 04/20/18 09:08 Dose: 1 drop Quetiapine Fumarate (Seroquel) 25 mg PO DAILY@0800 [facility] Last Admin: 04/20/18 09:09 Dose: 25 mg Quetiapine Fumarate (Seroquel) 50 mg PO DAILY@1999 [facility] Last Admin: 04/19/18 20:27 Dose: 50 mg Senna/Docusate Sodium (Senokot-S, Lissette-Colace) 2 tablet PO BID [facility] Last Admin: 04/20/18 09:09 Dose: 2 tablet Zolpidem Tartrate (Ambien (Generic)) 5 mg PO QHS PRN PRN PRN Reason: INSOMNIA Medical Necessity - Tobacco Use Smoking Status: Heavy Smoker (>10/day) Tobacco Use: Cigarettes Assessment/Plan This is a 57 years old female patient with recurrent meningiomas undergoing therapy after meningioma resection with CSF leak status post right SEAMER OPERATOR shunt placement . #1 status post meningioma resection and SEAMER OPERATOR shunt due to CSF leak: Medically stable. Patient to continue continue with PT and OT to improve on balance and equilibrium. 2. Asymptomatic pyuria pyuria No treatment indicated. 3 hypertension: Blood pressure stable, currently she is not on any antihypertensive medications. moderate protein calorie malnutrition: Nutrition is seeing the patient, she is on supplements. #4 anxiety/depression and some mild insomnia: Continue Seroquel and mirtazapine.. Ambien 5 mg as patient having hard time in initiation and maintenance of sleep. Patient has been on Xanax at home for prolonged time and therefore has circadian rhythm disorder. Avoid Xanax or other benzodiazepine. #5 DVT prophylaxis: Subcut Lovenox. Code Visit Inpatient E&M: 72832 Subs Hosp L2
[2018-04-20] MEDS: QUEtiapine 25 MG Tablet 50 MG PO (20:32)
[2018-04-20] MEDS: Mirtazapine 15 MG Tablet PO (20:32)
[2018-04-20 20:36] VITALS: BP 111/70; PULSE 58; RESP 18; TEMP 37; O2SAT 95
[2018-04-20 20:38] VITALS: PULSE 58; RESP 18; O2SAT 95
--- NOTE | 2018-04-21 03:22 | NURSING ---
Reviewed and agree with LPNs fims and handoff
[2018-04-21] MEDS: Enoxaparin 30 MG/0.3 ML Syringe SC (05:25)
[2018-04-21 08:02] VITALS: BP 101/63; PULSE 74; RESP 18; TEMP 36.9; O2SAT 95
[2018-04-21] MEDS: QUEtiapine 25 MG Tablet PO (08:36)
[2018-04-21] MEDS: prednisoLONE eye drops (1 mL) 1 DROP OPTH.BTL 1 DRP RIGHT EYE ×2 (08:36→20:24)
--- NOTE | 2018-04-21 15:20 | NURSING ---
pt has light greenish drainage coming from R. ear collecting on pillow case, this RN examined ear appears to have wax and drainage in ear, hospitalist was notified and will come see pt this shift.
[2018-04-21 18:20] VITALS: BP 93/76; PULSE 80; RESP 17; TEMP 36.8; O2SAT 92
--- NOTE | 2018-04-21 19:36 | PCM.PN.HOSP ---
Subjective: Patient reports drainage from her bilateral ears with right worse than left. Drainage is green to brown. She reports headache that nursing staff confirms to be unchanged from her baseline. Patient uses hearing aids. Nurse reports that patient's hearing has declined in the past week. She denies being in acute distress. Objective: General: Alert, Cooperative, oriented to date. Knows that she is at a [facility] but frequently forgets that [facility]. HEENT: Atraumatic, PERRLA, EOMI, surgical deformities to right side of head. Thick ear wax in left ear. Right ear with a transparent thick colorless substance Neck: Supple, No JVD, Negative Carotid Bruits Lungs: Clear to auscultation, Normal air movement Cardiovascular: Regular rate, Normal S1, Normal S2, No murmurs Abdomen: Bowel Sounds Present, Soft, Non Tender Extremities: No edema, Capillary Refill Less than 3 Seconds Skin: No rashes, No breakdown. Akhil of craniectomy are intact. Musculoskeletal: No Tenderness to Palpation of Joints or Extremities Neurological: - - Right eye ptosis. Psych/Mental Status: Normal Affect, Appropriate Vitals/I&O's: Vital Signs Temp Pulse Resp BP Pulse Ox 98.2 F 80 17 93/76 92 04/21/18 18:20 04/21/18 18:20 04/21/18 18:20 04/21/18 18:20 04/21/18 18:20 Oxygen Delivery Method Room Air Weight: 58.7 kg Body Mass Index (BMI) 20.7 Intake and Output for Last 24 Hours 04/19/18 04/20/18 04/21/18 23:59 23:59 23:59 Intake Total 260 / 260 120 / 120 300 / 300 Balance 260 / 260 120 / 120 300 / 300 Current Medications Acetaminophen (Tylenol) 650 mg PO Q8H PRN PRN PRN Reason: HEADACHE Last Admin: 04/20/18 07:10 Dose: 650 mg Hydrocodone Bitart/Acetaminophen ([place] 5mg-325mg) 1 tablet PO Q6H PRN PRN Reason: PAIN Last Admin: 04/16/18 07:53 Dose: 1 tablet Artificial Tears (Tears Naturale, Artificial Tears) 1 drop OPHTHALMIC TID BRO Last Admin: 04/21/18 14:49 Dose: 1 drop Bisacodyl (Dulcolax) 10 mg RECTAL X1 PRN PRN Reason: CONSTIPATION Last Admin: 04/18/18 20:13 Dose: 10 mg Cholecalciferol (Vitamin D) 1,000 unit PO DAILY [facility] Last Admin: 04/21/18 08:36 Dose: 1,000 unit Enoxaparin Sodium (Lovenox) 30 mg SC DAILY@0600 [facility] Last Admin: 04/21/18 05:25 Dose: 30 mg Mirtazapine (Remeron) 15 mg PO QHS [facility] Last Admin: 04/20/18 20:32 Dose: 15 mg Nutritional Formula (Lactose Free) (Ensure Enlive) 120 ml PO 4X/DAY [facility] Last Admin: 04/21/18 17:29 Dose: Not Given Prednisolone Acetate (Pred Forte Eye Drops (1 Ml)) 1 drop RIGHT EYE BID [facility] Last Admin: 04/21/18 08:36 Dose: 1 drop Quetiapine Fumarate (Seroquel) 25 mg PO DAILY@0800 [facility] Last Admin: 04/21/18 08:36 Dose: 25 mg Quetiapine Fumarate (Seroquel) 50 mg PO DAILY@2000 [facility] Last Admin: 04/20/18 20:32 Dose: 50 mg Senna/Docusate Sodium (Senokot-S, Lissette-Colace) 2 tablet PO BID [facility] Last Admin: 04/21/18 08:36 Dose: Not Given Zolpidem Tartrate (Ambien (Generic)) 5 mg PO QHS PRN PRN PRN Reason: INSOMNIA Medical Necessity - Tobacco Use Smoking Status: Heavy Smoker (>10/day) Tobacco Use: Cigarettes Assessment/Plan This is a 57 years old female patient with recurrent meningiomas undergoing therapy after meningioma resection with CSF leak status post right MERCHANDISE EXECUTIVE shunt placement now with ear discharge . #1 status post meningioma resection and MERCHANDISE EXECUTIVE shunt due to CSF leak: Patient is medically stable at this time. Attempted to notify his neurosurgeon, Dr Carolina ([phone]) who is very familiar with her case about discharge from ears. His office was closed since it is the weekend. And since patient is medically stable, recommend medicine team to notify neurosurgeon Dr Carolina ([phone]) when office is opened. Discussed with primary team and neurology, Dr. Chappell; and nursing team. Patient to continue continue with PT and OT to improve on balance and equilibrium. #2 hypertension: Blood pressure stable, currently she is not on any antihypertensive medications. #3 Moderate protein calorie malnutrition: Dietary supplements continued #4 anxiety/depression and some mild insomnia: Seroquel and mirtazapine continued. Ambien 5 mg for initiation and maintenance of sleep. Patient has been on Xanax at home for prolonged time and therefore has circadian rhythm disorder. Avoid Xanax or other benzodiazepine. #5 DVT prophylaxis: Subcut Lovenox. Code Visit Inpatient E&M: 49963 Subs Hosp L2
--- NOTE | 2018-04-21 19:41 | PN_ITS ---
Subjective: Patient reports drainage from her bilateral ears with right worse than left. Drainage is green to brown. She reports headache that nursing staff confirms to be unchanged from her baseline. Patient uses hearing aids. Nurse reports that patient's hearing has declined in the past week. She denies being in acute distress. Objective: General: Alert, Cooperative, oriented to date. Knows that she is at a [facility] but [facility]. HEENT: Atraumatic, PERRLA, EOMI, surgical deformities to right side of head. Thick ear wax in left ear. Right ear with a transparent thick colorless substance Neck: Supple, No JVD, Negative Carotid Bruits Lungs: Clear to auscultation, Normal air movement Cardiovascular: Regular rate, Normal S1, Normal S2, No murmurs Abdomen: Bowel Sounds Present, Soft, Non Tender Extremities: No edema, Capillary Refill Less than 3 Seconds Skin: No rashes, No breakdown. Akhil of craniectomy are intact. Musculoskeletal: No Tenderness to Palpation of Joints or Extremities Neurological: - - Right eye ptosis. Psych/Mental Status: Normal Affect, Appropriate Vitals/I&O's: Vital Signs Temp Pulse Resp BP Pulse Ox 98.2 F 80 17 93/76 92 04/21/18 18:20 04/21/18 18:20 04/21/18 18:20 04/21/18 18:20 04/21/18 18:20 Oxygen Delivery Method Room Air Weight: 58.7 kg Body Mass Index (BMI) 20.7 Intake and Output for Last 24 Hours 04/19/18 04/20/18 04/21/18 23:59 23:59 23:59 Intake Total 260 / 260 120 / 120 300 / 300 Balance 260 / 260 120 / 120 300 / 300 Current Medications Acetaminophen (Tylenol) 650 mg PO Q8H PRN PRN PRN Reason: HEADACHE Last Admin: 04/20/18 07:10 Dose: 650 mg Hydrocodone Bitart/Acetaminophen ([place] 5mg-325mg) 1 tablet PO Q6H PRN PRN Reason: PAIN Last Admin: 04/16/18 07:53 Dose: 1 tablet Artificial Tears (Tears Naturale, Artificial Tears) 1 drop OPHTHALMIC TID BRO Last Admin: 04/21/18 14:49 Dose: 1 drop Bisacodyl (Dulcolax) 10 mg RECTAL X1 PRN PRN Reason: CONSTIPATION Last Admin: 04/18/18 20:13 Dose: 10 mg Cholecalciferol (Vitamin D) 1,000 unit PO DAILY [facility] Last Admin: 04/21/18 08:36 Dose: 1,000 unit Enoxaparin Sodium (Lovenox) 30 mg SC DAILY@0600 [facility] Last Admin: 04/21/18 05:25 Dose: 30 mg Mirtazapine (Remeron) 15 mg PO QHS [facility] Last Admin: 04/20/18 20:32 Dose: 15 mg Nutritional Formula (Lactose Free) (Ensure Enlive) 120 ml PO 4X/DAY [facility] Last Admin: 04/21/18 17:29 Dose: Not Given Prednisolone Acetate (Pred Forte Eye Drops (1 Ml)) 1 drop RIGHT EYE BID [facility] Last Admin: 04/21/18 08:36 Dose: 1 drop Quetiapine Fumarate (Seroquel) 25 mg PO DAILY@0800 [facility] Last Admin: 04/21/18 08:36 Dose: 25 mg Quetiapine Fumarate (Seroquel) 50 mg PO DAILY@2000 [facility] Last Admin: 04/20/18 20:32 Dose: 50 mg Senna/Docusate Sodium (Senokot-S, Lissette-Colace) 2 tablet PO BID [facility] Last Admin: 04/21/18 08:36 Dose: Not Given Zolpidem Tartrate (Ambien (Generic)) 5 mg PO QHS PRN PRN PRN Reason: INSOMNIA Medical Necessity - Tobacco Use Smoking Status: Heavy Smoker (>10/day) Tobacco Use: Cigarettes Assessment/Plan This is a 57 years old female patient with recurrent meningiomas undergoing therapy after meningioma resection with CSF leak status post right PINEAPPLE PLANTATION MANAGER shunt placement now with ear discharge . #1 status post meningioma resection and PINEAPPLE PLANTATION MANAGER shunt due to CSF leak: Patient is medically stable at this time. Attempted to notify his neurosurgeon , Dr Carolina ([phone]) who is very familiar with her case about discharge from ears. His office was closed since it is the weekend. And since patient is medically stable, recommend medicine team to notify neurosurgeon Dr Carolina ) when office is opened. Discussed with primary team and neurology, Dr. Chappell; and nursing team. Patient to continue continue with PT and OT to improve on balance and equilibrium. #2 hypertension: Blood pressure stable, currently she is not on any antihypertensive medications. #3 Moderate protein calorie malnutrition: Dietary supplements continued #4 anxiety/depression and some mild insomnia: Seroquel and mirtazapine continued. Ambien 5 mg for initiation and maintenance of sleep. Patient has been on Xanax at home for prolonged time and therefore has circadian rhythm disorder. Avoid Xanax or other benzodiazepine. #5 DVT prophylaxis: Subcut Lovenox. Code Visit Inpatient E&M: 12837 Subs Hosp L2
[2018-04-21] MEDS: QUEtiapine 25 MG Tablet 50 MG PO (20:23)
[2018-04-21] MEDS: Mirtazapine 15 MG Tablet PO (20:23)
[2018-04-21 20:30] VITALS: PULSE 80; RESP 17; O2SAT 92
--- NOTE | 2018-04-21 23:10 | NURSING ---
Son called in to ask if pt's ear drainage could be checked for infection and CSF. RN agreed to check with hospitalist. Dr. Sparrow notified (pt previously assessed today by hospitalist) and order recieved for ear drainage culture and analysis for CSF. Speciman x2 collected and sent
--- NOTE | 2018-04-22 02:14 | NURSING ---
Reviewed and agree with LPNs fims and handoff
[2018-04-22] MEDS: Enoxaparin 30 MG/0.3 ML Syringe SC (05:28)
[2018-04-22 07:43] VITALS: BP 82/58; PULSE 77; RESP 16; TEMP 36.8; O2SAT 93
[2018-04-22 08:08] VITALS: BP 96/63; PULSE 70
--- NOTE | 2018-04-22 09:56 | PCM.PN.NEU ---
Subjective: Patient seen and examined. Over the weekend the patient had drainage from her both ears with right worse than left. Drainage was green to brown. The hospitalist attempted to notify Dr. Carolina her surgeon but was unable to speak with him, since his office was closed for the weekend, staff will call today and update Dr. Carolina. Otherwise she is tolerating therapy, denies any pain or discomfort with her ears. Continues to have a slight headache but states it is tolerable and is improving. - Physical Exam General: Alert, Oriented x3, Cooperative HEENT: Atraumatic, PERRLA, EOMI, Normocephalic Neck: Supple, No JVD, Negative Carotid Bruits Lungs: Clear to auscultation, Normal air movement Cardiovascular: Regular rate, No murmurs Abdomen: Bowel Sounds Present, Soft, Non Tender Extremities: No edema, Capillary Refill Less than 3 Seconds Skin: No rashes, No breakdown Musculoskeletal: No Tenderness to Palpation of Joints or Extremities Neurological: Cranial nerves II-XII grossly intact Psych/Mental Status: Normal Affect, Appropriate, Alert and oriented to time, place, person, mood and affect Vital Signs Temp Pulse Resp BP Pulse Ox 98.3 F 70 16 96/63 93 04/22/18 07:43 04/22/18 08:08 04/22/18 07:43 04/22/18 08:08 04/22/18 07:43 Oxygen Delivery Method Room Air Weight: 58.7 kg Body Mass Index (BMI) 20.7 Intake and Output for Last 24 Hours 04/20/18 04/21/18 04/22/18 23:59 23:59 23:59 Intake Total 120 / 120 300 / 300 Balance 120 / 120 300 / 300 Microbiology Past 72 Hours 04/21/18 23:00 Gram Stain - Final Fluid - Other Laboratory Tests Past 24 Hrs 04/21/18 23:00 Miscellaneous Test Cancelled Active Medications Acetaminophen (Tylenol) 650 mg PO Q8H PRN PRN PRN Reason: HEADACHE Last Admin: 04/20/18 07:10 Dose: 650 mg Hydrocodone Bitart/Acetaminophen ([place] 5mg-325mg) 1 tablet PO Q6H PRN PRN Reason: PAIN Last Admin: 04/16/18 07:53 Dose: 1 tablet Artificial Tears (Tears Naturale, Artificial Tears) 1 drop OPHTHALMIC TID BRO Last Admin: 04/22/18 05:28 Dose: 1 drop Bisacodyl (Dulcolax) 10 mg RECTAL X1 PRN PRN Reason: CONSTIPATION Last Admin: 04/18/18 20:13 Dose: 10 mg Cholecalciferol (Vitamin D) 1,000 unit PO DAILY [facility] Last Admin: 04/21/18 08:36 Dose: 1,000 unit Enoxaparin Sodium (Lovenox) 30 mg SC DAILY@0600 [facility] Last Admin: 04/22/18 05:28 Dose: 30 mg Mirtazapine (Remeron) 15 mg PO QHS [facility] Last Admin: 04/21/18 20:23 Dose: 15 mg Nutritional Formula (Lactose Free) (Ensure Enlive) 120 ml PO 4X/DAY [facility] Last Admin: 04/21/18 20:21 Dose: Not Given Prednisolone Acetate (Pred Forte Eye Drops (1 Ml)) 1 drop RIGHT EYE BID [facility] Last Admin: 04/21/18 20:24 Dose: 1 drop Quetiapine Fumarate (Seroquel) 25 mg PO DAILY@0800 [facility] Last Admin: 04/21/18 08:36 Dose: 25 mg Quetiapine Fumarate (Seroquel) 50 mg PO DAILY@2000 [facility] Last Admin: 04/21/18 20:23 Dose: 50 mg Senna/Docusate Sodium (Senokot-S, Lissette-Colace) 2 tablet PO BID [facility] Last Admin: 04/21/18 20:21 Dose: Not Given Zolpidem Tartrate (Ambien (Generic)) 5 mg PO QHS PRN PRN PRN Reason: INSOMNIA Medical Necessity - Tobacco Use Smoking Status: Heavy Smoker (>10/day) Tobacco Use: Cigarettes Assessment/Plan Early status post meningioma resection status post CSF leak and shunt. The patient was previously independent goal of rehab is buddhist of prior level functional independence. Plan: - Physical therapy for gait and balance - Occupational Therapy for ADLs - Speech therapy for speech and swallowing as well as cognition - As needed analgesics - Bowel protocol - DVT prophylaxis: Lovenox, SCDs, Kael hoses - Circadian disruption: Will stimulate during daytime with therapies hopefully this will resolve if not they need to address further by adjusting her Xanax dose or adding other sleep aids. - Donor site - C/D/I keep covered with adaptive dressing, do not place gait belt over the area, or below the breast area, may place belt above the breast. - Head incision - May shampoo hair, do not rub incision site, do not scratch incision site. Pat dy incision area. - Depression, decreased appetite => Remeron 15mg at HS - Seroquel 25mg in AM, and 50mg PM - Drainage from Bilateral ears => green to brownish in color, denies any pain, will notify Dr. Carolina concerning the drainage
--- NOTE | 2018-04-22 10:04 | PN.NEURO_ITS ---
Subjective: Patient seen and examined. Over the weekend the patient had drainage from her both ears with right worse than left. Drainage was green to brown. The hospitalist attempted to notify Dr. Carolina her surgeon but was unable to speak with him, since his office was closed for the weekend, staff will call today and update Dr. Carolina. Otherwise she is tolerating therapy, denies any pain or discomfort with her ears. Continues to have a slight headache but states it is tolerable and is improving. - Physical Exam General: Alert, Oriented x3, Cooperative HEENT: Atraumatic, PERRLA, EOMI, Normocephalic Neck: Supple, No JVD, Negative Carotid Bruits Lungs: Clear to auscultation, Normal air movement Cardiovascular: Regular rate, No murmurs Abdomen: Bowel Sounds Present, Soft, Non Tender Extremities: No edema, Capillary Refill Less than 3 Seconds Skin: No rashes, No breakdown Musculoskeletal: No Tenderness to Palpation of Joints or Extremities Neurological: Cranial nerves II-XII grossly intact Psych/Mental Status: Normal Affect, Appropriate, Alert and oriented to time, place, person, mood and affect Vital Signs Temp Pulse Resp BP Pulse Ox 98.3 F 70 16 96/63 93 04/22/18 07:43 04/22/18 08:08 04/22/18 07:43 04/22/18 08:08 04/22/18 07:43 Oxygen Delivery Method Room Air Weight: 58.7 kg Body Mass Index (BMI) 20.7 Intake and Output for Last 24 Hours 04/20/18 04/21/18 04/22/18 23:59 23:59 23:59 Intake Total 120 / 120 300 / 300 Balance 120 / 120 300 / 300 Microbiology Past 72 Hours 04/21/18 23:00 Gram Stain - Final Fluid - Other Laboratory Tests Past 24 Hrs 04/21/18 23:00 Miscellaneous Test Cancelled Active Medications Acetaminophen (Tylenol) 650 mg PO Q8H PRN PRN PRN Reason: HEADACHE Last Admin: 04/20/18 07:10 Dose: 650 mg Hydrocodone Bitart/Acetaminophen ([place] 5mg-325mg) 1 tablet PO Q6H PRN PRN Reason: PAIN Last Admin: 04/16/18 07:53 Dose: 1 tablet Artificial Tears (Tears Naturale, Artificial Tears) 1 drop OPHTHALMIC TID BRO Last Admin: 04/22/18 05:28 Dose: 1 drop Bisacodyl (Dulcolax) 10 mg RECTAL X1 PRN PRN Reason: CONSTIPATION Last Admin: 04/18/18 20:13 Dose: 10 mg Cholecalciferol (Vitamin D) 1,000 unit PO DAILY [facility] Last Admin: 04/21/18 08:36 Dose: 1,000 unit Enoxaparin Sodium (Lovenox) 30 mg SC DAILY@0600 [facility] Last Admin: 04/22/18 05:28 Dose: 30 mg Mirtazapine (Remeron) 15 mg PO QHS [facility] Last Admin: 04/21/18 20:23 Dose: 15 mg Nutritional Formula (Lactose Free) (Ensure Enlive) 120 ml PO 4X/DAY [facility] Last Admin: 04/21/18 20:21 Dose: Not Given Prednisolone Acetate (Pred Forte Eye Drops (1 Ml)) 1 drop RIGHT EYE BID [facility] Last Admin: 04/21/18 20:24 Dose: 1 drop Quetiapine Fumarate (Seroquel) 25 mg PO DAILY@0800 [facility] Last Admin: 04/21/18 08:36 Dose: 25 mg Quetiapine Fumarate (Seroquel) 50 mg PO DAILY@2000 [facility] Last Admin: 04/21/18 20:23 Dose: 50 mg Senna/Docusate Sodium (Senokot-S, Lissette-Colace) 2 tablet PO BID [facility] Last Admin: 04/21/18 20:21 Dose: Not Given Zolpidem Tartrate (Ambien (Generic)) 5 mg PO QHS PRN PRN PRN Reason: INSOMNIA Medical Necessity - Tobacco Use Smoking Status: Heavy Smoker (>10/day) Tobacco Use: Cigarettes Assessment/Plan Early status post meningioma resection status post CSF leak and shunt. The patient was previously independent goal of rehab is confucianist of prior level functional independence. Plan: - Physical therapy for gait and balance - Occupational Therapy for ADLs - Speech therapy for speech and swallowing as well as cognition - As needed analgesics - Bowel protocol - DVT prophylaxis: Lovenox, SCDs, Kael hoses - Circadian disruption: Will stimulate during daytime with therapies hopefully this will resolve if not they need to address further by adjusting her Xanax dose or adding other sleep aids. - Donor site - C/D/I keep covered with adaptive dressing, do not place gait belt over the area, or below the breast area, may place belt above the breast. - Head incision - May shampoo hair, do not rub incision site, do not scratch incision site. Pat dy incision area. - Depression, decreased appetite => Remeron 15mg at HS - Seroquel 25mg in AM, and 50mg PM - Drainage from Bilateral ears => green to brownish in color, denies any pain, will notify Dr. Carolina concerning the drainage
[2018-04-22] MEDS: prednisoLONE eye drops (1 mL) 1 DROP OPTH.BTL 1 DRP RIGHT EYE ×2 (10:13→20:11)
[2018-04-22] MEDS: Senna/Docusate Sodium 1 Tablet 2 TABLET PO ×2 (10:13→20:10)
[2018-04-22] MEDS: QUEtiapine 25 MG Tablet PO (10:13)
[2018-04-22] MEDS: Acetaminophen 325 MG Tablet 650 MG PO (10:15)
--- NOTE | 2018-04-22 14:02 | NURSING ---
Tel. Dr. Carolina's office left message for them to return call ref. drainage from ears. Their number is [phone]
--- NOTE | 2018-04-22 16:38 | CASEMGMT ---
Social Work Collaborating with patient and patient family, referral to be made to [facility] for the waiver program. Referral made to the [facility] at this time. Will continue to follow. Nandini PEÑA, PRODUCTION OPERATIONS INSPECTOR
--- NOTE | 2018-04-22 16:43 | NURSING ---
Dr. Carolina's office tel. said have pt seen by ENT Dr. Craolina does not think that the drainage is CSF Tel. Ammerist with ENT she stated to call morning of discharge and they will try to fit pt into schedule that day to be seen for Bilat ear drainage. [phone]
[2018-04-22 19:36] VITALS: BP 89/61; PULSE 79; RESP 16; TEMP 37; O2SAT 91
[2018-04-22 20:03] VITALS: PULSE 79; RESP 16; O2SAT 91
[2018-04-22] MEDS: Mirtazapine 15 MG Tablet PO (20:11)
[2018-04-22] MEDS: QUEtiapine 25 MG Tablet 50 MG PO (20:11)
--- NOTE | 2018-04-23 02:43 | NURSING ---
Reviewed and agree with TELLER documentation and FIMs charting.
[2018-04-23] MEDS: Enoxaparin 30 MG/0.3 ML Syringe SC (05:33)
[2018-04-23] MEDS: QUEtiapine 25 MG Tablet PO (07:45)
[2018-04-23] MEDS: prednisoLONE eye drops (1 mL) 1 DROP OPTH.BTL 1 DRP RIGHT EYE ×2 (07:45→21:20)
[2018-04-23] MEDS: HYDROcodone Bitartrate/Apap 5/325 Tablet PO (07:50)
[2018-04-23 07:53] VITALS: BP 88/61; PULSE 83; RESP 16; TEMP 36.6; O2SAT 95
--- NOTE | 2018-04-23 15:56 | CASEMGMT ---
Insurance Continued stay approved with anticipated discharge being 04/26/18. Auth#[id number] Nandini PEÑA, OPERATING SYSTEM PROGRAMMER
[2018-04-23 19:39] VITALS: BP 95/58; PULSE 73; RESP 18; TEMP 37.1; O2SAT 93
[2018-04-23] MEDS: Mirtazapine 15 MG Tablet PO (21:19)
[2018-04-23] MEDS: QUEtiapine 25 MG Tablet 50 MG PO (21:19)
[2018-04-23 22:00] VITALS: O2SAT 94
[2018-04-24] MEDS: Enoxaparin 30 MG/0.3 ML Syringe SC (06:15)
[2018-04-24 07:26] VITALS: BP 98/67; PULSE 76; RESP 16; TEMP 36.7; O2SAT 94
[2018-04-24] MEDS: prednisoLONE eye drops (1 mL) 1 DROP OPTH.BTL 1 DRP RIGHT EYE ×2 (07:40→19:21)
[2018-04-24] MEDS: Senna/Docusate Sodium 1 Tablet 2 TABLET PO ×2 (07:41→19:20)
[2018-04-24] MEDS: QUEtiapine 25 MG Tablet PO (07:41)
--- NOTE | 2018-04-24 09:14 | PN.NEURO_ITS ---
Subjective: Patient seen and examined. The drainage from both her ears has slow significantly, continue Cipro gtts to both ears. She is tolerating therapy, and is doing well, will be discharge home on Sunday this week. - Physical Exam General: Alert, Oriented x3, Cooperative HEENT: Atraumatic, PERRLA, EOMI, Normocephalic Neck: Supple, No JVD, Negative Carotid Bruits Lungs: Clear to auscultation, Normal air movement Cardiovascular: Regular rate, No murmurs Abdomen: Bowel Sounds Present, Soft, Non Tender Extremities: No edema, Capillary Refill Less than 3 Seconds Skin: No rashes, No breakdown Musculoskeletal: No Tenderness to Palpation of Joints or Extremities Neurological: Cranial nerves II-XII grossly intact Psych/Mental Status: Normal Affect, Appropriate, Alert and oriented to time, place, person, mood and affect Vital Signs Temp Pulse Resp BP Pulse Ox 98.1 F 76 16 98/67 94 04/24/18 07:26 04/24/18 07:26 04/24/18 07:26 04/24/18 07:26 04/24/18 07:26 Oxygen Delivery Method Room Air Weight: 60.7 kg Body Mass Index (BMI) 20.7 Intake and Output for Last 24 Hours 04/22/18 04/23/18 04/24/18 23:59 23:59 23:59 Intake Total 240 / 240 480 / 480 Balance 240 / 240 480 / 480 Microbiology Past 72 Hours 04/21/18 23:00 Gram Stain - Final Fluid - Other Body Fluid Culture - Final Staphylococcus epidermidis Corynebacterium amycolatum Active Medications Acetaminophen (Tylenol) 650 mg PO Q8H PRN PRN PRN Reason: HEADACHE Last Admin: 04/22/18 10:15 Dose: 325 mg Hydrocodone Bitart/Acetaminophen ([place] 5mg-325mg) 1 tablet PO Q6H PRN PRN Reason: PAIN Last Admin: 04/23/18 07:50 Dose: 1 tablet Artificial Tears (Tears Naturale, Artificial Tears) 1 drop OPHTHALMIC TID BRO Last Admin: 04/24/18 06:15 Dose: 1 drop Bisacodyl (Dulcolax) 10 mg RECTAL X1 PRN PRN Reason: CONSTIPATION Last Admin: 04/18/18 20:13 Dose: 10 mg Cholecalciferol (Vitamin D) 1,000 unit PO DAILY [facility] Last Admin: 04/24/18 07:41 Dose: 1,000 unit Enoxaparin Sodium (Lovenox) 30 mg SC DAILY@0600 [facility] Last Admin: 04/24/18 06:15 Dose: 30 mg Mirtazapine (Remeron) 15 mg PO QHS [facility] Last Admin: 04/23/18 21:19 Dose: 15 mg Nutritional Formula (Lactose Free) (Ensure Enlive) 120 ml PO 4X/DAY [facility] Last Admin: 04/24/18 07:41 Dose: Not Given Prednisolone Acetate (Pred Forte Eye Drops (1 Ml)) 1 drop RIGHT EYE BID [facility] Last Admin: 04/24/18 07:40 Dose: 1 drop Quetiapine Fumarate (Seroquel) 25 mg PO DAILY@0800 [facility] Last Admin: 04/24/18 07:41 Dose: 25 mg Quetiapine Fumarate (Seroquel) 50 mg PO DAILY@2000 [facility] Last Admin: 04/23/18 21:19 Dose: 50 mg Senna/Docusate Sodium (Senokot-S, Lissette-Colace) 2 tablet PO BID [facility] Last Admin: 04/24/18 07:41 Dose: 2 tablet Zolpidem Tartrate (Ambien (Generic)) 5 mg PO QHS PRN PRN PRN Reason: INSOMNIA Medical Necessity - Tobacco Use Smoking Status: Heavy Smoker (>10/day) Tobacco Use: Cigarettes Assessment/Plan Early status post meningioma resection status post CSF leak and shunt. The patient was previously independent goal of rehab is holiness of prior level functional independence. Plan: - Physical therapy for gait and balance - Occupational Therapy for ADLs - Speech therapy for speech and swallowing as well as cognition - As needed analgesics - Bowel protocol - DVT prophylaxis: Lovenox, SCDs, Kael hoses - Circadian disruption: Will stimulate during daytime with therapies hopefully this will resolve if not they need to address further by adjusting her Xanax dose or adding other sleep aids. - Donor site - C/D/I keep covered with adaptive dressing, do not place gait belt over the area, or below the breast area, may place belt above the breast. - Head incision - May shampoo hair, do not rub incision site, do not scratch incision site. Pat dy incision area. - Depression, decreased appetite => Remeron 15mg at HS - Seroquel 25mg in AM, and 50mg PM - Drainage from Bilateral ears => green to brownish in color, denies any pain, will notify Dr. Carolina concerning the drainage
[2018-04-24] MEDS: Acetaminophen 325 MG Tablet 650 MG PO (09:32)
[2018-04-24] MEDS: Ciprofloxacin 0.3% 2.5ml Bottle 1 DRP OTIC ×2 (14:11→19:21)
[2018-04-24] MEDS: Mirtazapine 15 MG Tablet PO (19:19)
[2018-04-24] MEDS: QUEtiapine 25 MG Tablet 50 MG PO (19:19)
[2018-04-24 19:23] VITALS: BP 97/61; PULSE 64; RESP 16; TEMP 36.8; O2SAT 92
[2018-04-25] MEDS: Ciprofloxacin 0.3% 2.5ml Bottle 1 DRP OTIC ×3 (05:55→19:46)
[2018-04-25] MEDS: Enoxaparin 30 MG/0.3 ML Syringe SC (05:55)
[2018-04-25 07:26] VITALS: BP 99/66; PULSE 81; RESP 16; TEMP 36.7; O2SAT 94
[2018-04-25] MEDS: Senna/Docusate Sodium 1 Tablet 2 TABLET PO (07:42)
[2018-04-25] MEDS: prednisoLONE eye drops (1 mL) 1 DROP OPTH.BTL 1 DRP RIGHT EYE ×2 (07:42→19:47)
[2018-04-25] MEDS: QUEtiapine 25 MG Tablet PO (07:42)
--- NOTE | 2018-04-25 09:46 | PCM.PN.NEU ---
Subjective: Staffed in team meeting. Family was not at bedside. With Physical therapy, She is walking over 150 feet without a device, she is able to go up and down a flight of stairs at stand by assist. On admission her TUG score was 44 seconds with a device, and score now is 14 seconds with out a device. With Occupational therapy, she is able to do all her own basic care, with out the need of cues as to what she needs to do. She is able to dress herself with out cues to help orient her clothing. With Speech therapy, she still requires cues with memory to help remind her of things so that she is able to retain the information. They will continue to work on the higher executive functional skills. With Nursing, the drainage from both ears has stopped since starting the Cipro gtts, she has an appointment with ENT on 04/26. She will be discharged home on 04/26, the team is recommending 24 hour care, and outpatient Speech therapy. - Physical Exam General: Alert, Oriented x3, Cooperative HEENT: Atraumatic, PERRLA, EOMI, Normocephalic Neck: Supple, No JVD, Negative Carotid Bruits Lungs: Clear to auscultation, Normal air movement Cardiovascular: Regular rate, No murmurs Abdomen: Bowel Sounds Present, Soft, Non Tender Extremities: No edema, Capillary Refill Less than 3 Seconds Skin: No rashes, No breakdown Musculoskeletal: No Tenderness to Palpation of Joints or Extremities Neurological: Cranial nerves II-XII grossly intact Psych/Mental Status: Normal Affect, Appropriate, Alert and oriented to time, place, person, mood and affect Vital Signs Temp Pulse Resp BP Pulse Ox 98.0 F 81 16 99/66 94 04/25/18 07:26 04/25/18 07:26 04/25/18 07:26 04/25/18 07:26 04/25/18 07:26 Oxygen Delivery Method Room Air Weight: 60.7 kg Body Mass Index (BMI) 20.7 Intake and Output for Last 24 Hours 04/23/18 04/24/18 04/25/18 23:59 23:59 23:59 Intake Total 480 / 480 Balance 480 / 480 Microbiology Past 72 Hours 04/21/18 23:00 Gram Stain - Final Fluid - Other Body Fluid Culture - Final Staphylococcus epidermidis Corynebacterium amycolatum Anaerobic Culture - Preliminary Checking for anaerobes, further studies to follow. Active Medications Acetaminophen (Tylenol) 650 mg PO Q8H PRN PRN PRN Reason: HEADACHE Last Admin: 04/24/18 09:32 Dose: 650 mg Hydrocodone Bitart/Acetaminophen ([place] 5mg-325mg) 1 tablet PO Q6H PRN PRN Reason: PAIN Last Admin: 04/23/18 07:50 Dose: 1 tablet Artificial Tears (Tears Naturale, Artificial Tears) 1 drop OPHTHALMIC TID [facility] Last Admin: 04/25/18 05:55 Dose: 1 drop Bisacodyl (Dulcolax) 10 mg RECTAL X1 PRN PRN Reason: CONSTIPATION Last Admin: 04/18/18 20:13 Dose: 10 mg Cholecalciferol (Vitamin D) 1,000 unit PO DAILY [facility] Last Admin: 04/25/18 07:42 Dose: 1,000 unit Ciprofloxacin HCl (Ciloxan) 1 drop OTIC TID [facility] Stop: 04/27/18 14:01 Last Admin: 04/25/18 05:55 Dose: 1 drop Enoxaparin Sodium (Lovenox) 30 mg SC DAILY@0600 [facility] Last Admin: 04/25/18 05:55 Dose: 30 mg Mirtazapine (Remeron) 15 mg PO QHS [facility] Last Admin: 04/24/18 19:19 Dose: 15 mg Prednisolone Acetate (Pred Forte Eye Drops (1 Ml)) 1 drop RIGHT EYE BID [facility] Last Admin: 04/25/18 07:42 Dose: 1 drop Quetiapine Fumarate (Seroquel) 25 mg PO DAILY@0800 [facility] Last Admin: 04/25/18 07:42 Dose: 25 mg Quetiapine Fumarate (Seroquel) 50 mg PO DAILY@2000 [facility] Last Admin: 04/24/18 19:19 Dose: 50 mg Senna/Docusate Sodium (Senokot-S, Lissette-Colace) 2 tablet PO BID [facility] Last Admin: 04/25/18 07:42 Dose: 2 tablet Zolpidem Tartrate (Ambien (Generic)) 5 mg PO QHS PRN PRN PRN Reason: INSOMNIA Medical Necessity - Tobacco Use Smoking Status: Heavy Smoker (>10/day) Tobacco Use: Cigarettes Assessment/Plan Early status post meningioma resection status post CSF leak and shunt. The patient was previously independent goal of rehab is worship of prior level functional independence. Plan: - Physical therapy for gait and balance - Occupational Therapy for ADLs - Speech therapy for speech and swallowing as well as cognition - As needed analgesics - Bowel protocol - DVT prophylaxis: Lovenox, SCDs, Kael han - Circadian disruption: Will stimulate during daytime with therapies hopefully this will resolve if not they need to address further by adjusting her Xanax dose or adding other sleep aids. - Donor site - C/D/I keep covered with adaptive dressing, do not place gait belt over the area, or below the breast area, may place belt above the breast. - Head incision - May shampoo hair, do not rub incision site, do not scratch incision site. Pat dy incision area. - Depression, decreased appetite => Remeron 15mg at HS - Seroquel 25mg in AM, and 50mg PM - Drainage from Bilateral ears => green to brownish in color, denies any pain, will notify Dr. Carolina concerning the drainage => Cipro ear gtts started, => no drainage noted over night. Has an appointment with ENT on 04/26.
--- NOTE | 2018-04-25 10:04 | PN.NEURO_ITS ---
Subjective: Staffed in team meeting. Family was not at bedside. With Physical therapy, She is walking over 150 feet without a device, she is able to go up and down a flight of stairs at stand by assist. On admission her TUG score was 44 seconds with a device, and score now is 14 seconds with out a device. With Occupational therapy, she is able to do all her own basic care, with out the need of cues as to what she needs to do. She is able to dress herself with out cues to help orient her clothing. With Speech therapy, she still requires cues with memory to help remind her of things so that she is able to retain the information. They will continue to work on the higher executive functional skills. With Nursing, the drainage from both ears has stopped since starting the Cipro gtts, she has an appointment with ENT on 04/26. She will be discharged home on 04/26, the team is recommending 24 hour care, and outpatient Speech therapy. - Physical Exam General: Alert, Oriented x3, Cooperative HEENT: Atraumatic, PERRLA, EOMI, Normocephalic Neck: Supple, No JVD, Negative Carotid Bruits Lungs: Clear to auscultation, Normal air movement Cardiovascular: Regular rate, No murmurs Abdomen: Bowel Sounds Present, Soft, Non Tender Extremities: No edema, Capillary Refill Less than 3 Seconds Skin: No rashes, No breakdown Musculoskeletal: No Tenderness to Palpation of Joints or Extremities Neurological: Cranial nerves II-XII grossly intact Psych/Mental Status: Normal Affect, Appropriate, Alert and oriented to time, place, person, mood and affect Vital Signs Temp Pulse Resp BP Pulse Ox 98.0 F 81 16 99/66 94 04/25/18 07:26 04/25/18 07:26 04/25/18 07:26 04/25/18 07:26 04/25/18 07:26 Oxygen Delivery Method Room Air Weight: 60.7 kg Body Mass Index (BMI) 20.7 Intake and Output for Last 24 Hours 04/23/18 04/24/18 04/25/18 23:59 23:59 23:59 Intake Total 480 / 480 Balance 480 / 480 Microbiology Past 72 Hours 04/21/18 23:00 Gram Stain - Final Fluid - Other Body Fluid Culture - Final Staphylococcus epidermidis Corynebacterium amycolatum Anaerobic Culture - Preliminary Checking for anaerobes, further studies to follow. Active Medications Acetaminophen (Tylenol) 650 mg PO Q8H PRN PRN PRN Reason: HEADACHE Last Admin: 04/24/18 09:32 Dose: 650 mg Hydrocodone Bitart/Acetaminophen ([place] 5mg-325mg) 1 tablet PO Q6H PRN PRN Reason: PAIN Last Admin: 04/23/18 07:50 Dose: 1 tablet Artificial Tears (Tears Naturale, Artificial Tears) 1 drop OPHTHALMIC TID [facility] Last Admin: 04/25/18 05:55 Dose: 1 drop Bisacodyl (Dulcolax) 10 mg RECTAL X1 PRN PRN Reason: CONSTIPATION Last Admin: 04/18/18 20:13 Dose: 10 mg Cholecalciferol (Vitamin D) 1,000 unit PO DAILY [facility] Last Admin: 04/25/18 07:42 Dose: 1,000 unit Ciprofloxacin HCl (Ciloxan) 1 drop OTIC TID [facility] Stop: 04/27/18 14:01 Last Admin: 04/25/18 05:55 Dose: 1 drop Enoxaparin Sodium (Lovenox) 30 mg SC DAILY@0600 [facility] Last Admin: 04/25/18 05:55 Dose: 30 mg Mirtazapine (Remeron) 15 mg PO QHS [facility] Last Admin: 04/24/18 19:19 Dose: 15 mg Prednisolone Acetate (Pred Forte Eye Drops (1 Ml)) 1 drop RIGHT EYE BID [facility] Last Admin: 04/25/18 07:42 Dose: 1 drop Quetiapine Fumarate (Seroquel) 25 mg PO DAILY@0800 [facility] Last Admin: 04/25/18 07:42 Dose: 25 mg Quetiapine Fumarate (Seroquel) 50 mg PO DAILY@2000 [facility] Last Admin: 04/24/18 19:19 Dose: 50 mg Senna/Docusate Sodium (Senokot-S, Lissette-Colace) 2 tablet PO BID [facility] Last Admin: 04/25/18 07:42 Dose: 2 tablet Zolpidem Tartrate (Ambien (Generic)) 5 mg PO QHS PRN PRN PRN Reason: INSOMNIA Medical Necessity - Tobacco Use Smoking Status: Heavy Smoker (>10/day) Tobacco Use: Cigarettes Assessment/Plan Early status post meningioma resection status post CSF leak and shunt. The patient was previously independent goal of rehab is lutheran of prior level functional independence. Plan: - Physical therapy for gait and balance - Occupational Therapy for ADLs - Speech therapy for speech and swallowing as well as cognition - As needed analgesics - Bowel protocol - DVT prophylaxis: Lovenox, SCDs, Kael han - Circadian disruption: Will stimulate during daytime with therapies hopefully this will resolve if not they need to address further by adjusting her Xanax dose or adding other sleep aids. - Donor site - C/D/I keep covered with adaptive dressing, do not place gait belt over the area, or below the breast area, may place belt above the breast. - Head incision - May shampoo hair, do not rub incision site, do not scratch incision site. Pat dy incision area. - Depression, decreased appetite => Remeron 15mg at HS - Seroquel 25mg in AM, and 50mg PM - Drainage from Bilateral ears => green to brownish in color, denies any pain, will notify Dr. Carolina concerning the drainage => Cipro ear gtts started, => no drainage noted over night. Has an appointment with ENT on 04/26.
--- NOTE | 2018-04-25 10:51 | NURSING ---
no bilateral ear drainage noted this shift.
--- NOTE | 2018-04-25 14:20 | CASEMGMT ---
Team meeting held. Patient present, no support person present as this time. Patient agreeable to this licensed master social worker contacting patient son, Joseluis in regards to meeting and discharge planning. Patient with a discharge date of 04/26/18 and plans to discharge home with family. Team recommending for patient to have 24hr supervision at time of discharge along with continued speech therapy through outpatient therapy services. Patient is agreeable to recommendation and requesting for this licensed master social worker to contact Joseluis in regards to what outpatient facility as patient lives in [place]. Support given to patient. Telephone call to Joseluis. Joseluis reporting that patient will have 24hr care at time of discharge. Joseluis requesting for outpatient speech therapy to be set up through [facility] in [place]. Joseluis planning to provide transportation home for patient at time of discharge around 1:00pm. Joseluis voicing no further needs for patient. Support given. Telephone call to [facility] in [place]. This licensed master social worker setting up outpatient speech therapy for 04/30/18 @ 11:00. Order faxed. Joseluis reporting that appointment time and date is an agreeable date/time. Proposed discharge date: 04/26/18 PLAN: Discharge home with 24hr supervision and outpatient speech therapy. Nandini PEÑA, DIVE SUPERVISOR
[2018-04-25] MEDS: QUEtiapine 25 MG Tablet 50 MG PO (19:46)
[2018-04-25] MEDS: Mirtazapine 15 MG Tablet PO (19:47)
[2018-04-25] MEDS: Acetaminophen 325 MG Tablet 650 MG PO (19:50)
[2018-04-25 19:58] VITALS: BP 97/68; PULSE 77; RESP 17; TEMP 36.7; O2SAT 91
--- NOTE | 2018-04-26 00:43 | NURSING ---
Reviewed and agreed with LPNs fims and handoff
[2018-04-26] MEDS: Ciprofloxacin 0.3% 2.5ml Bottle 1 DRP OTIC ×2 (06:27→14:22)
[2018-04-26] MEDS: Enoxaparin 30 MG/0.3 ML Syringe SC (06:27)
[2018-04-26 08:00] VITALS: BP 98/63; PULSE 73; RESP 16; TEMP 36.5; O2SAT 96
[2018-04-26] MEDS: prednisoLONE eye drops (1 mL) 1 DROP OPTH.BTL 1 DRP RIGHT EYE (08:11)
[2018-04-26] MEDS: QUEtiapine 25 MG Tablet PO (08:11)
[2018-04-26] MEDS: Senna/Docusate Sodium 1 Tablet 2 TABLET PO (08:12)
--- NOTE | 2018-04-26 08:53 | PCM.DC ---
- Discharge Diagnoses Reason(s) for Visit for Discharge Instructions: Meningioma Resection You will use the following diet at home:: Regular Your food should be the consistency of: Regular Your liquids should be the consistency of: Regular/Thin Discharge Activity: May Not Drive, May Shower, May Take a Tub Bath, Use Walker Weight Bearing Status: Weight bearing as tolerated Call your doctor if your incision/area has: Increased Pain/ Swelling, Increased Redness, Foul Smelling Discharge, Swelling at the incision site Call your doctor if you observe: Fever of 101 or Higher, Coldness, Increased Pain, Numbness or Tingling, Change in Color, Inability to urinate, Inability to have a bowel movement, Using more than one pad per hour, Shortness of breath, Dizziness, Fainting spells, Swelling in the ankles, Chest pain, Prolonged hiccoughing, Increased palpitations (irregular heartbeat), Calf discomfort, Uncontrolled pain Allergies/Adverse Reactions: Allergies carbamazepine Adverse Reaction (Verified 03/29/18 15:43) Unknown codeine Adverse Reaction (Verified 03/29/18 15:43) Unknown Medications to take at Discharge ALPRAZolam [Xanax] 0.25 mg PO QHS 03/29/18 Carboxymethyl/Gly/Poly80/Pf [Refresh Optive Advanced Drops] 1 each OP TID 03/29/18 Cholecalciferol (Vitamin D3) [Vitamin D3] 1,000 unit PO DAILY 03/29/18 Fluorometholone Acetate [Flarex] 1 drop RIGHT EYE BID 03/29/18 Hydrocodone/Acetaminophen [Hydrocodon-Acetaminophen 5-325] 1 each PO Q8H PRN 03/29/18 Acetaminophen [Tylenol Tablet] 650 mg PO Q8H PRN PRN tablet 04/26/18 Ciprofloxacin 0.3% [Ciloxan] 1 drp OTIC TID #1 bottle 04/26/18 Mirtazapine [Remeron] 15 mg PO QHS #30 tab 04/26/18 Quetiapine Fumarate [Seroquel] 25 mg PO DAILY@0800 #30 tab 04/26/18 Quetiapine Fumarate [Seroquel] 50 mg PO DAILY@2000 #30 tab 04/26/18 The following prescriptions were given: Mirtazapine [Remeron] 15 mg PO QHS #30 tab Quetiapine Fumarate [Seroquel] 25 mg PO DAILY@0800 #30 tab Quetiapine Fumarate [Seroquel] 50 mg PO DAILY@2000 #30 tab Ciprofloxacin 0.3% [Ciloxan] 1 drp OTIC TID #1 bottle Primary Care Physician: Care Physician,No Primary [Primary Care Provider] - Test Results: Test results from this visit will be discussed in further detail at your follow-up appointment, if applicable. Please Follow Up With: Dr. Cruz Please Follow Up With: Dr. Carolina Please Follow Up With: Outpatient Speech Therapy: [facility] Proposed Discharge Date: 04/26/18
--- NOTE | 2018-04-26 08:57 | DCINST_ITS ---
- Discharge Diagnoses Reason(s) for Visit for Discharge Instructions: Meningioma Resection You will use the following diet at home:: Regular Your food should be the consistency of: Regular Your liquids should be the consistency of: Regular/Thin Discharge Activity: May Not Drive, May Shower, May Take a Tub Bath, Use Walker Weight Bearing Status: Weight bearing as tolerated Call your doctor if your incision/area has: Increased Pain/ Swelling, Increased Redness, Foul Smelling Discharge, Swelling at the incision site Call your doctor if you observe: Fever of 101 or Higher, Coldness, Increased Pain, Numbness or Tingling, Change in Color, Inability to urinate, Inability to have a bowel movement, Using more than one pad per hour, Shortness of breath, Dizziness, Fainting spells, Swelling in the ankles, Chest pain, Prolonged hiccoughing, Increased palpitations (irregular heartbeat), Calf discomfort, Uncontrolled pain Allergies/Adverse Reactions: Allergies carbamazepine Adverse Reaction (Verified 03/29/18 15:43) Unknown codeine Adverse Reaction (Verified 03/29/18 15:43) Unknown Medications to take at Discharge ALPRAZolam [Xanax] 0.25 mg PO QHS 03/29/18 Carboxymethyl/Gly/Poly80/Pf [Refresh Optive Advanced Drops] 1 each OP TID Cholecalciferol (Vitamin D3) [Vitamin D3] 1,000 unit PO DAILY 03/29/18 Fluorometholone Acetate [Flarex] 1 drop RIGHT EYE BID 03/29/18 Hydrocodone/Acetaminophen [Hydrocodon-Acetaminophen 5-325] 1 each PO Q8H PRN Acetaminophen [Tylenol Tablet] 650 mg PO Q8H PRN PRN tablet 04/26/18 Ciprofloxacin 0.3% [Ciloxan] 1 drp OTIC TID #1 bottle 04/26/18 Mirtazapine [Remeron] 15 mg PO QHS #30 tab 04/26/18 Quetiapine Fumarate [Seroquel] 25 mg PO DAILY@0800 #30 tab 04/26/18 Quetiapine Fumarate [Seroquel] 50 mg PO DAILY@2000 #30 tab 04/26/18 The following prescriptions were given: Mirtazapine [Remeron] 15 mg PO QHS #30 tab Quetiapine Fumarate [Seroquel] 25 mg PO DAILY@0800 #30 tab Quetiapine Fumarate [Seroquel] 50 mg PO DAILY@2000 #30 tab Ciprofloxacin 0.3% [Ciloxan] 1 drp OTIC TID #1 bottle Primary Care Physician: Care Physician,No Primary [Primary Care Provider] - Test Results: Test results from this visit will be discussed in further detail at your follow- up appointment, if applicable. Please Follow Up With: Dr. Cruz Please Follow Up With: Dr. Carolina Please Follow Up With: Outpatient Speech Therapy: [facility] Proposed Discharge Date: 04/26/18
--- NOTE | 2018-04-26 08:57 | PCM.RU.DC ---
Rehab Discharge Summary DATE OF ADMISSION: 03/29/18 DATE OF DISCHARGE: 04/26/18 - Rehab Diagnosis Meningioma Resection Discharge Diet: No Restrictions Discharge Activity: May Not Drive, May Shower, May Take a Tub Bath, Use Walker Weight Bearing Status: Weight bearing as tolerated Call your doctor if your incision/area has: Increased Pain/ Swelling, Increased Redness, Foul Smelling Discharge, Swelling at the incision site Call your doctor if you observe: Fever of 101 or Higher, Coldness, Increased Pain, Numbness or Tingling, Change in Color, Inability to urinate, Inability to have a bowel movement, Using more than one pad per hour, Shortness of breath, Dizziness, Fainting spells, Swelling in the ankles, Chest pain, Prolonged hiccoughing, Increased palpitations (irregular heartbeat), Calf discomfort, Uncontrolled pain Home Medications: Medications to take at Discharge ALPRAZolam [Xanax] 0.25 mg PO QHS 03/29/18 Carboxymethyl/Gly/Poly80/Pf [Refresh Optive Advanced Drops] 1 each OP TID 03/29/18 Cholecalciferol (Vitamin D3) [Vitamin D3] 1,000 unit PO DAILY 03/29/18 Fluorometholone Acetate [Flarex] 1 drop RIGHT EYE BID 03/29/18 Hydrocodone/Acetaminophen [Hydrocodon-Acetaminophen 5-325] 1 each PO Q8H PRN 03/29/18 Acetaminophen [Tylenol Tablet] 650 mg PO Q8H PRN PRN tablet 04/26/18 Ciprofloxacin 0.3% [Ciloxan] 1 drp OTIC TID #1 bottle 04/26/18 Mirtazapine [Remeron] 15 mg PO QHS #30 tab 04/26/18 Quetiapine Fumarate [Seroquel] 25 mg PO DAILY@0800 #30 tab 04/26/18 Quetiapine Fumarate [Seroquel] 50 mg PO DAILY@1999 #30 tab 04/26/18 Following Prescrptions Were Given to Patient: Mirtazapine [Remeron] 15 mg PO QHS #30 tab Quetiapine Fumarate [Seroquel] 25 mg PO DAILY@0800 #30 tab Quetiapine Fumarate [Seroquel] 50 mg PO DAILY@1999 #30 tab Ciprofloxacin 0.3% [Ciloxan] 1 drp OTIC TID #1 bottle Primary Care Physician: Care Physician,No Primary [Primary Care Provider] - Please Follow Up With: Dr. Cruz Please Follow Up With: Dr. Carolina Please Follow Up With: Outpatient Speech Therapy: [facility] Disposition: Home - with outpatient Speech therapy Minutes spent on discharge:: 40 Patient Condition:: Good Rehab Course The patient is a 57 year old male who is admitted to the [facility] acute rehab unit status post resection of the right sphenoid wing meningioma which was complicated by a CSF leak requiring apparently multiple surgical repairs. She was originally admitted to [facility] 03/15/18 for meningioma resection. It is indicate that she did have some hallucinations as well as uncontrolled hypertension nausea and vomiting in the hospital at [facility]. She does live with her son in what she describes a two-story house. According to the hospital notes from [facility] she was independent prior to her admission there. Her surgery was performed 03/15/[address] Carolina in [facility]. 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 With Physical therapy she is standby assist for getting to her feet, and for transfers. She is able to walk about 130 feet with a walker at contact guard. She is now able to walk 150 feet without a device. She is able to go up and down a flight of stairs using one handrails at stand by to contact guard. On admission her TUG score was 44 seconds with a device, and score now is 14 seconds with out a device. With Occupational therapy, she is stand by assist for all self care, she is able to now orient her self and her clothing with out difficulty this is a significant improvement from a week or two ago. With Speech therapy, she still requires cues with memory to help remind her of things so that she is able to retain the information. They will continue to work on the higher executive functional skills. Will continue Speech therapy as an outpatient on discharge home. With Nursing, the drainage from both ears has stopped since starting the Cipro gtts, she has an appointment with ENT on 04/26. She will be discharged home on 04/26, the team is recommending 24 hour care, and outpatient Speech therapy. Meaningful Use Info Meaningful Use Diagnoses (Choose all that apply): None applicable
[2018-04-26 14:30] VITALS: BP 98/63; PULSE 73; RESP 16; TEMP 36.5; O2SAT 96
--- NOTE | 2018-04-26 14:35 | NURSING ---
Son here to moss picker patient and aware of dc instruct and verbalized understanding.
--- NOTE | 2018-04-29 08:41 | CASEMGMT ---
Insurance Notified insurance of patient discharge on 04/26/18 to home with family and outpatient speech therapy. Auth#[id number] Nandini PEÑA, YARN MAN
== END 2018-04-26 14:35 | disposition home or self-care (01) | DRG 949 ==
PROVIDERS: Nurse Practitioner Acute Care; Physician Assistant; Admitting Provider Psychiatry & Neurology Neurology; Visit Provider Internal Medicine
DX: Z48.3 Aftercare following surgery for neoplasm (principal); G96.0 Cerebrospinal fluid leak; R44.3 Hallucinations, unspecified; E44.0 Moderate protein-calorie malnutrition; I10 Essential (primary) hypertension; Z86.011 Personal history of benign neoplasm of the brain; Z98.2 Presence of cerebrospinal fluid drainage device; Z87.891 Personal history of nicotine dependence; H54.40 Blindness, one eye, unspecified eye; H02.401 Unspecified ptosis of right eyelid; Z68.21 Body mass index [BMI] 21.0-21.9, adult; K59.09 Other constipation; G47.20 Circadian rhythm sleep disorder, unspecified type; F41.9 Anxiety disorder, unspecified; F32.9 Major depressive disorder, single episode, unspecified; H93.8X3 Other specified disorders of ear, bilateral
CPT/HCPCS: 36415; 70450; 80048; 81001; 85025; 85027; 87070; 87075; 87076; 87077; 87086; 87088; 87186; 87205; 92507; 92523; 97110; 97112; 97116; 97162; 97165; 97530; 97535; 97802; 99406